=== PATIENT | female | born 1955 | race Caucasian/White ===

== ENCOUNTER → 2022-07-29 06:58 | Outpatient (CLI) | payer MEDICARE, MEDICAID, SELFPAY ==
--- NOTE | 2022-07-29 07:04 | XR_ITS ---
FINAL REPORT CLINICAL HISTORY: Right shoulder pain FINDINGS: RIGHT SHOULDER Three views demonstrate no acute fracture or dislocation. The visualized joint spaces are normally aligned. There are mild degenerative changes of the acromioclavicular and glenohumeral joints. A chronic calcification is seen of the AC joint measuring 9 mm. The soft tissues are unremarkable. IMPRESSION: No acute bony abnormality. Reviewed, Interpreted and Dictated by Mars Donaldson III, MD Transcribed by Luna Flaherty Authenticated and [facility]
--- NOTE | 2022-07-29 07:14 | MR_ITS ---
FINAL REPORT CLINICAL HISTORY: Right shoulder pain. LIMITED ROM. NO INJURY OR TRAUMA FINDINGS: Multiplanar MR imaging of the right shoulder was performed without contrast. Motion artifact is seen on all sequences which limits exam sensitivity. There is a high-grade, partial versus complete tear of the distal supraspinatus tendon. Tear measures approximately 13 mm in AP dimension. The infraspinatus tendon is intact. There are mild degenerative changes of the acromioclavicular joint. Moderate fluid is seen in the subacromial/subdeltoid bursa. The glenoid labrum is not well visualized. No definite tear is seen.. The long head of the biceps tendon is intact. There is no evidence of fracture, bone bruise or marrow edema. There are multiple subchondral cysts in the humeral head. No significant glenohumeral joint effusion is identified. The musculature is intact. There is no evidence of soft tissue mass. IMPRESSION: Exam limited by motion artifact. High-grade partial versus complete tear of the distal supraspinatus tendon. 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 Reviewed, Interpreted and Dictated by Mars Donaldson III, MD Transcribed by Luna Flaherty Authenticated and [facility]
== END ==
PROVIDERS: PCP Emergency Medicine; Visit Provider Specialist
DX: M25.511 Pain in right shoulder (principal)
CPT/HCPCS: 73030; 73221

== ENCOUNTER 2022-08-21 08:38 | Emergency (ER) | payer MEDICARE, MEDICAID, SELFPAY ==
[2022-08-21 08:39] VITALS: BP 161/76; PULSE 75; RESP 16; TEMP 37.1; O2SAT 99; BMI 27.9
--- NOTE | 2022-08-21 08:48 | HMH.EDGENADL ---
Discharge Plan Disposition Patient Disposition: Home, Self-Care Condition: Good Chief Complaint: PAIN Prescriptions Prescriptions: No Action atorvastatin [Lipitor] 10 mg tablet 10 mg PO DAILY amlodipine [Norvasc] 10 mg tablet 5 mg PO DAILY carbidopa-levodopa [Sinemet] 25-100 mg tablet 1 tab PO BID sertraline [Zoloft] 25 mg tablet 50 mg PO DAILY Ingrezza 80 mg capsule 80 mg PO DAILY Qty: 30 3RF hydrocodone-acetaminophen 5-325 mg tablet 1 tab PO TID Qty: 90 0RF Referrals Follow up/Referrals: Provider,Referral, MD [Primary Care Provider] - See instructions Activity Restrictions/Add. Instructions Additional Instructions/Restrictions: Follow-up with your orthopedic surgeon Clinical Impressions Clinical Impression: Rotator cuff disorder Instructions Patient Instructions: DI for Shoulder Pain, Shoulder Tendinopathy Discharge ED Provider: Jay Parra Adult HPI General Stated complaint: Rt arm pain, no accident Time Seen by Provider: 08/21/22 08:53 History of Present Illness HPI narrative: This is a 66-year-old white female who presents with pain in her right shoulder. Patient had an MRI done on July 29 which revealed a tear of the distal supraspinatus tendon also mild AC arthrosis with subchondral bursitis. Patient presents today stating that her [place] is not working and she wants something stronger. Patient also is requesting a brace patient denies any numbness or weakness in the right hand patient denies any recent trauma. Related Data Home Medications Medication Instructions Recorded Confirmed amlodipine 10 mg tablet (Norvasc) 5 mg PO DAILY 07/10/22 07/30/22 atorvastatin 10 mg tablet (Lipitor) 10 mg PO DAILY 07/10/22 07/30/22 carbidopa 25 mg-levodopa 100 mg 1 tab PO BID 07/10/22 07/30/22 tablet (Sinemet) sertraline 25 mg tablet (Zoloft) 50 mg PO DAILY 07/10/22 07/30/22 Previous Rx's Medication Instructions Recorded valbenazine 80 mg capsule 80 mg PO DAILY #30 caps 07/30/22 (Ingrezza) hydrocodone 5 mg-acetaminophen 325 1 tab PO TID #90 tabs 08/15/22 mg tablet Allergies Allergy/AdvReac Type Severity Reaction Status Date / Time Unable to Assess Allergy Verified 07/30/22 09:30 PFSH PFSH Disclaimer: The information contained in this section may have been updated after the patient was seen, as this information can be updated by other users. Social History (Updated 07/30/22 @ 18:43 by Mell Horton MD) Smoking Status: Current every day smoker alcohol intake: never current occupational status: unemployed Travel in the last 8 weeks: None ROS Obtained: Yes All systems reviewed & no additional complaints except as documented Skin no rash or lesions HEENT no runny nose sore throat Pulmonary no cough or shortness of breath Cardiovascular no chest pain pressure heaviness GI no abdominal pain nausea or vomiting no dysuria pyuria hematuria Musculoskeletal see HPI Endocrine no polydipsia polyuria or polyphasia Psych no SI or HI The rest of the systems were reviewed and found to be negative Physical Exam Narrative Physical exam: Skin: Warm and dry HEENT: Normocephalic atraumatic extract muscles are intact pupils are equal and reactive to light Neck: Supple nontender Lungs: Clear to auscultation Heart: Regular rate and rhythm Abdomen: NABS soft nontender Extremities: No clubbing cyanosis or edema Neurologic: No unilateral weakness or numbness Lymphatic: No cervical or inguinal adenopathy Musculoskeletal: Examination of the right shoulder reveals tenderness at the AC joint there is limited range of motion due to pain. Distal CMS is intact Psych: No SI or HI General General appearance: alert Respiratory Respiratory exam: Present normal lung sounds bilaterally Cardiovascular Cardiovascular exam: Present regular rate Neurological Exam Neurological exam: Present alert Medical Decision Making Jairo Inquiry Pt receivin
--- NOTE | 2022-08-21 09:05 | PC.NURSE ---
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
[2022-08-21 09:09] VITALS: BP 119/70; PULSE 73; RESP 18; TEMP 36.9; O2SAT 98
== END 2022-08-21 09:10 | disposition home or self-care (01) ==
LOC: ER 09:02
PROVIDERS: Emergency Provider Emergency Medicine; PCP Emergency Medicine
DX: M25.511 Pain in right shoulder (principal); F17.200 Nicotine dependence, unspecified, uncomplicated
CPT/HCPCS: 99282; 99283

== ENCOUNTER 2022-11-07 10:29 | Emergency (ER) | payer MEDICARE, MEDICAID, SELFPAY ==
[2022-11-07 10:31] VITALS: BP 119/58; PULSE 62; RESP 18; TEMP 37.3; O2SAT 97; BMI 27.5
[2022-11-07 10:39] VITALS: BP 119/58; PULSE 64; O2SAT 98
--- NOTE | 2022-11-07 10:39 | PC.NURSE ---
pt given call faustin and is hooked to monitor at this time.
[2022-11-07 11:01] VITALS: BP 123/94; PULSE 65; O2SAT 99
--- NOTE | 2022-11-07 11:12 | HMH.EDGENADL ---
Discharge Plan Disposition Patient Disposition: Home, Self-Care Prescriptions Prescriptions: New ondansetron 4 mg tablet,disintegrating 4 mg PO Q6H PRN (Reason: nausea and vomiting) Qty: 10 0RF No Action atorvastatin [Lipitor] 10 mg tablet 10 mg PO DAILY amlodipine [Norvasc] 10 mg tablet 5 mg PO DAILY sertraline [Zoloft] 25 mg tablet 50 mg PO DAILY carbidopa-levodopa [Sinemet] 25-100 mg tablet 1 tab PO TID Ingrezza 80 mg capsule 80 mg PO DAILY Qty: 30 3RF hydrocodone-acetaminophen 5-325 mg tablet 1 tab PO TID Qty: 90 0RF Referrals Follow up/Referrals: Provider,Referral, MD [Primary Care Provider] - See instructions Activity Restrictions/Add. Instructions Additional Instructions/Restrictions: Call your family doctor to establish care for this visit to the emergency department and schedule follow-up within 48 hours to ensure improvement. If you have any worsening of your condition or any other concerning signs or symptoms, return to the emergency department or your primary care doctor for further evaluation. Clinical Impressions Clinical Impression: Vomiting Qualifiers: Vomiting type: unspecified Nausea presence: with nausea Qualified Code(s): R11.2 - Nausea with vomiting, unspecified Instructions Patient Instructions: DI for Diarrhea and Traveler's Diarrhea -- Adult, DI for Diarrhea and Traveler's Diarrhea -- Child, DI for Nausea -- Adult, DI for Nausea -- Child, Nausea and Vomiting-Adult Discharge ED Provider: Carlos Alberto Salamanca General Adult HPI General Chief complaint: Nausea/Vomiting/Diarrhea Stated complaint: vomiting Time Seen by Provider: 11/07/22 10:36 Mode of Arrival: Ambulatory Source of Information: Patient Limitations: No Limitations Description of Symptoms (Recalled from ER Triage Doc. by RN): Pt reports the food at [facility] is making me sick every time I eat it . Pt reports no vomiting today. Pt states she also pees all the time r/t the tea they are giving me. \ History of Present Illness HPI narrative: This is a 67-year-old female with no relevant medical history presenting with multiple complaints. Patient states that she does not like the food at her [facility] facility and makes her vomit whenever she eats it, but she is able to tolerate from a gas station and other restaurants. Also states that she pees every time she drinks ice tea. Does not wish to live at [place] anymore. Has no other complaints at this time. Related Data Home Medications Medication Instructions Recorded Confirmed amlodipine 10 mg tablet (Norvasc) 5 mg PO DAILY 07/10/22 10/21/22 atorvastatin 10 mg tablet (Lipitor) 10 mg PO DAILY 07/10/22 10/21/22 sertraline 25 mg tablet (Zoloft) 50 mg PO DAILY 07/10/22 10/21/22 carbidopa 25 mg-levodopa 100 mg 1 tab PO TID 10/21/22 10/21/22 tablet (Sinemet) Previous Rx's Medication Instructions Recorded valbenazine 80 mg capsule 80 mg PO DAILY #30 caps 07/30/22 (Ingrezza) hydrocodone 5 mg-acetaminophen 325 1 tab PO TID #90 tabs 11/01/22 mg tablet ondansetron 4 mg disintegrating 4 mg PO Q6H PRN nausea and 11/07/22 tablet vomiting #10 tabs Allergies Allergy/AdvReac Type Severity Reaction Status Date / Time cephalexin [From Keflex] Allergy Intermediate Verified 10/21/22 14:34 [facility] Disclaimer: The information contained in this section may have been updated after the patient was seen, as this information can be updated by other users. Social History Smoking Status: Unknown if ever smoked alcohol intake: never current occupational status: unemployed Travel in the last 8 weeks: None ROS Obtained: Yes All systems reviewed & no additional complaints except as documented Physical Exam General General appearance: alert, in no apparent distress and other ( ) Head Head exam: atraumatic and normocephalic Eye Eye exam: Present normal appearance,
--- NOTE | 2022-11-07 11:27 | PC.NURSE ---
bedside FS 139. pt in the bathroom to give urine sample. notified
[2022-11-07 11:31] LABS: POC Glucose,Bedside 139 (70-110)
[2022-11-07 11:33] LABS: Microscopic, Urine URINE MICROSCOPIC (MICROSCOPIC)
[2022-11-07 11:50] LABS: Appearance,Urine Slightly Cloudy (Clear); Bilirubin,Urine Trace (Negative); Blood, Urine Negative (Negative); Color,Urine Yellow (Yellow); Glucose,Urine (UA) Negative (Negative); Ketones,Urine 1+ (Negative); Leukocyte Esterase,Urine Negative (Negative); Nitrate,Urine Negative (Negative); Protein,Urine 1+ (Negative); Urobilinogen,Urine 0.2 EU/dl (0.2)
[2022-11-07 11:57] LABS: Calcium Oxalate Crystals,Urine 1+ /lpf; Squamous Epithelial Cell,Urine Occasional #/hpf (0-5)
[2022-11-07 12:00] VITALS: BP 149/60; PULSE 58; RESP 19; TEMP 37.2; O2SAT 100
== END 2022-11-07 12:01 | disposition home or self-care (01) ==
PROVIDERS: Emergency Provider Emergency Medicine
DX: R11.2 Nausea with vomiting, unspecified (principal)
CPT/HCPCS: 81001; 82962; 87086; 99284

== ENCOUNTER 2022-11-18 10:48 | Emergency (ER) | payer MEDICARE, MEDICAID, SELFPAY ==
[2022-11-18 11:00] VITALS: BP 118/62; PULSE 69; RESP 20; TEMP 36.6; O2SAT 99; BMI 27.5
--- NOTE | 2022-11-18 11:22 | HMH.EDGENADL ---
Discharge Plan Disposition Patient Disposition: Home, Self-Care Chief Complaint: Skin/Abscess/Foreign Body Prescriptions Prescriptions: No Action atorvastatin [Lipitor] 10 mg tablet 10 mg PO DAILY amlodipine [Norvasc] 10 mg tablet 5 mg PO DAILY sertraline [Zoloft] 25 mg tablet 50 mg PO DAILY carbidopa-levodopa [Sinemet] 25-100 mg tablet 1 tab PO TID Ingrezza 80 mg capsule 80 mg PO DAILY Qty: 30 3RF hydrocodone-acetaminophen 5-325 mg tablet 1 tab PO TID Qty: 90 0RF ondansetron 4 mg tablet,disintegrating 4 mg PO Q6H PRN (Reason: nausea and vomiting) Qty: 10 0RF Referrals Follow up/Referrals: Provider,Referral, MD [Primary Care Provider] - See instructions Activity Restrictions/Add. Instructions Additional Instructions/Restrictions: At this time it was felt you are safe to be discharged home. If new or worsening symptoms please do not hesitate to return the emergency department. If symptoms persist please follow-up with your family doctor as you are able. Please apply your mupirocin 2-3 times a day for 5 days over your infected bug bite. Clinical Impressions Clinical Impression: Bug bite with infection Discharge ED Provider: Fabrice Saenz General Adult HPI General Chief complaint: Skin/Abscess/Foreign Body Stated complaint: sore on Lt ankle, redness Time Seen by Provider: 11/18/22 11:15 Mode of Arrival: Wheelchair Source of Information: Patient Limitations: No Limitations Description of Symptoms (Recalled from ER Triage Doc. by RN): pt to ed c/o red spot on her left ankle. pt states it has been present x2 days. History of Present Illness HPI narrative: Patient is a 67-year-old female with no pertinent past medical history presents emergency department for evaluation of bug bite. It has been there for 1 to 2 weeks, left lateral ankle. Due to overlying redness she presents here for continued evaluation. Patient states she thinks it was a bedbug bite. No other acute complaints at this time. Related Data Home Medications Medication Instructions Recorded Confirmed amlodipine 10 mg tablet (Norvasc) 5 mg PO DAILY 07/10/22 10/21/22 atorvastatin 10 mg tablet (Lipitor) 10 mg PO DAILY 07/10/22 10/21/22 sertraline 25 mg tablet (Zoloft) 50 mg PO DAILY 07/10/22 10/21/22 carbidopa 25 mg-levodopa 100 mg 1 tab PO TID 10/21/22 10/21/22 tablet (Sinemet) Previous Rx's Medication Instructions Recorded valbenazine 80 mg capsule 80 mg PO DAILY #30 caps 07/30/22 (Ingrezza) hydrocodone 5 mg-acetaminophen 325 1 tab PO TID #90 tabs 11/01/22 mg tablet ondansetron 4 mg disintegrating 4 mg PO Q6H PRN nausea and 11/07/22 tablet vomiting #10 tabs Allergies Allergy/AdvReac Type Severity Reaction Status Date / Time cephalexin [From Keflex] Allergy Intermediate Verified 10/21/22 14:34 [facility] Disclaimer: The information contained in this section may have been updated after the patient was seen, as this information can be updated by other users. Social History Smoking Status: Never smoker alcohol intake: never current occupational status: unemployed Travel in the last 8 weeks: None ROS Obtained: Yes Systems reviewed as appropriate & no additional complaints except as documented Physical Exam General General appearance: alert and in no apparent distress Head Head exam: atraumatic and normocephalic Eye Eye exam: Present PERRL ENT ENT exam: Present mucous membranes moist Neck Neck exam: Present normal inspection Chest Chest inspection: Present normal inspection and symmetric chest wall rise Respiratory Respiratory exam: Absent respiratory distress Cardiovascular Cardiovascular exam: Present regular rate and normal rhythm Abdominal Exam Abdominal exam: Present soft Extremities Exam Extremities exam: Present other (Subcentimeter open wound with 0.5 cm circumferential erythema, no fluctuance. L
[2022-11-18 11:40] VITALS: BP 122/70; PULSE 62; RESP 20; TEMP 36.6; O2SAT 98
== END 2022-11-18 11:42 | disposition home or self-care (01) ==
PROVIDERS: Emergency Provider Emergency Medicine
DX: L08.9 Local infection of the skin and subcutaneous tissue, unspecified (principal); S90.562S Insect bite (nonvenomous), left ankle, sequela; W57.XXXS Bitten or stung by nonvenomous insect and other nonvenomous arthropods, sequela
CPT/HCPCS: 99283

== ENCOUNTER 2022-11-27 10:00 | Outpatient (RCR) | payer MEDICARE, MEDICAID, SELFPAY ==
--- NOTE | 2022-10-23 11:04 | HMH.OTOPEV ---
OT Inpatient Evaluation Rehab OT Outpatient Eval Start: 10/23/22 10:36 Freq: Status: Active Protocol: Document 10/23/22 10:37 RMARSHALL (Rec: 10/23/22 11:03 [id number] E-signed By Davin Friend, OT Outpatient Therapy Subjective History Subjective History Pt is a 67 year old female who reports to therapy for initial evaluation to right shoulder. Pt has a past medical history of parkinson' sPt is unable to recall how long her shoulder has been painful and limited AROM. Pt did have a MRI completed in July 2022 and was found to have the following: High-grade partial versus complete tear of the distal supraspinatus tendon. Mild AC joint arthrosis with subacromial/ subdeltoid bursitis. Pt is right hand dominant. Pt reports she had an injection in right shoulder ~8 weeks ago and her pain has improved. However, pt remains significantly limited with AROM and strength at right shoulder. Pt will continue to be seen weekly in order address deficits. Chief Complaint Pain,Stiff,Weakness Symptom Type Ache,Throb,Sharp,Dull Symptoms Relieved By Rest/Positioning Symptoms Aggravated By Physical Activity,Lifting Prior Functional Limitations None Current Functional Limitations Reaching,Lifting,Housework, Dressing,Sleeping,Recreation Activity Symptom Description Intermittent,Activity Dependent Level of pain today (0-10) 0 Pain scale - at its best (0-10) 0 Pain scale - at its worst (0-10) 2 Shoulder/Elbow Eval Shoulder Objective Measurements Shoulder ROM Right Shoulder Abduction Active Range of 65 degrees Motion (degrees) Shoulder Flexion Active Range of Motion 80 degrees (degrees) Query Text: Shoulder External Rotation Active Range 45 degrees of Motion (degrees) Shoulder Internal Rotation Active Range 20 degrees of Motion (degrees) pain with active ROM shoulder exam right standard
--- NOTE | 2022-11-18 10:48 | HMH.RHREAS ---
Rehab Reassessment Rehab OP Re-assessment Start: 10/23/22 10:36 Freq: Status: Active Protocol: Document 11/18/22 10:13 ABEL (Rec: 11/18/22 10:[id number] E-signed By Davin Friend OT Rehab Re-assessment Subjective Subjective It's terrible, you are making it worst. Objective Objective Notes Pt continues to be seen weekly in order to address right shoulder defecits. Each session, pt engages in AROM and AAROM exercises. Pt has continuously refused PROM manual therapy and modalities. Assessment Progress Assessment No Progress Assessment Notes Pt does not demonstrate progress with R shoulder AROM since initial evaluation. Each session, pt remains confrontational towards therapist. Pt constantly accuses therapist of making her right shoulder worse and that she wants to be transferred to [facility]. She consistently refuses prom manual therapy and modalities despite continued re-education of the importance. Therapist attempted discharge of patient today due to no progress, but patient refused and yelled at therapist multiple times then proceeded to make another appointment despite recommendation for discharge. Therapist plans to reach out to Dr. Vasquez and discuss patient's current behavior and noncompliance. R shoulder current AROM Flex: 90 degrees Abd: 65 degrees ER: 45 degrees IR: 20 degrees Patient goals met N/a Goals Not Met see below Revised Goals ST-5 LT-5 Plan Plan Therapist recommends discharge at this time due to continued
== END 2022-11-27 10:05 | disposition home or self-care (01) ==
LOC: OT 10:00
PROVIDERS: PCP Emergency Medicine; Visit Provider Orthopaedic Surgery
DX: M79.601 Pain in right arm (principal)
CPT/HCPCS: 97010; 97110; 97140; 97164; 97166

== ENCOUNTER 2022-11-29 02:04 | Emergency (ER) | payer MEDICARE, MEDICAID, SELFPAY ==
[2022-11-29 02:07] VITALS: BP 166/85; PULSE 65; RESP 18; TEMP 36.3; O2SAT 100; BMI 27.5
--- NOTE | 2022-11-29 02:11 | HMH.EDGENADL ---
Discharge Plan Disposition Patient Disposition: Home, Self-Care Prescriptions Prescriptions: New nitrofurantoin monohyd/m-cryst [Macrobid] 100 mg capsule 100 mg PO BID 5 Days Qty: 10 0RF Rx Instructions: must administer with a meal/food No Action atorvastatin [Lipitor] 10 mg tablet 10 mg PO DAILY amlodipine [Norvasc] 10 mg tablet 5 mg PO DAILY sertraline [Zoloft] 25 mg tablet 50 mg PO DAILY carbidopa-levodopa [Sinemet] 25-100 mg tablet 1 tab PO TID Ingrezza 80 mg capsule 80 mg PO DAILY Qty: 30 3RF hydrocodone-acetaminophen 5-325 mg tablet 1 tab PO TID Qty: 90 0RF ondansetron 4 mg tablet,disintegrating 4 mg PO Q6H PRN (Reason: nausea and vomiting) Qty: 10 0RF Referrals Follow up/Referrals: Provider,Referral, MD [Primary Care Provider] - See instructions Activity Restrictions/Add. Instructions Additional Instructions/Restrictions: Call your family doctor to establish care for this visit to the emergency department and schedule follow-up within 48 hours to ensure improvement. If you have any worsening of your condition or any other concerning signs or symptoms, return to the emergency department or your primary care doctor for further evaluation. Antibiotic twice daily for 5 days. Maintain follow-up with neurology for your Parkinson's and tremor Clinical Impressions Clinical Impression: Tremor, Cystitis, Hypokalemia Discharge ED Provider: Carlos Alberto Salamanca General Adult HPI General Chief complaint: PAIN Stated complaint: body aches and shaking Time Seen by Provider: 11/29/22 02:05 History of Present Illness HPI narrative: 67-year-old female history of hypertension, hyperlipidemia, Parkinson's treated with carbidopa levodopa presenting with shakes. Patient states that she has been shaking worse for about 2 months. Been getting worse the past couple of days and states that she has not been able to sleep. Tolerating p.o. intake, but states that she is achy everywhere. No fevers or chills, dysuria or hematuria, abdominal pain, chest pain, neurologic deficits otherwise. Related Data Home Medications Medication Instructions Recorded Confirmed amlodipine 10 mg tablet (Norvasc) 5 mg PO DAILY 07/10/22 10/21/22 atorvastatin 10 mg tablet (Lipitor) 10 mg PO DAILY 07/10/22 10/21/22 sertraline 25 mg tablet (Zoloft) 50 mg PO DAILY 07/10/22 10/21/22 carbidopa 25 mg-levodopa 100 mg 1 tab PO TID 10/21/22 10/21/22 tablet (Sinemet) Previous Rx's Medication Instructions Recorded valbenazine 80 mg capsule 80 mg PO DAILY #30 caps 07/30/22 (Ingrezza) hydrocodone 5 mg-acetaminophen 325 1 tab PO TID #90 tabs 11/01/22 mg tablet ondansetron 4 mg disintegrating 4 mg PO Q6H PRN nausea and 11/07/22 tablet vomiting #10 tabs nitrofurantoin 100 mg PO BID 5 days #10 caps 11/29/22 monohydrate/macrocrystals 100 mg capsule (Macrobid) Allergies Allergy/AdvReac Type Severity Reaction Status Date / Time cephalexin [From Keflex] Allergy Intermediate Verified 10/21/22 14:34 [facility] Disclaimer: The information contained in this section may have been updated after the patient was seen, as this information can be updated by other users. Social History Smoking Status: Never smoker alcohol intake: never current occupational status: unemployed Travel in the last 8 weeks: None ROS Obtained: Yes All systems reviewed & no additional complaints except as documented Physical Exam General General appearance: alert, in no apparent distress and other (disheveled) Head Head exam: atraumatic and normocephalic Eye Eye exam: Present normal appearance, PERRL and EOMI ENT ENT exam: Present mucous membranes moist Neck Neck exam: Present normal inspection, full ROM and trachea midline Respiratory Respiratory exam: Present normal lung sounds bilaterally; Absent respiratory distress, wheezes, stridor, accessory musc
[2022-11-29 02:24] LABS: Basophils # 0.1 K/mm3 (0-0.2); Basophils % 0.9 % (0.1-2.0); Eosinophils # 0.2 K/mm3 (0.0-0.4); Eosinophils % 3.8 % (0.1-12.0); Hematocrit 43.4 % (37.0-47.0); Hemoglobin 13.4 g/dL (12.2-16.2); Lymphocytes # 1.3 K/mm3 (0.7-4.5); Lymphocytes % 20.8 % (10-50); Mean Corpuscular HGB Conc 30.9 g/dL (31.8-35.4); Mean Corpuscular Hemoglobin 28.6 pg (27.0-31.2); Mean Corpuscular Volume 92.5 fl (81-99); Mean Platelet Volume 7.7 fl (7.4-10.4); Monocytes # 0.5 K/mm3 (0.1-1.0); Monocytes % 7.5 % (1.7-9.3); Neutrophils # 4.3 K/mm3 (1.8-7.8); Platelet Count 281 K/mm3 (142-424); Red Blood Count 4.69 M/mm3 (4.20-5.40); Red Cell Distribution Width 13.3 % (11.5-17.5); White Blood Count 6.4 K/mm3 (4.8-10.8)
[2022-11-29 02:28] LABS: Chloride 101 mmol/L (98-107); Potassium 3.4 mmoL/L (3.5-5.1); Sodium 140 mmol/L (136-145)
[2022-11-29 02:30] LABS: Alanine Aminotransferase 14 U/L (12-78); Alkaline Phosphatase 114 U/L (38-126); Aspartate Amino Transferase 25 U/L (14-36); Bilirubin,Total 0.4 mg/dl (0.2-1.3); Blood Urea Nitrogen 14 mg/dl (7-17); Creatinine Clearance Estimated 69 mL/min (50-200); Estimated Glomerular Filt Rate 55 ml/min (>60); GFR (African American) 67 ML/MIN (>60)
[2022-11-29 02:31] LABS: Albumin Level 4.3 g/dl (3.5-5.0); Albumin/Globulin Ratio 1.5 (1.1-1.8); Anion Gap 13.4 mEq/L (5-15); Calcium 9.2 mg/dl (8.4-10.2); Carbon Dioxide 29 mmol/L (22.0-30.0); Creatine Kinase 40 U/L (30-135); Globulin 2.9 g/dL (1.3-3.2); Glucose 119 mg/dl (74-100); Total Protein,Serum 7.2 g/dl (6.3-8.2)
[2022-11-29 03:21] LABS: Microscopic, Urine URINE MICROSCOPIC (MICROSCOPIC)
[2022-11-29 03:24] LABS: Appearance,Urine SL CLOUDY (Clear); Bilirubin,Urine Negative (Negative); Blood, Urine Negative (Negative); Color,Urine YELLOW (Yellow); Glucose,Urine (UA) Negative (Negative); Ketones,Urine Negative (Negative); Leukocyte Esterase,Urine 2+ (Negative); Nitrate,Urine Negative (Negative); Protein,Urine Negative (Negative); Urobilinogen,Urine 0.2 EU/dl (0.2)
[2022-11-29 03:43] LABS: Amorphous Sediment,Urine 1+ /lpf; Bacteria,Urine 2+ /lpf
--- NOTE | 2022-11-29 04:06 | PC.NURSE ---
Called [facility] for transport, will call back with update.
[2022-11-29 04:14] VITALS: BP 131/78; PULSE 87; RESP 18; TEMP 37.1; O2SAT 97
--- NOTE | 2022-12-03 09:37 | PC.NURSE ---
reviewed urine culture results with Dr. Salamanca, pt d/c on ER on Macrobid bid x5 days. States adequate coverage based on culture and sensitivity is sensitive for macrobid.
== END 2022-11-29 04:26 | disposition home or self-care (01) ==
PROVIDERS: Emergency Provider Emergency Medicine
DX: E87.6 Hypokalemia (principal); G20 Parkinson's disease; N30.01 Acute cystitis with hematuria; E78.5 Hyperlipidemia, unspecified; I10 Essential (primary) hypertension
CPT/HCPCS: 80053; 81001; 82550; 85025; 87086; 87088; 87186; 96365; 99285; J3475

== ENCOUNTER 2022-12-08 23:01 | Emergency (ER) | payer MEDICARE, MEDICAID, SELFPAY ==
[2022-12-08 23:01] VITALS: BP 148/87; PULSE 69; RESP 20; TEMP 36.6; O2SAT 100; BMI 29.8
--- NOTE | 2022-12-08 23:01 | PC.NURSE ---
in room talking with patient at this time.
--- NOTE | 2022-12-08 23:13 | HMH.EDGENADL ---
Discharge Plan Disposition Patient Disposition: Home, Self-Care Prescriptions Prescriptions: New sulfamethoxazole-trimethoprim 800-160 mg tablet 1 tab PO Q12H 7 Days Qty: 14 0RF No Action atorvastatin [Lipitor] 10 mg tablet 10 mg PO DAILY amlodipine [Norvasc] 10 mg tablet 5 mg PO DAILY sertraline [Zoloft] 25 mg tablet 50 mg PO DAILY carbidopa-levodopa [Sinemet] 25-100 mg tablet 1 tab PO TID Ingrezza 80 mg capsule 80 mg PO DAILY Qty: 30 3RF hydrocodone-acetaminophen 5-325 mg tablet 1 tab PO TID Qty: 90 0RF ondansetron 4 mg tablet,disintegrating 4 mg PO Q6H PRN (Reason: nausea and vomiting) Qty: 10 0RF nitrofurantoin monohyd/m-cryst [Macrobid] 100 mg capsule 100 mg PO BID 5 Days Qty: 10 0RF Rx Instructions: must administer with a meal/food Activity Restrictions/Add. Instructions Additional Instructions/Restrictions: Please take antibiotics as prescribed for likely recurrent UTI. Please follow-up with your primary care provider. Please return to the emergency department if you develop any new or worsening symptoms or become concerned for your health. Clinical Impressions Clinical Impression: UTI (urinary tract infection) Instructions Patient Instructions: DI for Acute Abdominal Pain Discharge ED Provider: Hieu Youssef Adult HPI General Chief complaint: Abdominal Pain Stated complaint: Pain Time Seen by Provider: 12/08/22 23:05 History of Present Illness HPI narrative: 67-year-old female history of Parkinson's presents with multiple complaints. She is a resident at [facility]. The first thing that she said during HPI was that she hopes we can keep her for a couple of days because she does not have a ride home. She also reports that she does not like the food there. She reports that she has pain all over. She reports that she was seen here last week for similar symptoms and was diagnosed with a UTI. She reports that she has been taking antibiotics as prescribed but she is not sure what kind. She reports that she has had no fevers at home. She reports urinary symptoms including feeling the need to urinate but not being able to. She has Parkinson's, those symptoms are stable from baseline. She reports midline lower back pain, midline lower abdominal pain, no change in bowel function, no chest pain. Related Data Home Medications Medication Instructions Recorded Confirmed amlodipine 10 mg tablet (Norvasc) 5 mg PO DAILY 07/10/22 10/21/22 atorvastatin 10 mg tablet (Lipitor) 10 mg PO DAILY 07/10/22 10/21/22 sertraline 25 mg tablet (Zoloft) 50 mg PO DAILY 07/10/22 10/21/22 carbidopa 25 mg-levodopa 100 mg 1 tab PO TID 10/21/22 10/21/22 tablet (Sinemet) Previous Rx's Medication Instructions Recorded valbenazine 80 mg capsule 80 mg PO DAILY #30 caps 07/30/22 (Ingrezza) hydrocodone 5 mg-acetaminophen 325 1 tab PO TID #90 tabs 11/01/22 mg tablet ondansetron 4 mg disintegrating 4 mg PO Q6H PRN nausea and 11/07/22 tablet vomiting #10 tabs nitrofurantoin 100 mg PO BID 5 days #10 caps 11/29/22 monohydrate/macrocrystals 100 mg capsule (Macrobid) sulfamethoxazole 800 1 tab PO Q12H 7 days #14 tabs 12/09/22 mg-trimethoprim 160 mg tablet Allergies Allergy/AdvReac Type Severity Reaction Status Date / Time cephalexin [From Keflex] Allergy Intermediate Verified 10/21/22 14:34 PFSH PFS Disclaimer: The information contained in this section may have been updated after the patient was seen, as this information can be updated by other users. Social History Smoking Status: Current every day smoker alcohol intake: never current occupational status: unemployed Travel in the last 8 weeks: None ROS Obtained: Yes All systems reviewed & no additional complaints except as documented Physical Exam General General appearance: alert and in no apparent distress Head Hea
[2022-12-08 23:21] LABS: Basophils % 0.6 % (0.1-2.0); Eosinophils # 0.3 K/mm3 (0.0-0.4); Eosinophils % 3.9 % (0.1-12.0); Hematocrit 41.3 % (37.0-47.0); Lymphocytes # 1.4 K/mm3 (0.7-4.5); Lymphocytes % 20.9 % (10-50); Mean Corpuscular HGB Conc 31.5 g/dL (31.8-35.4); Mean Corpuscular Hemoglobin 29.1 pg (27.0-31.2); Mean Corpuscular Volume 92.3 fl (81-99); Monocytes # 0.5 K/mm3 (0.1-1.0); Monocytes % 6.6 % (1.7-9.3); Neutrophils # 4.6 K/mm3 (1.8-7.8); Platelet Count 269 K/mm3 (142-424); Red Blood Count 4.47 M/mm3 (4.20-5.40); Red Cell Distribution Width 13.2 % (11.5-17.5); White Blood Count 6.7 K/mm3 (4.8-10.8)
[2022-12-08 23:23] LABS: Alanine Aminotransferase 15 U/L (12-78); Albumin Level 4.6 g/dl (3.5-5.0); Albumin/Globulin Ratio 1.6 (1.1-1.8); Alkaline Phosphatase 100 U/L (38-126); Anion Gap 12.4 mEq/L (5-15); Aspartate Amino Transferase 30 U/L (14-36); Bilirubin,Total 0.5 mg/dl (0.2-1.3); Blood Urea Nitrogen 15 mg/dl (7-17); Calcium 9.4 mg/dl (8.4-10.2); Carbon Dioxide 29 mmol/L (22.0-30.0); Chloride 97 mmol/L (98-107); Creatinine Clearance Estimated 64 mL/min (50-200); Estimated Glomerular Filt Rate 49 ml/min (>60); GFR (African American) 60 ML/MIN (>60); Globulin 2.8 g/dL (1.3-3.2); Glucose 144 mg/dl (74-100); Potassium 3.4 mmoL/L (3.5-5.1); Sodium 135 mmol/L (136-145); Total Protein,Serum 7.4 g/dl (6.3-8.2)
[2022-12-08 23:30] VITALS: BP 135/76; PULSE 60; RESP 18; O2SAT 100
[2022-12-08 23:48] LABS: Microscopic, Urine URINE MICROSCOPIC (MICROSCOPIC)
[2022-12-08 23:55] LABS: Appearance,Urine SL CLOUDY (Clear); Blood, Urine Negative (Negative); Color,Urine YELLOW (Yellow); Glucose,Urine (UA) Negative (Negative); Ketones,Urine TRACE (Negative); Leukocyte Esterase,Urine 1+ (Negative); Nitrate,Urine Negative (Negative); PH,Urine 5.5 (5.0-8.5); Protein,Urine TRACE (Negative); Specific Gravity, Urine >= 1.030 (1.005-1.030)
[2022-12-08 23:59] LABS: Bilirubin,Urine 1+ (Negative)
[2022-12-09 00:08] LABS: Bacteria,Urine Trace /lpf; Calcium Oxalate Crystals,Urine 3+ /lpf; RBC,Urine Occasional #/hpf (0-3); Squamous Epithelial Cell,Urine Occasional #/hpf (0-5)
--- NOTE | 2022-12-09 00:22 | PC.NURSE ---
in room talking with patient at this time.
--- NOTE | 2022-12-09 00:38 | PC.NURSE ---
[facility]. staff states they do not have anyone that is able to transport the pt back.
[2022-12-09 00:46] VITALS: BP 135/76; PULSE 58; RESP 18; TEMP 36.7; O2SAT 99
--- NOTE | 2022-12-09 01:24 | PC.NURSE ---
calling dispatch at this time.
--- NOTE | 2022-12-09 02:21 | PC.NURSE ---
called Dispatch at this time.
--- NOTE | 2022-12-09 02:25 | PC.NURSE ---
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
--- NOTE | 2022-12-09 05:57 | PC.NURSE ---
Misty Beck, the Aide at [facility] wanted to check on the pt. Advised them that the pt has been discharged but still waiting for a ride to come pick her up. Advised that they do not have a vehicle at this time but as soon as the dayshift comes on they will send someone. Advised they should be there between [id number]. CR
--- NOTE | 2022-12-09 07:22 | PC.NURSE ---
Called [facility] re pt transport, they advised it would be 8 am before someone could come get them. 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
--- NOTE | 2022-12-09 07:26 | PC.NURSE ---
advised Bisi Wallis of this issue.
--- NOTE | 2022-12-09 08:11 | PC.NURSE ---
pt transportation is here
== END 2022-12-09 08:15 | disposition home or self-care (01) ==
PROVIDERS: Emergency Provider Emergency Medicine; PCP Emergency Medicine
DX: N39.0 Urinary tract infection, site not specified (principal); R10.30 Lower abdominal pain, unspecified; M54.50 Low back pain, unspecified; G20.A1 Parkinson's disease without dyskinesia, without mention of fluctuations; F17.200 Nicotine dependence, unspecified, uncomplicated; B96.89 Other specified bacterial agents as the cause of diseases classified elsewhere
CPT/HCPCS: 80053; 81001; 85025; 87086; 96374; 99285

== ENCOUNTER → 2023-01-20 10:38 | Outpatient (CLI) | payer MEDICARE, MEDICAID, SELFPAY ==
--- NOTE | 2023-01-20 10:50 | XR_ITS ---
PROCEDURE INFORMATION: Exam: XR Pelvis Exam date and time: 01/20/2023 11:02 AM Age: 67 years old Clinical indication: Pelvic pain; Additional info: Bilateral hip pain TECHNIQUE: Imaging protocol: Radiologic exam of the pelvis. Views: 1 or 2 view. COMPARISON: No relevant prior studies available. FINDINGS: Bones/joints: No fractures, dislocations, or bone lesions. Mild bone hypertrophy and medial joint space narrowing in both hips. Mild bone hypertrophy of the right and left greater trochanters and in the sacroiliac joints. Degenerative disc disease in the lower lumbar spine. Soft tissues: No soft tissue masses or radiopaque foreign bodies. IMPRESSION: 1. No acute findings in the pelvis. 2. 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 3. Degenerative disc disease in the lower lumbar spine..
--- NOTE | 2023-01-20 10:50 | XR_ITS ---
PROCEDURE INFORMATION: Exam: XR Left Foot Exam date and time: 01/20/2023 11:02 AM Age: 67 years old Clinical indication: Pain; Foot; Left; Additional info: Left foot pain TECHNIQUE: Imaging protocol: Radiologic exam of the left foot. Views: 1 or 2 views. COMPARISON: CR XR TIBIA FIBULA LT 2V 01/20/2023 11:02 AM FINDINGS: Bones/joints: No fractures, dislocations, or focal bone lesions. Plantar and Achilles heel spurs. Soft tissues: No masses, soft tissue gas, or radiopaque foreign bodies. IMPRESSION: No acute findings in the left foot foot.
--- NOTE | 2023-01-20 10:50 | XR_ITS ---
PROCEDURE INFORMATION: Exam: XR Left Tibia and Fibula Exam date and time: 01/20/2023 11:02 AM Age: 67 years old Clinical indication: Pain; Lower leg; Left; Additional info: Left leg pain TECHNIQUE: Imaging protocol: Radiologic exam of the left tibia and fibula. Views: 2 views. (4 images) COMPARISON: CR XR FOOT LT 2V 01/20/2023 11:02 AM FINDINGS: Bones/joints: No fractures, dislocations, or bone lesions. No significant joint space narrowing or widening. Mild bone hypertrophy of the tibial plateau and medial and lateral malleoli. Plantar and Achilles heel spurs. Soft tissues: No soft tissue gas, radiopaque foreign bodies, or masses. IMPRESSION: 1. No acute findings in the left tibia and fibula. 2. Mild osteoarthritis in the medial left knee and in the left ankle..
== END ==
PROVIDERS: PCP Emergency Medicine; Visit Provider Emergency Medicine
DX: M79.605 Pain in left leg (principal); M25.552 Pain in left hip
CPT/HCPCS: 72170; 73590; 73620

== ENCOUNTER 2023-01-20 11:13 | Emergency (ER) | payer MEDICARE, MEDICAID, SELFPAY ==
[2023-01-20] VITALS (13 sets, daily range): BP systolic 100–137; BP diastolic 53–74; PULSE 52–64; RESP 18; TEMP 36.5; O2SAT 97–100; BMI 27.5
--- NOTE | 2023-01-20 12:12 | HMH.EDGENADL ---
Discharge Plan Disposition Patient Disposition: Home, Self-Care Prescriptions Prescriptions: New gabapentin 100 mg capsule 100 mg PO BID Qty: 14 0RF No Action atorvastatin [Lipitor] 10 mg tablet 10 mg PO DAILY amlodipine [Norvasc] 10 mg tablet 5 mg PO DAILY sertraline [Zoloft] 25 mg tablet 50 mg PO DAILY carbidopa-levodopa [Sinemet] 25-100 mg tablet 1 tab PO TID Ingrezza 80 mg capsule 80 mg PO DAILY Qty: 30 3RF hydrocodone-acetaminophen 5-325 mg tablet 1 tab PO TID Qty: 90 0RF ondansetron 4 mg tablet,disintegrating 4 mg PO Q6H PRN (Reason: nausea and vomiting) Qty: 10 0RF nitrofurantoin monohyd/m-cryst [Macrobid] 100 mg capsule 100 mg PO BID 5 Days Qty: 10 0RF Rx Instructions: must administer with a meal/food sulfamethoxazole-trimethoprim 800-160 mg tablet 1 tab PO Q12H 7 Days Qty: 14 0RF Referrals Follow up/Referrals: Provider,Referral, MD [Primary Care Provider] - See instructions Activity Restrictions/Add. Instructions Additional Instructions/Restrictions: Call your family doctor to establish care for this visit to the emergency department and schedule follow-up within 48 hours to ensure improvement. If you have any worsening of your condition or any other concerning signs or symptoms, return to the emergency department or your primary care doctor for further evaluation. Clinical Impressions Clinical Impression: Intractable neuropathic pain of left lower extremity Discharge ED Provider: Carlos Alberto Salamanca General Adult HPI General Chief complaint: Extremity Injury, Lower Stated complaint: leg pain, no accident Time Seen by Provider: 01/20/23 11:21 Mode of Arrival: Wheelchair Source of Information: Patient Limitations: No Limitations Description of Symptoms (Recalled from ER Triage Doc. by RN): Patient reports left knee pain down to foot for about a month. History of Present Illness HPI narrative: 67-year-old female with numerous comorbidities, but none relevant to this presenting with left lower extremity pain. Patient states has been having pain in her left leg for about a month. She had surgery on her left lower extremity in the past but has chronic pain. It has been worse over the past few weeks. It is a burning, fire pain that does not radiate, mostly in her mid garcia to ankle. No trauma sustained. Has not noticed anything that makes it better or worse. Related Data Home Medications Medication Instructions Recorded Confirmed amlodipine 10 mg tablet (Norvasc) 5 mg PO DAILY 07/10/22 10/21/22 atorvastatin 10 mg tablet (Lipitor) 10 mg PO DAILY 07/10/22 10/21/22 sertraline 25 mg tablet (Zoloft) 50 mg PO DAILY 07/10/22 10/21/22 carbidopa 25 mg-levodopa 100 mg 1 tab PO TID 10/21/22 10/21/22 tablet (Sinemet) Previous Rx's Medication Instructions Recorded valbenazine 80 mg capsule 80 mg PO DAILY #30 caps 07/30/22 (Ingrezza) ondansetron 4 mg disintegrating 4 mg PO Q6H PRN nausea and 11/07/22 tablet vomiting #10 tabs nitrofurantoin 100 mg PO BID 5 days #10 caps 11/29/22 monohydrate/macrocrystals 100 mg capsule (Macrobid) sulfamethoxazole 800 1 tab PO Q12H 7 days #14 tabs 12/09/22 mg-trimethoprim 160 mg tablet hydrocodone 5 mg-acetaminophen 325 1 tab PO TID #90 tabs 12/16/22 mg tablet gabapentin 100 mg capsule 100 mg PO BID #14 caps 01/20/23 Allergies Allergy/AdvReac Type Severity Reaction Status Date / Time cephalexin [From Keflex] Allergy Intermediate Verified 10/21/22 14:34 [facility] Disclaimer: The information contained in this section may have been updated after the patient was seen, as this information can be updated by other users. Social History Smoking Status: Current every day smoker alcohol intake: never current occupational status: unemployed Travel in the last 8 weeks: None ROS Obtained: Yes All systems reviewed & no additional compl
== END 2023-01-20 13:37 | disposition home or self-care (01) ==
PROVIDERS: Emergency Provider Emergency Medicine
DX: M79.605 Pain in left leg (principal); G57.92 Unspecified mononeuropathy of left lower limb; F17.210 Nicotine dependence, cigarettes, uncomplicated
CPT/HCPCS: 72170; 73590; 73620; 99283

== ENCOUNTER 2023-03-02 11:00 | Emergency (ER) | payer MEDICARE, MEDICAID, SELFPAY ==
[2023-03-02 11:00] VITALS: BP 115/67; PULSE 70; RESP 18; O2SAT 99; BMI 27.5
--- NOTE | 2023-03-02 11:13 | PC.NURSE ---
Dr. Silva at [facility] for pt eval
--- NOTE | 2023-03-02 11:19 | HMH.EDGENADL ---
Discharge Plan Disposition Patient Disposition: Home, Self-Care Prescriptions Prescriptions: New gabapentin 300 mg tablet extended release 24 hr 300 mg PO HS 14 Days Qty: 14 0RF No Action atorvastatin [Lipitor] 10 mg tablet 10 mg PO DAILY amlodipine [Norvasc] 10 mg tablet 5 mg PO DAILY sertraline [Zoloft] 25 mg tablet 50 mg PO DAILY carbidopa-levodopa [Sinemet] 25-100 mg tablet 1 tab PO TID Ingrezza 80 mg capsule 80 mg PO DAILY Qty: 30 3RF gabapentin 100 mg capsule 100 mg PO BID Qty: 60 0RF hydrocodone-acetaminophen 5-325 mg tablet 1 tab PO TID Qty: 90 0RF ondansetron 4 mg tablet,disintegrating 4 mg PO Q6H PRN (Reason: nausea and vomiting) Qty: 10 0RF nitrofurantoin monohyd/m-cryst [Macrobid] 100 mg capsule 100 mg PO BID 5 Days Qty: 10 0RF Rx Instructions: must administer with a meal/food sulfamethoxazole-trimethoprim 800-160 mg tablet 1 tab PO Q12H 7 Days Qty: 14 0RF Activity Restrictions/Add. Instructions Additional Instructions/Restrictions: Your symptoms are consistent with a peripheral neuropathy given the stocking glove distribution and [id number] and burning sensation in your lower extremities also with the discontinuation of your gabapentin over the last 2 days. Please do not take previously prescribed gabapentin in addition to the gabapentin that I prescribed to you and discuss further with your primary care doctor escalation of your neuropathic pain medications. No other emergent medical condition identified today. Clinical Impressions Clinical Impression: Peripheral neuropathy, Neuropathic pain Discharge ED Provider: Faith Silva General Adult HPI General Chief complaint: Extremity Problem,Nontraumatic Stated complaint: Leg pain Time Seen by Provider: 03/02/23 11:12 Mode of Arrival: Ambulatory Source of Information: Patient and Medical Record Limitations: No Limitations Description of Symptoms (Recalled from ER Triage Doc. by RN): c/o all over shakes that has gotten worse over the last 2 months, left leg/foot hurts, hx of surgery on this leg and was told she would have trouble from this foot later on, denies any injury to her foot/ankle. Takes medicine for shakes but it doesnt work. History of Present Illness HPI narrative: Patient is a 67-year-old female who is a resident of [facility] presents today with chronic bilateral lower extremity pins and needle and burning pain of the legs worse on the left. Also has a chronic tremor. She states that they recently ran out of gabapentin and she has not had this in 48 hours. Denies any swelling denies any fevers denies any changes in temperature denies any injuries etc. Related Data Home Medications Medication Instructions Recorded Confirmed amlodipine 10 mg tablet (Norvasc) 5 mg PO DAILY 07/10/22 10/21/22 atorvastatin 10 mg tablet (Lipitor) 10 mg PO DAILY 07/10/22 10/21/22 sertraline 25 mg tablet (Zoloft) 50 mg PO DAILY 07/10/22 10/21/22 carbidopa 25 mg-levodopa 100 mg 1 tab PO TID 10/21/22 10/21/22 tablet (Sinemet) Previous Rx's Medication Instructions Recorded valbenazine 80 mg capsule 80 mg PO DAILY #30 caps 07/30/22 (Ingrezza) ondansetron 4 mg disintegrating 4 mg PO Q6H PRN nausea and 11/07/22 tablet vomiting #10 tabs nitrofurantoin 100 mg PO BID 5 days #10 caps 11/29/22 monohydrate/macrocrystals 100 mg capsule (Macrobid) sulfamethoxazole 800 1 tab PO Q12H 7 days #14 tabs 12/09/22 mg-trimethoprim 160 mg tablet gabapentin 100 mg capsule 100 mg PO BID #60 caps 01/28/23 hydrocodone 5 mg-acetaminophen 325 1 tab PO TID #90 tabs 02/03/23 mg tablet gabapentin 300 mg tablet,extended 300 mg PO HS 14 days #14 tabs 03/02/23 release 24 hr Allergies Allergy/AdvReac Type Severity Reaction Status Date / Time cephalexin [From Keflex] Allergy Intermediate Verified 10/21/22 14:34 [facility] Disclaimer: The information contained in this section may have bee
--- NOTE | 2023-03-02 11:33 | PC.NURSE ---
called [facility] to let them no pt was ready for discharge said she would tell her boss
[2023-03-02 12:45] VITALS: BP 115/67; PULSE 70; RESP 18; TEMP 36.7
== END 2023-03-02 12:47 | disposition home or self-care (01) ==
PROVIDERS: Emergency Provider Student in an Organized Health Care Education/Training Program
DX: G62.9 Polyneuropathy, unspecified (principal); M79.604 Pain in right leg; M79.605 Pain in left leg; F17.200 Nicotine dependence, unspecified, uncomplicated
CPT/HCPCS: 99283

== ENCOUNTER 2023-09-13 23:34 | Emergency (ER) | payer MEDICARE, MEDICAID, SELFPAY ==
--- NOTE | 2023-09-13 23:00 | ECG_ITS ---
APPROVED REPORT Exam: Resting ECG HR:47 bpm ECG Measurements Heart Rate [address] 134 P -83 QRSd 98 QRS -35 QT 425 T 77 QTc 388 Conclusion Sinus BRADYCARDIA LEFT AXIS DEVIATION [QRS AXIS < -30] NONSPECIFIC ST & T-WAVE ABNORMALITY Baseline artifact limits interpretation Electronically signed by : EDGAR PETERSON, 09/14/2023 06:46:20
[2023-09-13 23:28] VITALS: BP 139/68; PULSE 57; RESP 16; TEMP 36.5; O2SAT 99; BMI 25.2
--- NOTE | 2023-09-13 23:29 | XR_ITS ---
PROCEDURE INFORMATION: Exam: XR Chest Exam date and time: 09/13/2023 11:38 PM Age: 67 years old Clinical indication: Pain; Chest pressure; Additional info: Cp TECHNIQUE: Imaging protocol: Radiologic exam of the chest. Views: 1 view. Total images: 1 COMPARISON: MR SHOULDER RT WO CON 07/29/2022 7:36 AM FINDINGS: Tubes, catheters and devices: EKG leads are present. Lungs: Unremarkable. No consolidation. No pulmonary vascular congestion or edema. Pleural spaces: Unremarkable. No pleural effusion. No pneumothorax. Heart/Mediastinum: Unremarkable. No cardiomegaly. No mediastinal widening or hilar enlargement. Vasculature: Atherosclerotic aortic arch. Bones/joints: Osteopenia. Mild thoracic dextrocurvature. Mild degenerative changes thoracic spine. IMPRESSION: No radiographically acute cardiopulmonary process.
[2023-09-13 23:34] VITALS: BP 115/57; PULSE 48; RESP 15; O2SAT 99
--- NOTE | 2023-09-13 23:35 | ED_ITS ---
Discharge Plan Disposition Patient Disposition: Home, Self-Care Condition: Good Chief Complaint: Chest Pain Prescriptions Prescriptions: No Action atorvastatin [Lipitor] 10 mg tablet 10 mg PO DAILY amlodipine [Norvasc] 10 mg tablet 5 mg PO DAILY sertraline [Zoloft] 25 mg tablet 50 mg PO DAILY carbidopa-levodopa [Sinemet] 25-100 mg tablet 1 tab PO TID Ingrezza 80 mg capsule 80 mg PO DAILY Qty: 30 3RF acetaminophen [Tylenol Extra Strength] 500 mg tablet 500 mg PO Q6H PRN amantadine HCl 100 mg tablet 100 mg PO BID Qty: 60 5RF propranolol 40 mg tablet 40 mg PO BID MDD 80 mg Qty: 60 5RF Rx Instructions: 40 mg p.o. twice daily gabapentin 300 mg capsule 300 mg PO TID Qty: 90 2RF ondansetron 4 mg tablet,disintegrating 4 mg PO Q6H Qty: 120 0RF albuterol sulfate [Ventolin HFA] 90 mcg/actuation HFA aerosol inhaler 2 puff inhalation 6XD Qty: 8.5 2RF hydrocodone-acetaminophen 5-325 mg tablet 1 tab PO HS PRN (Reason: pain) Qty: 30 0RF Referrals Follow up/Referrals: Mell Horton MD [Staff Physician] - See instructions (While in ER for unrelated complaint, patient was persistently bradycardic with heart rate in the low 40s. I am concerned this is related to her propranolol dose. Patient describes orthostatic symptoms as well. Patient was normotensive, however review of records demonstrates normal heart rates prior to propranolol initiation. May need to reevaluate propranolol dosing for tremor control versus keeping a normal heart rate.) Provider,Referral, [Primary Care Provider] - See instructions Activity Restrictions/Add. Instructions Additional Instructions/Restrictions: You were evaluated in the ER. You are appropriate for discharge at this time. Continue taking home medications as prescribed. Increase the amount of water you are drinking to improve your kidney function. Talk to Dr. Horton about your propranolol since this is causing your heart rate to be low. Also make an appointment with your primary care physician for reevaluation in 2 to 3 days. Return to the ER with any new, worsening, or otherwise concerning symptoms. Clinical Impressions Clinical Impression: Bradycardia, Chest pain Discharge ED Provider: Christina Marcum General Chief Complaint: Chest Pain Stated Complaint: Chest Pain, SOA Time Seen by Provider: 09/13/23 23:43 Mode of Arrival: EMS Source of Information: Patient Limitations: No Limitations Description of Symptoms (Recalled from ER Triage Doc. by RN): Pt states she has had left anterior chest pain for the past 2 days which got worse this evening. Pt pain is non-radiating 11/17. Pt is having nausea, no vomiting. History of Present Illness HPI narrative: 67-year-old female presents to the ER for concerns of left-sided chest pain for the last 2 to 3 days. She states it got worse this evening. Patient states it does involve her left arm but does not radiate into her abdomen or jaw. Patient denies any history of heart attack and states she has been taking her blood pressure medication as directed. She believes her blood pressure has been getting too low and that is the problem. Patient states she has not had any nausea or vomiting, no dizziness or headache, no fever or other associated symptoms. Patient denies history of blood clot. She has not taken medications for her pain. Related Data Home Medications Medication Instructions Recorded Confirmed amlodipine 10 mg tablet (Norvasc) 5 mg PO DAILY 07/10/22 08/14/23 atorvastatin 10 mg tablet (Lipitor) 10 mg PO DAILY 07/10/22 08/14/23 sertraline 25 mg tablet (Zoloft) 50 mg PO DAILY 07/10/22 08/14/23 carbidopa 25 mg-levodopa 100 mg 1 tab PO TID 10/21/22 08/14/23 tablet (Sinemet) acetaminophen 500 mg tablet 500 mg PO Q6H PRN 04/01/23 08/14/23 (Tylenol Extra Strength) Previous Rx's Medication Instructions Recorded valbenazine 80 mg capsule 80 mg PO DAILY #30 caps 07/30/22 (Ingrezza) amantadine HCl 100 mg tablet 100 mg PO BID #60 tabs 04/01/23 propranolol 40 mg tablet 40 mg PO BID Tremor #60 tabs 06/16/23 albuterol sulfate 90 mcg/actuation 2 puff inhalation 6XD #8.5 grams 08/07/23 aerosol inhaler (Ventolin HFA) gabapentin 300 mg capsule 300 mg PO TID #90 caps 08/07/23 ondansetron 4 mg disintegrating 4 mg PO Q6H #120 tabs 08/07/23 tablet hydrocodone 5 mg-acetaminophen 325 1 tab PO HS PRN pain #30 tabs 09/01/23 mg tablet Allergies Allergy/AdvReac Type Severity Reaction Status Date / Time cephalexin [From Keflex] Allergy Intermediate Verified 08/27/23 12:04 [facility] Disclaimer: The information contained in this section may have been updated after the patient was seen, as this information can be updated by other users. Medical History Parkinsonian syndrome Most likely etiology EPS and baseline familial tremor. 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 Tremor History of tremor for longer than 20 years, (father with similar movement disorder). 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 Her tremor at rest has resolved, (likely improvement of EPS, parkinsonian syndrome). He has intention tremor most likely due to familiar predisposition, genetics, (father with history of tremor) Surgical History History of cholecystectomy Family History Other Coronary artery disease Heart attack Social History Smoking Status: Current every day smoker alcohol intake: never substance use type: denies use current occupational status: disabled Travel in the last 8 weeks: None household members: other housing: long term marital status: single ROS Obtained: Yes All systems reviewed & no additional complaints except as documented Constitutional Constitutional: Denies chills, Denies fever(s), Denies headache(s) and Denies weakness Eyes Eyes: Denies change in vision ENT Ears, Nose, Mouth, and Throat: Denies dizziness, Denies headache(s), Denies nasal congestion and Denies sore throat Cardiovascular Cardiovascular: Reports chest pain, Denies dyspnea and Denies leg edema Respiratory Respiratory: Denies cough and Denies dyspnea Gastrointestinal Gastrointestingal: Denies constipation, diarrhea, nausea or vomiting Genitourinary Female Genitourinary: Denies dysuria Musculoskeletal Musculoskeletal: Denies arthralgias, Denies myalgias, Denies numbness and Denies tingling Integumentary/Breasts Skin/Breast: Denies change in pigmentation Neurologic Neurologic: Denies dizziness, Denies headache(s), Denies numbness, Denies tingling, Reports tremor(s) (At baseline) and Denies weakness Physical Exam General General appearance: alert and in no apparent distress Head Head exam: atraumatic and normocephalic Eye Eye exam: Present PERRL and EOMI ENT ENT exam: Present mucous membranes moist Neck Neck exam: Present normal inspection and full ROM Chest Chest inspection: Present symmetric chest wall rise and tenderness (Costochondral junction bilaterally) Respiratory Respiratory exam: Present normal lung sounds bilaterally; Absent respiratory distress, wheezes or stridor Cardiovascular Cardiovascular exam: Present normal rhythm and bradycardia Abdominal Exam Abdominal exam: Present soft; Absent distention, tenderness, guarding or rebound Extremities Exam Extremities exam: Present full ROM Neurological Exam Neurological exam: Present alert, oriented X3 and other (Baseline parkinsonian type tremor); Absent motor sensory deficit Psychiatric Psychiatric exam: Present normal affect and normal mood Skin Skin exam: Present warm and dry HEART Score HEART Score HEART Score assessment performed?: Yes History (anamnesis): Slightly suspicious ECG: Non-specific disturbance Age: >65 years Risk factors: 1-2 risk factors Troponin: </= normal limit HEART Score: 4 Critical Care Critical Care Time Critical Care Time: No Medical Decision Making Jairo Inquiry Pt receiving controlled substance: No Vital Signs Vital Signs: 09/13/23 23:28 09/13/23 23:34 Temperature 97.7 F Temperature Source Oral Pulse Rate 48 L Pulse Rate [Left] 57 L Respiratory Rate 16 15 Blood Pressure 115/57 L Blood Pressure [Right Arm] 139/68 Blood Pressure Mean [Right Arm] 91 Blood Pressure Source Automatic Cuff Blood Pressure Source [Right Arm] Automatic Cuff Blood Pressure Position Sitting Blood Pressure Position [Right Arm] Sitting 02 Sat by Pulse Oximetry 99 99 Oxygen Delivery Method Room Air Room Air Lab Data Labs: Lab Results 09/13/23 23:30: WBC 4.6 L, RBC 4.38, Hgb 12.9, Hct 41.1, MCV 93.8, MCH 29.5, M CHC 31.5 L, RDW 13.7, Plt Count 194, MPV 8.1, Neut % (Auto) 61.8, Lymph % (Auto) 27.3, [place] % (Auto) 6.8, Eos % (Auto) 3.2, Baso % (Auto) 1.0, Neut # (Auto) 2.8, Lymph # (Auto) 1.3, [place] # (Auto) 0.3, Eos # (Auto) 0.2, Baso # (Auto) 0.0, Sodium 140, Potassium 4.4, Chloride 105, Carbon Dioxide 31 H, Anion Gap 8.4, BUN 20 H, Creatinine 1.20 H, Estimated Creat Clear 53, Estimated GFR 45 L, Est GFR ( Amer) 54 L, Glucose 108 H, Calcium 9.4, Total Bilirubin 0.3, AST 23, A LT 7 L, Alkaline Phosphatase 104, Troponin I < 0.01, Total Protein 6.8, Albumin 4.2, Globulin 2.6, Albumin/Globulin Ratio 1.6 09/13/23 23:41: PT 11.8, INR 1.06 09/13/23 23:30 09/13/23 23:30 Response Orders (Tests/Meds): ED MEDICATIONS Discontinued Medications Generic Name Dose Route Start Last Admin Trade Name Freq PRN Reason Stop Dose Admin Lactated Ringer's 1,000 mls @ 999 mls/hr 09/13/23 23:29 09/13/23 23:38 Lactated Ringer's 1000 Ml Bag IV 09/14/23 00:29 999 mls/hr .Q1H1M ONE Administration Ketorolac Tromethamine 15 mg 09/14/23 01:04 09/14/23 01:22 Ketorolac 30mg/Ml Vial IV 09/14/23 01:05 15 mg ONCE ONE Administration ORDERS Category Date Time Status CXR --portable [XR chest portable] Stat Exams 09/13/23 23:29 Completed CBC w/Auto Diff [Complete Blood Count Auto Diff] Stat Lab 09/13/23 23:30 Completed CMP [Comprehensive Metabolic Panel] Stat Lab 09/13/23 23:30 Completed PT INR [Prothrombin Time INR] Stat Lab 09/13/23 23:41 Completed Trop I [Troponin I] Stat Lab 09/13/23 23:30 Completed Troponin I Q3H Lab 09/14/23 01:42 Received Troponin I Q3H Lab 09/14/23 05:30 Ordered MDM Narrative Medical Decision Narrative: In summary, this 67-year-old female presents to the emergency department today with left-sided chest pain for the last 2 to 3 days, increasing in intensity tonight. On initial evaluation patient is hemodynamically stable though slightly bradycardic, afebrile, resting comfortably, cardiopulmonary exam overall is reassuring, no peripheral pitting edema, good blood pressure, at neurologic baseline with parkinsonian type tremor which is consistent with her medical history which I have reviewed. Differential diagnosis includes but is not limited to ACS, pneumothorax, pneumonia, polypharmacy, medication side effect, esophageal spasm, among others. Based on these concerns, I ordered cardiac workup, basic labs. ECG personally interpreted demonstrates bradycardia with rate 47, appears sinus however there is significant baseline artifact secondary to patient's baseline tremor, left axis deviation, no STEMI, normal GA and QTc. Patient received IV fluids for treatment. Labs personally reviewed demonstrate trace leukopenia, nonactionable at this time, no anemia, PT/INR normal, CMP with normal sodium, potassium, chloride, calcium, patient does have mild kidney dysfunction but this is similar to her baseline. She is tolerating oral intake. No findings of liver dysfunction, initial troponin undetectably low at less than 0.01, given duration of symptoms this is reassuring, however since her symptoms did intensify tonight, repeat troponin will be performed. Chest x-ray personally interpreted does not demonstrate any acute thoracic abnormality, see radiology read for final interpretation. Patient was placed in the ED observation at 0040 for continued cardiac monitoring, serial troponins to rule out evolving KS, and to preclude unnecessary admission. On continued reassessments, patient continued to be bradycardic with heart rate in the 40s though she had normal blood pressures. Patient was adamant that her blood pressures are too low despite multiple discussions with her that her blood pressure right now is normal. She states that because her heart rate is low her blood pressure must be low as well. I explained to her this is not necessarily the case, however we did discuss that her propranolol which is prescribed for tremors is likely significantly influencing her heart rate. She states Dr. Horton prescribed her propranolol and that it is more important to her that her tremors are controlled than that her HR is normal. She does state that after receiving Toradol she feels significantly improved and is resting comfortably. I reviewed previous neurology notes from Dr. Horton. Back in June patient was started on propranolol 40 mg twice daily as well as continued on amantadine, carbidopa/levodopa, and Ingrezza. At the time her propranolol was initiated, her heart rate at that visit had been in the 70s. Orthostatic vitals were performed on the patient. These are normal without significant drop in blood pressure or increase in heart rate. She tolerated these well. I placed a referral back to Dr. Horton describing my concerns with the propranolol though the patient is asymptomatic from her bradycardia and does not demonstrate significant orthostatic changes. Repeat troponin also undetectably low at less than 0.01. Repeat EKG was personally interpreted and demonstrates sinus bradycardia, rate 43, normal GA and QTc, borderline left axis deviation, no STEMI. No dynamic changes. At this time patient is appropriate for discharge. No changes have been made to her medications since she is adamant about not changing her propranolol. Referral to Dr. Horton has been placed. Patient was given instructions on symptomatic monitoring and management, follow up instructions, and return precautions for the emergency department. Patient indicated understanding and was discharged in stable condition.
[2023-09-13] MEDS: LACTATED RINGERS 1000ML 1,000 ML 999 ML IV (23:38)
[2023-09-13 23:41] LABS: Eosinophils # 0.2 K/mm3 (0.0-0.4); Eosinophils % 3.2 % (0.1-12.0); Hematocrit 41.1 % (37.0-47.0); Hemoglobin 12.9 g/dL (12.2-16.2); Lymphocytes # 1.3 K/mm3 (0.7-4.5); Lymphocytes % 27.3 % (10-50); Mean Corpuscular HGB Conc 31.5 g/dL (31.8-35.4); Mean Corpuscular Hemoglobin 29.5 pg (27.0-31.2); Mean Corpuscular Volume 93.8 fl (81-99); Mean Platelet Volume 8.1 fl (7.4-10.4); Monocytes # 0.3 K/mm3 (0.1-1.0); Monocytes % 6.8 % (1.7-9.3); Neutrophils # 2.8 K/mm3 (1.8-7.8); Neutrophils % 61.8 % (37.0-80.0); Platelet Count 194 K/mm3 (142-424); Red Blood Count 4.38 M/mm3 (4.20-5.40); Red Cell Distribution Width 13.7 % (11.5-17.5); White Blood Count 4.6 K/mm3 (4.8-10.8)
[2023-09-13 23:42] LABS: Chloride 105 mmol/L (98-107); Sodium 140 mmol/L (136-145)
[2023-09-13 23:43] LABS: Potassium 4.4 mmoL/L (3.5-5.1)
[2023-09-13 23:45] LABS: Alanine Aminotransferase 7 U/L (12-78); Albumin Level 4.2 g/dl (3.5-5.0); Alkaline Phosphatase 104 U/L (38-126); Aspartate Amino Transferase 23 U/L (14-36); Bilirubin,Total 0.3 mg/dl (0.2-1.3); Blood Urea Nitrogen 20 mg/dl (7-17); Creatinine Clearance Estimated 53 mL/min (50-200); Estimated Glomerular Filt Rate 45 ml/min (>60); GFR (African American) 54 ML/MIN (>60)
[2023-09-13 23:46] LABS: Albumin/Globulin Ratio 1.6 (1.1-1.8); Anion Gap 8.4 mEq/L (5-15); Calcium 9.4 mg/dl (8.4-10.2); Carbon Dioxide 31 mmol/L (22.0-30.0); Globulin 2.6 g/dL (1.3-3.2); Glucose 108 mg/dl (74-100); Total Protein,Serum 6.8 g/dl (6.3-8.2)
[2023-09-13 23:59] LABS: INR 1.06 (0.9-1.1); Prothrombin Time 11.8 seconds (10.1-12.5)
--- NOTE | 2023-09-14 | ECG_ITS ---
APPROVED REPORT Exam: Resting ECG HR:43 bpm ECG Measurements Heart Rate 43 AXES RI 156 P 49 QRSd 95 QRS -29 QT 489 T 52 QTc 435 Conclusion SINUS BRADYCARDIA ABNORMAL ECG No STEMI Electronically signed by : EDGAR PETERSON, 09/14/2023 06:45:06
[2023-09-14 00:04] LABS: Troponin I < 0.01 ng/ml (0.00-0.034)
[2023-09-14] MEDS: KETOROLAC 30MG/ML VIAL 15 MG IV (01:22)
[2023-09-14 01:46] VITALS: BP 111/63; BP 120/62; BP 124/61
[2023-09-14 02:07] LABS: Troponin I < 0.01 ng/ml (0.00-0.034)
--- NOTE | 2023-09-14 02:27 | PC.NURSE ---
Report called to Lore Quezada RN at [facility], EMS advised of transport back to facility
[2023-09-14 04:15] VITALS: BP 125/63; PULSE 51; RESP 16; TEMP 36.6; O2SAT 97
== END 2023-09-14 04:17 | disposition home or self-care (01) ==
PROVIDERS: Emergency Provider Emergency Medicine
DX: R07.9 Chest pain, unspecified (principal); R00.1 Bradycardia, unspecified; R11.0 Nausea; F17.210 Nicotine dependence, cigarettes, uncomplicated; I10 Essential (primary) hypertension; E78.5 Hyperlipidemia, unspecified
CPT/HCPCS: 71045; 80053; 84484; 85025; 85610; 93005; 96361; 96374; 99284; J1885; J7120

== ENCOUNTER 2023-10-28 09:06 | Outpatient (CLI) | payer MEDICARE, MEDICAID, SELFPAY ==
--- NOTE | 2023-10-28 09:09 | CA_ITS ---
FINAL REPORT TECHNIQUE: Real-time imaging was performed of the extracranial carotid arteries in transverse and longitudinal planes, with color duplex evaluation of blood flow velocity. Spectral analysis was performed. The cervical vertebral arteries were also examined. CLINICAL HISTORY: left carotid bruit. Patient had a tremor that caused artifact and motion during exam. Patient unable to lay down. She was done in an upright position with limited neck mobility. COMPARISON: None FINDINGS: NASCET technique is utilized for stenosis evaluation. Right carotid system (centimeters/second): CCA: 63 ICA: 164 ECA: 68 Vertebral artery: Not well-seen secondary to patient inability to turn her neck. ICA/CCA ratio: 2.6 Mild plaque is identified at the bifurcation. Left carotid system (centimeters/second): CCA: 61 ICA: 115 ECA: 83 Vertebral artery: Antegrade ICA/CCA ratio: 1.98 Mild plaque is identified at the bifurcation. IMPRESSION: Less than 50% right ICA stenosis. Less than 50% left ICA stenosis. Right vertebral artery not well-visualized secondary to patient's inability to turn her neck. Left vertebral artery reveals antegrade flow. Reviewed, Interpreted and Dictated by Mateus Ramos MD Transcribed by Christine Hendricks Authenticated and [facility]
== END 2023-10-28 23:59 | disposition home or self-care (01) ==
LOC: RT 09:07
PROVIDERS: PCP Family Medicine; Visit Provider Nurse Practitioner Family
DX: R09.89 Other specified symptoms and signs involving the circulatory and respiratory systems (principal); I65.29 Occlusion and stenosis of unspecified carotid artery
CPT/HCPCS: 93880

== ENCOUNTER 2023-11-27 07:43 | Day surgery (SDC) | payer MEDICARE, MEDICAID, SELFPAY ==
[2023-11-27] VITALS (8 sets, daily range): BP systolic 98–151; BP diastolic 54–72; PULSE 45–55; RESP 16–20; TEMP 36.9; O2SAT 90–100; BMI 25.2
--- NOTE | 2023-11-27 07:06 | IR_ITS ---
APPROVED REPORT Patient Location: Outpatient [facility] Operator: CLEO Cowart RT (R) PROCEDURES Left heart catheterization Left ventriculogram Selective coronary angiogram INDICATION Abnormal Myoview Informed consent was obtained prior to the procedure. COMPLICATIONS NONE Estimated Blood Loss: LESS THAN 10 ML TECHNIQUE One percent lidocaine used to anesthetize the right anterior aspect of the wrist. The right radial artery was accessed via the Seldinger technique. A 6 [place] sheath was placed in the right radial artery. 2.5 mg of Verapamil, 800 mcg of nitroglycerin, 1mg Lidocaine and 5000 U Heparin were given through the arterial sheath. The papa catheter was also used to perform left heart catheterization, left ventriculogram and selective coronary angiogram. At the end of the procedure the sheath was removed good hemostasis was achieved using Traclet band, patient was transferred to the postop holding area in stable condition. ANGIOGRAPHIC RESULTS The left main artery Normal The left anterior descending artery Has proximal 10% luminal regularities with a mid vessel myocardial bridge which compresses approximately 40% during systole. 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 Continue medical management 2. Further evaluation workup for kidney disease Electronically signed by : Easton Dietz MD 11/27/2023 10:16:58
[2023-11-27 08:24] LABS: Basophils # 0.1 K/mm3 (0-0.2); Basophils % 0.8 % (0.1-2.0); Eosinophils # 0.2 K/mm3 (0.0-0.4); Hematocrit 40.9 % (37.0-47.0); Hemoglobin 12.8 g/dL (12.2-16.2); Lymphocytes # 1.1 K/mm3 (0.7-4.5); Lymphocytes % 13.6 % (10-50); Mean Corpuscular HGB Conc 31.4 g/dL (31.8-35.4); Mean Corpuscular Hemoglobin 30.6 pg (27.0-31.2); Mean Corpuscular Volume 97.4 fl (81-99); Mean Platelet Volume 8.6 fl (7.4-10.4); Monocytes # 0.5 K/mm3 (0.1-1.0); Monocytes % 5.6 % (1.7-9.3); Neutrophils # 6.2 K/mm3 (1.8-7.8); Platelet Count 266 K/mm3 (142-424); Red Cell Distribution Width 14.1 % (11.5-17.5); White Blood Count 8.1 K/mm3 (4.8-10.8)
[2023-11-27 08:37] LABS: Anion Gap 13.5 mEq/L (5-15); Blood Urea Nitrogen 30 mg/dl (7-17); Calcium 10.5 mg/dl (8.4-10.2); Carbon Dioxide 24 mmol/L (22.0-30.0); Chloride 111 mmol/L (98-107); Creatinine Clearance Estimated 39 mL/min (50-200); Estimated Glomerular Filt Rate 32 ml/min (>60); GFR (African American) 39 ML/MIN (>60); Glucose 133 mg/dl (74-100); Potassium 3.5 mmoL/L (3.5-5.1); Sodium 145 mmol/L (136-145)
[2023-11-27] MEDS: VERAPAMIL 2.5MG/ML 2ML VIAL 2.5 MG IV (09:05)
[2023-11-27] MEDS: NITROGLYCERIN 800MCG/8ML SYR (CATH LAB) 800 MCG IA (09:05)
[2023-11-27] MEDS: LIDOCAINE 1% 10ML MDV 20 ML IJ (09:06)
[2023-11-27] MEDS: HEPARIN 1,000 UNITS/ML 10ML VIAL (CATH LAB) 10000 UNIT IV (09:06)
[2023-11-27] MEDS: diphenhydrAMINE 50MG/ML VIAL 50 MG IV (09:06)
[2023-11-27] MEDS: HEPARIN 1,000 UNITS/500ML NS (CATH LAB) 3000 UNIT IV (09:07)
[2023-11-27] MEDS: 0.9 % SODIUM CHLORIDE 500 ML 25 ML IV (09:07)
[2023-11-27] MEDS: MIDAZOLAM HCL 1MG/1ML 5ML VIAL 1 MG IV (09:43)
[2023-11-27] MEDS: FENTANYL 100MCG/2ML VIAL 50 MCG IV (09:44)
--- NOTE | 2023-11-27 10:03 | SUR.PHASEII ---
pt attempting to remove pulse ox and radial band. pt instructed on importance of pulse ox and radial band being in place
--- NOTE | 2023-11-27 10:39 | SUR.PHASEII ---
Patient, nurse aid, and nurse at [facility] instructed regarding to not use right arm for 2 days.
[2023-11-27] MEDS: IOPAMIDOL-370 (76%);100ML BOTTLE 40 ML IV (14:14)
== END 2023-11-27 10:59 | disposition home or self-care (01) ==
PROVIDERS: PCP Family Medicine; Visit Provider Internal Medicine
DX: R07.89 Other chest pain (principal); I20.9 Angina pectoris, unspecified; R93.1 Abnormal findings on diagnostic imaging of heart and coronary circulation; Z79.899 Other long term (current) drug therapy; Z82.49 Family history of ischemic heart disease and other diseases of the circulatory system; I12.9 Hypertensive chronic kidney disease with stage 1 through stage 4 chronic kidney disease, or unspecified chronic kidney disease; N18.9 Chronic kidney disease, unspecified; F17.210 Nicotine dependence, cigarettes, uncomplicated; R94.31 Abnormal electrocardiogram [ECG] [EKG]
CPT/HCPCS: 80048; 85025; 93458; 99152; C1725; C1769; J1200; J1644; J2250; J3010; Q9967

== ENCOUNTER 2023-12-25 14:24 | Inpatient (IN) | payer MEDICARE, MEDICAID, SELFPAY ==
[2023-12-25] VITALS (11 sets, daily range): BP systolic 90–127; BP diastolic 45–91; PULSE 65–73; RESP 16–18; TEMP 36.4–36.7; O2SAT 95–100; BMI 20.9
--- NOTE | 2023-12-25 14:30 | ED_ITS ---
Discharge Plan Disposition Patient Disposition: Admitted Condition: Fair Clinical Impressions Clinical Impression: Acute on chronic renal failure, Fistula of vagina, Leukocytosis, Elevated troponin, Elevated brain natriuretic peptide (BNP) level Discharge ED Provider: Faith Silva General Adult HPI <YOON Mallory - Last Filed: 12/25/23 17:48> General Chief complaint: Chest Pain Stated complaint: AMS Time Seen by Provider: 12/25/23 14:30 History of Present Illness HPI narrative: Patient presents from a local skilled nursing for multiple complaints. Patient states for 3 weeks that she has had a cough, chest pain, abdominal pain and that nobody is doing anything about it . She denies shortness of breath fever chills hemoptysis hematochezia melena vomiting or diarrhea. Patient does not know the last time she had a bowel movement or pass gas. Patient does have a significant past medical history of coronary artery disease angina chronic kidney disease Parkinsonian syndrome bradycardia hypertension hyperlipidemia tardive dyskinesia peripheral neuropathy. Related Data Home Medications ?Medication ?Instructions ?Recorded ?Confirmed atorvastatin 10 mg tablet (Lipitor) 10 mg PO DAILY 07/10/22 12/25/23 carbidopa 25 mg-levodopa 100 mg 1 tab PO TID 10/21/22 12/25/23 tablet (Sinemet) propranolol 20 mg tablet 20 mg PO BID 09/19/23 12/25/23 topiramate 50 mg tablet 50 mg PO BID 12/11/23 12/25/23 ranolazine 500 mg tablet,extended 500 mg PO BID 12/25/23 12/25/23 release,12 hr Previous Rx's ?Medication ?Instructions ?Recorded amantadine HCl 100 mg tablet 100 mg PO BID #60 tabs 04/01/23 isosorbide mononitrate 30 mg 30 mg PO DAILY #90 tabs 11/19/23 tablet,extended release 24 hr losartan 50 mg tablet 50 mg PO DAILY #90 tabs 11/19/23 Allergies Allergy/AdvReac Type Severity Reaction Status Date / Time cephalexin [From Keflex] Allergy Intermediate Verified 12/22/23 15:19 amlodipine [From Norvasc] AdvReac Mild swelling Verified 12/22/23 15:19 PFSH <YOON Mallory - Last Filed: 12/25/23 17:48> PFS Disclaimer: The information contained in this section may have been updated after the patient was seen, as this information can be updated by other users. Medical History Dilated aortic root CAD in [place] artery Angina pectoris Abnormal nuclear cardiac imaging test Carotid bruit Heart murmur Family history of ischemic heart disease Tobacco use disorder Abnormal electrocardiogram [ECG] [EKG] Edema of both lower extremities Chronic kidney disease Parkinsonian syndrome Most likely etiology EPS and baseline familial tremor. 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 TD has improved with Ingrezza. Tremor History of tremor for longer than 20 years, (father with similar movement disorder). 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 Her tremor at rest has improved, (likely improvement of EPS, parkinsonian syndrome). Surgical History History of cholecystectomy Family History Other Coronary artery disease Heart attack Social History Smoking Status: Current every day smoker alcohol intake: never substance use type: denies use current occupational status: disabled Travel in the last 8 weeks: None household members: other housing: skilled nursing marital status: single Other Medical History Have you received the Pneumonia Vaccine: No <YOON Mallory - Last Filed: 12/25/23 17:48> ROS Obtained: Yes Systems reviewed as appropriate & no additional complaints except as documented Physical Exam <YOON Mallory - Last Filed: 12/25/23 17:48> General General appearance: alert and in no apparent distress Respiratory Respiratory exam: Present normal lung sounds bilaterally Cardiovascular Cardiovascular exam: Present regular rate Neurological Exam Neurological exam: Present alert and oriented X3 Medical Decision Making <YOON Mallory - Last Filed: 12/25/23 17:48> Medical Records Medical records reviewed: Yes I reviewed the patient's medical records. Screening: Per USPSTF and CDC recommendations, given the prevalence of disease in our region, it is our hospital?s policy to screen for HIV and viral Hepatitis for all patients aged 18 and over and those with ongoing risk factors. [place] Inquiry Pt receiving controlled substance: No Vital Signs: 12/25/23 14:33 12/25/23 15:29 12/25/23 15:30 Temperature 97.5 F L Temperature Source Oral Pulse Rate 67 70 Pulse Rate [Left] 67 Respiratory Rate 16 Blood Pressure 107/67 L 115/64 Blood Pressure [Right Arm] 109/64 L Blood Pressure Mean Blood Pressure Mean [Right Arm] 79 Blood Pressure Source [Right Arm] Automatic Cuff Blood Pressure Position [Right Arm] Sitting 02 Sat by Pulse Oximetry 100 99 99 Oxygen Delivery Method Room Air 12/25/23 15:54 12/25/23 16:42 12/25/23 17:00 Temperature Temperature Source Pulse Rate 70 70 65 Pulse Rate [Left] Respiratory Rate Blood Pressure 94/65 L 121/70 97/60 L Blood Pressure [Right Arm] Blood Pressure Mean Blood Pressure Mean [Right Arm] Blood Pressure Source [Right Arm] Blood Pressure Position [Right Arm] 02 Sat by Pulse Oximetry 99 96 97 Oxygen Delivery Method 12/25/23 17:30 12/25/23 18:01 Temperature Temperature Source Pulse Rate Pulse Rate [Left] Respiratory Rate Blood Pressure 110/91 H 103/67 L Blood Pressure [Right Arm] Blood Pressure Mean 96 84 Blood Pressure Mean [Right Arm] Blood Pressure Source [Right Arm] Blood Pressure Position [Right Arm] 02 Sat by Pulse Oximetry Oxygen Delivery Method Lab Data Lab results reviewed: Yes I reviewed the patient's lab results. Lab Results 12/25/23 14:40: WBC 14.5 H, RBC 3.90 L, Hgb 12.1 L, Hct 36.3 L, MCV 93.0, MCH 31.0, MCHC 33.4, RDW 14.7, Plt Count 227, MPV 8.3, Neut % (Auto) 89.4 H, Lymph % (Auto) 5.4 L, [place] % (Auto) 4.6, Eos % (Auto) 0.4, Baso % (Auto) 0.3, Neut # (Auto) 13.0 H, Lymph # (Auto) 0.8, [place] # (Auto) 0.7, Eos # (Auto) 0.1, Baso # (Auto) 0.0, Total Counted 100, Neutrophils % (Manual) 86 H, Lymphocytes % (Manual) 11, Monocytes % (Manual) 3, Platelet Estimate Normal, RBC Morphology Normal, Sodium 144, Potassium 3.7, Chloride 116 H, Carbon Dioxide 21 L, Anion Gap 10.7, BUN 55 H, Creatinine 3.60 H, Estimated Creat Clear 16, Estimated GFR 13 L*, Est GFR ( Amer) 15 L*, Glucose 128 H, Calcium 9.7, Magnesium 1.8, Total Bilirubin 1.0, AST 32, ALT 17, Alkaline Phosphatase 90, Troponin I 0.07 H, NT-Pro-B Natriuret Pep 2990 H, Total Protein 6.7, Albumin 3.8, Globulin 2.9, Albumin/Globulin Ratio 1.3, Lipase 80, Procalcitonin 0.445, Hepatitis C Antibody Non reactive, HIV 1&2 Antibody Rapid Nonreactive 12/25/23 16:42: Urine Color Yellow, Urine Appearance Clear, Urine pH 5.0, Ur Specific [place] >= 1.030, Urine Protein 1+ A, Urine Glucose (UA) Negative, Urine Ketones Trace, Urine Blood Negative, Urine Nitrate Positive, Urine Bilirubin Negative, Urine Urobilinogen 1.0, Ur Leukocyte Esterase Negative, Urine RBC 3-5, Urine WBC 10-20, Ur Squamous Epith Cells 3-5, Urine Bacteria 4+, Hyaline Casts 3-5, Urine Mucus 2+, Ur Random Urea Nitrogn 774, Urine Creatinine 260, Urine Sodium 17.0 L 12/25/23 17:26: Troponin I 0.07 H 12/25/23 17:28: VBG Lactic Acid 1.6 12/25/23 18:00: Phosphorus 4.4, Magnesium 1.9 12/28/23 05:25 12/28/23 05:25 Orders (Tests/Meds): ED MEDICATIONS Generic Name Dose Route Start Last Admin Trade Name Freq PRN Reason Stop Dose Admin Acetaminophen 650 mg 12/25/23 17:43 12/26/23 21:00 Acetaminophen 325mg Tab PO 01/24/24 17:42 650 mg Q4HP PRN Administration Fever or Mild Pain (1-3) Amantadine HCl 100 mg 12/26/23 09:00 12/28/23 08:22 Amantadine 100mg Capsule PO 01/25/24 08:59 100 mg BID BENEDICTO Administration Atorvastatin Calcium 10 mg 12/26/23 21:00 12/27/23 21:17 Atorvastatin 10mg Tablet PO 01/25/24 20:59 10 mg HS BENEDICTO Administration Carbidopa/Levodopa 1 each 12/25/23 21:00 12/28/23 13:37 Carbidopa/Levodopa 25/100mg Tablet PO 01/24/24 20:59 1 each TID BENEDICTO Administration Enoxaparin Sodium 70 mg 12/27/23 14:15 12/27/23 15:01 Enoxaparin 80mg/0.8ml Syringe SQ 01/26/24 14:14 70 mg Q24H BENEDICTO Administration Piperacillin Sod/Tazobactam 50 mls @ 100 mls/hr 12/26/23 09:00 12/28/23 08:22 Sod 2.25 gm/ Sodium Chloride IV 01/05/24 08:59 100 mls/hr Q6H BENEDICTO Administration Sodium Chloride 1,000 mls @ 125 mls/hr 12/28/23 08:30 12/28/23 08:39 Sod Chlor 0.45% 1000ml Bag IV 01/27/24 08:29 125 mls/hr .Q8H BENEDICTO Administration Isosorbide Mononitrate 30 mg 12/26/23 09:00 12/28/23 08:22 Isosorbide [place] 30mg Tab.Er.24h PO 01/25/24 08:59 30 mg DAILY BENEDICTO Administration Mineral Oil 133 ml 12/26/23 07:22 12/26/23 16:50 Mineral Oil Enema 133ml RC 01/25/24 07:21 133 ml NEEDED PRN Administration Constipation Ondansetron HCl 4 mg 12/25/23 17:43 12/26/23 22:05 Ondansetron 4mg/2ml Vial IV 01/24/24 17:42 4 mg Q8HP PRN Administration Nausea Polyethylene Glycol 17 gm 12/26/23 09:00 12/28/23 14:29 Polyethylene Glycol 3350 17 Gm Packet PO 01/25/24 08:59 Not Given DAILY BENEDICTO Propranolol HCl 20 mg 12/25/23 21:00 12/28/23 08:22 Propranolol 20mg Tab PO 01/24/24 20:59 20 mg BID BENEDICTO Administration Ranolazine 1,000 mg 12/26/23 21:00 12/28/23 08:21 Ranolazine 500mg Er Tablet PO 01/25/24 20:59 1,000 mg BID BENEDICTO Administration Sodium Chloride 10 ml 12/25/23 20:24 Sodium Chloride 0.9% 10ml Flush Syringe IV 01/24/24 20:23 NEEDED PRN Maintain IV Site Sodium Chloride 10 ml 12/28/23 08:16 Sodium Chloride 0.9% 10ml Flush Syringe IV 01/27/24 08:15 NEEDED PRN Maintain IV Site Topiramate 50 mg 12/26/23 09:00 12/28/23 08:21 Topiramate 25mg Tablet PO 01/25/24 08:59 50 mg BID BENEDICTO Administration Discontinued Medications Generic Name Dose Route Start Last Admin Trade Name Freq PRN Reason Stop Dose Admin Belladonna Alkaloids 60 ml 12/25/23 14:32 12/25/23 14:57 Belladonna Alkaloids 60 Ml Ml PO 12/25/23 14:33 60 ml ONCE ONE Administration Heparin Sodium (Porcine) 5,000 unit 12/25/23 17:45 12/26/23 01:23 Heparin Sodium 5,000 Unit/Ml Vial SQ 01/24/24 17:44 5,000 unit Q8H BENEDICTO Administration Heparin Sodium (Porcine) 4,000 unit 12/26/23 09:00 12/26/23 17:10 Heparin Sodium 5,000 Unit/Ml Vial IV 12/26/23 09:01 Not Given ONCE ONE Heparin Sodium (Porcine) 5,000 unit 12/26/23 21:00 12/27/23 13:14 Heparin Sodium 5,000 Unit/Ml Vial SQ 01/25/24 20:59 5,000 unit TID BENEDICTO Administration Sodium Chloride 1,000 mls @ 999 mls/hr 12/25/23 15:05 12/25/23 15:18 Sod Chlor 0.9% 1000ml Bag IV 12/25/23 16:05 999 mls/hr .Q1H1M ONE Administration Piperacillin Sod/Tazobactam 50 mls @ 100 mls/hr 12/25/23 16:50 12/25/23 17:09 Sod 3.375 gm/ Sodium Chloride IV 12/25/23 17:19 100 mls/hr ONCE ONE Administration Lactated Ringer's 1,000 mls @ 100 mls/hr 12/25/23 17:45 12/25/23 20:30 Lactated Ringer's 1000 Ml Bag IV 01/24/24 17:44 Not Given .Q10H BENEDICTO Sodium Chloride 1,000 mls @ 75 mls/hr 12/25/23 20:30 12/25/23 20:55 Sod Chlor 0.9% 1000ml Bag IV 01/24/24 20:29 75 mls/hr .[id number] BENEDICTO Administration Dextrose 1,000 mls @ 150 mls/hr 12/26/23 07:45 12/27/23 17:32 Dext 5% In Water 1000mls IV 01/25/24 07:44 150 mls/hr .Q6H40M BENEDICTO Administration Heparin Sodium/Dextrose 500 mls @ 16 mls/hr 12/26/23 09:00 12/27/23 01:22 Heparin 25,000 Units In D5w 500ml Premix IV 01/25/24 08:59 Not Given .Q25H BENEDICTO 800 UNITS/HR Potassium Chloride/Water 100 mls @ 50 mls/hr 12/28/23 08:15 12/28/23 12:28 Potassium Chloride 20meq/100ml Ivpb IV 12/28/23 12:14 50 mls/hr Q2H BENEDICTO Administration Ketorolac Tromethamine 15 mg 12/25/23 14:32 12/25/23 14:57 Ketorolac 30mg/Ml Vial IV 12/25/23 14:33 15 mg ONCE ONE Administration Mineral Oil 133 ml 12/26/23 07:22 12/26/23 09:35 Mineral Oil Enema 133ml RC 12/26/23 07:23 133 ml ONCE ONE Administration Miscellaneous 1 each 12/26/23 08:45 12/27/23 01:22 Heparin Drip Consult NOTAPPLIC 01/25/24 08:44 Not Given CONSULT PHARMACY BENEDICTO Non-Formulary Medication 100 mg 12/25/23 21:00 12/25/23 20:57 Amantadine Hcl PO 01/24/24 20:59 100 mg BID BENEDICTO Administration Non-Formulary Medication 50 mg 12/25/23 21:00 12/25/23 20:57 Topiramate PO 01/24/24 20:59 50 mg BID BENEDICTO Administration Potassium Chloride 40 meq 12/27/23 07:32 12/27/23 08:10 Potassium Chloride 20meq Tab PO 12/27/23 07:33 40 meq ONCE ONE Administration Ranolazine 500 mg 12/25/23 21:00 12/26/23 09:37 Ranolazine 500mg Er Tablet PO 01/24/24 20:59 500 mg BID BENEDICTO Administration ORDERS Category Date Time Status CT abdomen pelvis wo con Stat Cat Scan 12/25/23 14:[address] chest wo con Stat Cat Scan 12/25/23 15:14 Completed BNP [NT Pro Brain Natriuretic Pep.] Stat Lab 12/25/23 14:40 Completed CBC w/Auto Diff [Complete Blood Count Auto Diff] Stat Lab 12/25/23 14:40 Completed CMP [Comprehensive Metabolic Panel] Stat Lab 12/25/23 14:40 Completed Complete Blood Count Auto Diff AMLAB Lab 12/26/23 05:59 Completed Complete Blood Count Auto Diff AMLAB Lab 12/27/23 06:11 Completed Complete Blood Count Auto Diff AMLAB Lab 12/28/23 05:25 Completed Complete Blood Count Auto Diff AMLAB Lab 12/29/23 06:00 Ordered Complete Blood Count Auto Diff AMLAB Lab 12/30/23 06:00 Ordered Comprehensive Metabolic Panel AMLAB Lab 12/26/23 05:59 Completed Comprehensive Metabolic Panel AMLAB Lab 12/27/23 06:11 Completed Comprehensive Metabolic Panel AMLAB Lab 12/28/23 05:25 Completed Comprehensive Metabolic Panel AMLAB Lab 12/29/23 06:00 Ordered Comprehensive Metabolic Panel AMLAB Lab 12/30/23 06:00 Ordered HIV (1&2) Antibody Rapid Stat Lab 12/25/23 14:40 Completed Hep C Ab with Reflex to RNA Stat Lab 12/25/23 14:40 Completed Lactate Venous Stat Lab 12/25/23 17:28 Completed Lipase Stat Lab 12/25/23 14:40 Completed Magnesium AMLAB Lab 12/26/23 05:59 Completed Magnesium Routine Lab 12/25/23 18:00 Completed Magnesium Stat Lab 12/25/23 14:40 Completed Phosphorous AMLAB Lab 12/26/23 05:59 Completed Phosphorous Routine Lab 12/25/23 18:00 Completed Procalcitonin Stat Lab 12/25/23 14:40 Completed Trop I [Troponin I] Stat Lab 12/25/23 14:40 Completed Troponin I Q3H Lab 12/25/23 17:26 Completed Troponin I Q3H Lab 12/25/23 21:00 Completed UA [Urinalysis and Microscopic] Stat Lab 12/25/23 16:42 Completed Blood Culture Stat Micro 12/25/23 15:20 Results Urine Culture Stat Micro 12/25/23 16:42 Completed HEART Score History (anamnesis): Slightly suspicious ECG: Non-specific disturbance Age: >65 years Risk factors: Atherosclerosis history Troponin: 1-3x normal limit HEART Score: 6 Medical Decision Narrative: In summary patient is a 68-year-old female who presents to the emergency department for evaluation of chest and abdominal pain and cough. Patient is hemodynamically stable with a blood pressure of 109/64 heart rate 67 respiratory rate 16 satting at 100% on room air upon arrival, afebrile at 97.5. Physical exam is remarkable for cachectic appearing 68-year-old female that has extraordinarily dry oral mucosa with debris caked in her tongue, normal breath sounds normal heart sounds normal bowel sounds but tender to palpation in the epigastrium without rebound or guarding or rigidity.. Differential diagnosis includes ACS versus pneumonia versus PE etc. Initial workup will be conducted with hematologic labs urinalysis CT scan PE protocol of the chest CT scan abdomen pelvis with contrast. Initial interventions include Tylenol Toradol. Initial workup reviewed by me shows that she has acute on chronic renal failure, a detectable troponin at 0.07 a white count of 14.5 with an absolute neutrophil count of 13.0 and NT proBNP of 2990 urinalysis shows 1+ protein trace ketones negative blood positive nitrates negative leukocyte Estrace on dipstick and microscopic exam showed 3-5 reds 10-20 white cells 3-5 epithelial cells 4+ bacteria on her urinary catheter and my informal interpretation of her CT scan abdomen pelvis shows proctitis without evidence of free air. As we could not get a urine specimen I had the nurses anchor Fletcher catheter. When they went to prepare they noticed stool coming out of her vagina. They were however able to anchor the Fletcher. Given this I had an interactive discussion about patient management with the transfer center at the [facility] regarding a colovaginal fistula. They recommended that patient be followed up as an outpatient with colorectal surgery. Given that I had interactive discussion with hospital medicine about patient management and she has been admitted for further evaluation and care <Carlos Alberto Salamanca MD - Last Filed: 12/28/23 15:12> Vital Signs: 12/25/23 14:33 12/25/23 15:29 12/25/23 15:30 Temperature 97.5 F L Temperature Source Oral Pulse Rate 67 70 Pulse Rate [Left] 67 Respiratory Rate 16 Blood Pressure 107/67 L 115/64 Blood Pressure [Right Arm] 109/64 L Blood Pressure Mean Blood Pressure Mean [Right Arm] 79 Blood Pressure Source [Right Arm] Automatic Cuff Blood Pressure Position [Right Arm] Sitting 02 Sat by Pulse Oximetry 100 99 99 Oxygen Delivery Method Room Air 12/25/23 15:54 12/25/23 16:42 12/25/23 17:00 Temperature Temperature Source Pulse Rate 70 70 65 Pulse Rate [Left] Respiratory Rate Blood Pressure 94/65 L 121/70 97/60 L Blood Pressure [Right Arm] Blood Pressure Mean Blood Pressure Mean [Right Arm] Blood Pressure Source [Right Arm] Blood Pressure Position [Right Arm] 02 Sat by Pulse Oximetry 99 96 97 Oxygen Delivery Method 12/25/23 17:30 12/25/23 18:01 Temperature Temperature Source Pulse Rate Pulse Rate [Left] Respiratory Rate Blood Pressure 110/91 H 103/67 L Blood Pressure [Right Arm] Blood Pressure Mean 96 84 Blood Pressure Mean [Right Arm] Blood Pressure Source [Right Arm] Blood Pressure Position [Right Arm] 02 Sat by Pulse Oximetry Oxygen Delivery Method Lab Data Lab Results 12/25/23 14:40: WBC 14.5 H, RBC 3.90 L, Hgb 12.1 L, Hct 36.3 L, MCV 93.0, MCH 31.0, MCHC 33.4, RDW 14.7, Plt Count 227, MPV 8.3, Neut % (Auto) 89.4 H, Lymph % (Auto) 5.4 L, [place] % (Auto) 4.6, Eos % (Auto) 0.4, Baso % (Auto) 0.3, Neut # (Auto) 13.0 H, Lymph # (Auto) 0.8, [place] # (Auto) 0.7, Eos # (Auto) 0.1, Baso # (Auto) 0.0, Total Counted 100, Neutrophils % (Manual) 86 H, Lymphocytes % (Manual) 11, Monocytes % (Manual) 3, Platelet Estimate Normal, RBC Morphology Normal, Sodium 144, Potassium 3.7, Chloride 116 H, Carbon Dioxide 21 L, Anion Gap 10.7, BUN 55 H, Creatinine 3.60 H, Estimated Creat Clear 16, Estimated GFR 13 L*, Est GFR ( Amer) 15 L*, Glucose 128 H, Calcium 9.7, Magnesium 1.8, Total Bilirubin 1.0, AST 32, ALT 17, Alkaline Phosphatase 90, Troponin I 0.07 H, NT-Pro-B Natriuret Pep 2990 H, Total Protein 6.7, Albumin 3.8, Globulin 2.9, Albumin/Globulin Ratio 1.3, Lipase 80, Procalcitonin 0.445, Hepatitis C Antibody Non reactive, HIV 1&2 Antibody Rapid Nonreactive 12/25/23 16:42: Urine Color Yellow, Urine Appearance Clear, Urine pH 5.0, Ur Specific [place] >= 1.030, Urine Protein 1+ A, Urine Glucose (UA) Negative, Urine Ketones Trace, Urine Blood Negative, Urine Nitrate Positive, Urine Bilirubin Negative, Urine Urobilinogen 1.0, Ur Leukocyte Esterase Negative, Urine RBC 3-5, Urine WBC 10-20, Ur Squamous Epith Cells 3-5, Urine Bacteria 4+, Hyaline Casts 3-5, Urine Mucus 2+, Ur Random Urea Nitrogn 774, Urine Creatinine 260, Urine Sodium 17.0 L 12/25/23 17:26: Troponin I 0.07 H 12/25/23 17:28: VBG Lactic Acid 1.6 12/25/23 18:00: Phosphorus 4.4, Magnesium 1.9 Orders (Tests/Meds): ED MEDICATIONS Generic Name Dose Route Start Last Admin Trade Name Freq PRN Reason Stop Dose Admin Acetaminophen 650 mg 12/25/23 17:43 12/26/23 21:00 Acetaminophen 325mg Tab PO 01/24/24 17:42 650 mg Q4HP PRN Administration Fever or Mild Pain (1-3) Amantadine HCl 100 mg 12/26/23 09:00 12/28/23 08:22 Amantadine 100mg Capsule PO 01/25/24 08:59 100 mg BID BENEDICTO Administration Atorvastatin Calcium 10 mg 12/26/23 21:00 12/27/23 21:17 Atorvastatin 10mg Tablet PO 01/25/24 20:59 10 mg HS BENEDICTO Administration Carbidopa/Levodopa 1 each 12/25/23 21:00 12/28/23 13:37 Carbidopa/Levodopa 25/100mg Tablet PO 01/24/24 20:59 1 each TID BENEDICTO Administration Enoxaparin Sodium 70 mg 12/27/23 14:15 12/27/23 15:01 Enoxaparin 80mg/0.8ml Syringe SQ 01/26/24 14:14 70 mg Q24H BENEDICTO Administration Piperacillin Sod/Tazobactam 50 mls @ 100 mls/hr 12/26/23 09:00 12/28/23 08:22 Sod 2.25 gm/ Sodium Chloride IV 01/05/24 08:59 100 mls/hr Q6H BENEDICTO Administration Sodium Chloride 1,000 mls @ 125 mls/hr 12/28/23 08:30 12/28/23 08:39 Sod Chlor 0.45% 1000ml Bag IV 01/27/24 08:29 125 mls/hr .Q8H BENEDICTO Administration Isosorbide Mononitrate 30 mg 12/26/23 09:00 12/28/23 08:22 Isosorbide [place] 30mg Tab.Er.24h PO 01/25/24 08:59 30 mg DAILY BENEDICTO Administration Mineral Oil 133 ml 12/26/23 07:22 12/26/23 16:50 Mineral Oil Enema 133ml RC 01/25/24 07:21 133 ml NEEDED PRN Administration Constipation Ondansetron HCl 4 mg 12/25/23 17:43 12/26/23 22:05 Ondansetron 4mg/2ml Vial IV 01/24/24 17:42 4 mg Q8HP PRN Administration Nausea Polyethylene Glycol 17 gm 12/26/23 09:00 12/28/23 14:29 Polyethylene Glycol 3350 17 Gm Packet PO 01/25/24 08:59 Not Given DAILY BENEDICTO Propranolol HCl 20 mg 12/25/23 21:00 12/28/23 08:22 Propranolol 20mg Tab PO 01/24/24 20:59 20 mg BID BENEDICTO Administration Ranolazine 1,000 mg 12/26/23 21:00 12/28/23 08:21 Ranolazine 500mg Er Tablet PO 01/25/24 20:59 1,000 mg BID BENEDICTO Administration Sodium Chloride 10 ml 12/25/23 20:24 Sodium Chloride 0.9% 10ml Flush Syringe IV 01/24/24 20:23 NEEDED PRN Maintain IV Site Sodium Chloride 10 ml 12/28/23 08:16 Sodium Chloride 0.9% 10ml Flush Syringe IV 01/27/24 08:15 NEEDED PRN Maintain IV Site Topiramate 50 mg 12/26/23 09:00 12/28/23 08:21 Topiramate 25mg Tablet PO 01/25/24 08:59 50 mg BID BENEDICTO Administration Discontinued Medications Generic Name Dose Route Start Last Admin Trade Name Freq PRN Reason Stop Dose Admin Belladonna Alkaloids 60 ml 12/25/23 14:32 12/25/23 14:57 Belladonna Alkaloids 60 Ml Ml PO 12/25/23 14:33 60 ml ONCE ONE Administration Heparin Sodium (Porcine) 5,000 unit 12/25/23 17:45 12/26/23 01:23 Heparin Sodium 5,000 Unit/Ml Vial SQ 01/24/24 17:44 5,000 unit Q8H BENEDICTO Administration Heparin Sodium (Porcine) 4,000 unit 12/26/23 09:00 12/26/23 17:10 Heparin Sodium 5,000 Unit/Ml Vial IV 12/26/23 09:01 Not Given ONCE ONE Heparin Sodium (Porcine) 5,000 unit 12/26/23 21:00 12/27/23 13:14 Heparin Sodium 5,000 Unit/Ml Vial SQ 01/25/24 20:59 5,000 unit TID BENEDICTO Administration Sodium Chloride 1,000 mls @ 999 mls/hr 12/25/23 15:05 12/25/23 15:18 Sod Chlor 0.9% 1000ml Bag IV 12/25/23 16:05 999 mls/hr .Q1H1M ONE Administration Piperacillin Sod/Tazobactam 50 mls @ 100 mls/hr 12/25/23 16:50 12/25/23 17:09 Sod 3.375 gm/ Sodium Chloride IV 12/25/23 17:19 100 mls/hr ONCE ONE Administration Lactated Ringer's 1,000 mls @ 100 mls/hr 12/25/23 17:45 12/25/23 20:30 Lactated Ringer's 1000 Ml Bag IV 01/24/24 17:44 Not Given .Q10H BENEDICTO Sodium Chloride 1,000 mls @ 75 mls/hr 12/25/23 20:30 12/25/23 20:55 Sod Chlor 0.9% 1000ml Bag IV 01/24/24 20:29 75 mls/hr .[id number] BENEDICTO Administration Dextrose 1,000 mls @ 150 mls/hr 12/26/23 07:45 10/19/24 17:32 Dext 5% In Water 1000mls IV 01/25/24 07:44 150 mls/hr .Q6H40M BENEDICTO Administration Heparin Sodium/Dextrose 500 mls @ 16 mls/hr 12/26/23 09:00 12/27/23 01:22 Heparin 25,000 Units In D5w 500ml Premix IV 01/25/24 08:59 Not Given .Q25H BENEDICTO 800 UNITS/HR Potassium Chloride/Water 100 mls @ 50 mls/hr 12/28/23 08:15 12/28/23 12:28 Potassium Chloride 20meq/100ml Ivpb IV 12/28/23 12:14 50 mls/hr Q2H BENEDICTO Administration Ketorolac Tromethamine 15 mg 12/25/23 14:32 12/25/23 14:57 Ketorolac 30mg/Ml Vial IV 12/25/23 14:33 15 mg ONCE ONE Administration Mineral Oil 133 ml 12/26/23 07:22 12/26/23 09:35 Mineral Oil Enema 133ml RC 12/26/23 07:23 133 ml ONCE ONE Administration Miscellaneous 1 each 12/26/23 08:45 12/27/23 01:22 Heparin Drip Consult NOTAPPLIC 01/25/24 08:44 Not Given CONSULT PHARMACY BENEDICTO Non-Formulary Medication 100 mg 12/25/23 21:00 12/25/23 20:57 Amantadine Hcl PO 01/24/24 20:59 100 mg BID BENEDICTO Administration Non-Formulary Medication 50 mg 12/25/23 21:00 12/25/23 20:57 Topiramate PO 01/24/24 20:59 50 mg BID BENEDICTO Administration Potassium Chloride 40 meq 12/27/23 07:32 12/27/23 08:10 Potassium Chloride 20meq Tab PO 12/27/23 07:33 40 meq ONCE ONE Administration Ranolazine 500 mg 12/25/23 21:00 12/26/23 09:37 Ranolazine 500mg Er Tablet PO 01/24/24 20:59 500 mg BID BENEDICTO Administration ORDERS Category Date Time Status CT abdomen pelvis wo con Stat Cat Scan 12/25/23 14:[address] chest wo con Stat Cat Scan 12/25/23 15:14 Completed BNP [NT Pro Brain Natriuretic Pep.] Stat Lab 12/25/23 14:40 Completed CBC w/Auto Diff [Complete Blood Count Auto Diff] Stat Lab 12/25/23 14:40 Completed CMP [Comprehensive Metabolic Panel] Stat Lab 12/25/23 14:40 Completed Complete Blood Count Auto Diff AMLAB Lab 12/26/23 05:59 Completed Complete Blood Count Auto Diff AMLAB Lab 12/27/23 06:11 Completed Complete Blood Count Auto Diff AMLAB Lab 12/28/23 05:25 Completed Complete Blood Count Auto Diff AMLAB Lab 12/29/23 06:00 Ordered Complete Blood Count Auto Diff AMLAB Lab 12/30/23 06:00 Ordered Comprehensive Metabolic Panel AMLAB Lab 12/26/23 05:59 Completed Comprehensive Metabolic Panel AMLAB Lab 12/27/23 06:11 Completed Comprehensive Metabolic Panel AMLAB Lab 12/28/23 05:25 Completed Comprehensive Metabolic Panel AMLAB Lab 12/29/23 06:00 Ordered Comprehensive Metabolic Panel AMLAB Lab 12/30/23 06:00 Ordered HIV (1&2) Antibody Rapid Stat Lab 12/25/23 14:40 Completed Hep C Ab with Reflex to RNA Stat Lab 12/25/23 14:40 Completed Lactate Venous Stat Lab 12/25/23 17:28 Completed Lipase Stat Lab 12/25/23 14:40 Completed Magnesium AMLAB Lab 12/26/23 05:59 Completed Magnesium Routine Lab 12/25/23 18:00 Completed Magnesium Stat Lab 12/25/23 14:40 Completed Phosphorous AMLAB Lab 12/26/23 05:59 Completed Phosphorous Routine Lab 12/25/23 18:00 Completed Procalcitonin Stat Lab 12/25/23 14:40 Completed Trop I [Troponin I] Stat Lab 12/25/23 14:40 Completed Troponin I Q3H Lab 12/25/23 17:26 Completed Troponin I Q3H Lab 12/25/23 21:00 Completed UA [Urinalysis and Microscopic] Stat Lab 12/25/23 16:42 Completed Blood Culture Stat Micro 12/25/23 15:20 Results Urine Culture Stat Micro 12/25/23 16:42 Completed HEART Score HEART Score: 6 Medical Decision Narrative: In summary patient is a 68-year-old female who presents to the emergency department for evaluation of chest and abdominal pain and cough. Patient is hemodynamically stable with a blood pressure of 109/64 heart rate 67 respiratory rate 16 satting at 100% on room air upon arrival, afebrile at 97.5. Physical exam is remarkable for cachectic appearing 68-year-old female that has extraordinarily dry oral mucosa with debris caked in her tongue, normal breath sounds normal heart sounds normal bowel sounds but tender to palpation in the epigastrium without rebound or guarding or rigidity.. Differential diagnosis includes ACS versus pneumonia versus PE etc. Initial workup will be conducted with hematologic labs urinalysis CT scan PE protocol of the chest CT scan abdomen pelvis with contrast. Initial interventions include Tylenol Toradol. Initial workup reviewed by me shows that she has acute on chronic renal failure, a detectable troponin at 0.07 a white count of 14.5 with an absolute neutrophil count of 13.0 and NT proBNP of 2990 urinalysis shows 1+ protein trace ketones negative blood positive nitrates negative leukocyte Estrace on dipstick and microscopic exam showed 3-5 reds 10-20 white cells 3-5 epithelial cells 4+ bacteria on her urinary catheter and my informal interpretation of her CT scan abdomen pelvis shows proctitis without evidence of free air. As we could not get a urine specimen I had the nurses anchor Fletcher catheter. When they went to prepare they noticed stool coming out of her vagina. They were however able to anchor the Fletcher. Given this I had an interactive discussion about patient management with the transfer center at the [facility] regarding a colovaginal fistula. They recommended that patient be followed up as an outpatient with colorectal surgery. Given that I had interactive discussion with hospital medicine about patient management and she has been admitted for further evaluation and care I was consulted by the JOHNATHON, and we discussed the complexity of the problems being addressed. I approved the treatment and management plan for this patient's care in the Emergency Department, thus performing a substantive portion of the medical decision making. Carlos Alberto Salamanca MD Critical Care <YOON Mallory - Last Filed: 12/25/23 17:48> Critical Care Time Critical Care Time: No
--- NOTE | 2023-12-25 14:32 | CT_ITS ---
FINAL REPORT TECHNIQUE: Axial images through the abdomen and pelvis were performed without contrast. This study was performed with techniques to keep radiation doses as low as reasonably achievable, (ALARA). Individualized dose reduction techniques using automated exposure control or adjustment of mA and/or kV according to the patient's size were employed. CLINICAL HISTORY: Chest and abdominal pain FINDINGS: Abdomen: The liver parenchyma is homogeneous. The gallbladder is absent. The spleen, pancreas, and kidneys are unremarkable. There is mild bilateral adrenal hyperplasia. Pelvis: The urinary bladder is unremarkable. The rectum is distended measuring up to 9.3 cm in transverse dimension. There is mild surrounding inflammation consistent with proctitis. There is a cyst in the left ovary measuring up to 2.9 cm in greatest dimension. The appendix is not visualized. There are hypertrophic changes of degenerative disc disease at L4-5 and L5-S1. IMPRESSION: Distended rectum with mild proctitis. Left ovarian cyst, may represent epithelial cyst or cystadenoma. Gynecologic evaluation may be of value. Reviewed, Interpreted and Dictated by Mateus Ramos MD Transcribed by Taylor Irby Authenticated and [facility]
[2023-12-25 14:51] LABS: Basophils % 0.3 % (0.1-2.0); Eosinophils # 0.1 K/mm3 (0.0-0.4); Eosinophils % 0.4 % (0.1-12.0); Hematocrit 36.3 % (37.0-47.0); Hemoglobin 12.1 g/dL (12.2-16.2); Lymphocytes # 0.8 K/mm3 (0.7-4.5); Lymphocytes % 5.4 % (10-50); Mean Corpuscular HGB Conc 33.4 g/dL (31.8-35.4); Mean Platelet Volume 8.3 fl (7.4-10.4); Monocytes # 0.7 K/mm3 (0.1-1.0); Monocytes % 4.6 % (1.7-9.3); Neutrophils % 89.4 % (37.0-80.0); Platelet Count 227 K/mm3 (142-424); Red Cell Distribution Width 14.7 % (11.5-17.5); White Blood Count 14.5 K/mm3 (4.8-10.8)
[2023-12-25 14:53] LABS: MANUAL DIFFERENTIAL MANUAL DIFFERENTIAL (MANUAL DIFF)
[2023-12-25] MEDS: KETOROLAC 30MG/ML VIAL 15 MG IV (14:57)
[2023-12-25] MEDS: BELLADONNA ALKALOIDS 60 ML ML PO (14:57)
[2023-12-25 14:58] LABS: Alanine Aminotransferase 17 U/L (12-78); Albumin Level 3.8 g/dl (3.5-5.0); Albumin/Globulin Ratio 1.3 (1.1-1.8); Alkaline Phosphatase 90 U/L (38-126); Anion Gap 10.7 mEq/L (5-15); Aspartate Amino Transferase 32 U/L (14-36); Blood Urea Nitrogen 55 mg/dl (7-17); Calcium 9.7 mg/dl (8.4-10.2); Carbon Dioxide 21 mmol/L (22.0-30.0); Chloride 116 mmol/L (98-107); Creatinine Clearance Estimated 16 mL/min (50-200); Estimated Glomerular Filt Rate 13 ml/min (>60); GFR (African American) 15 ML/MIN (>60); Globulin 2.9 g/dL (1.3-3.2); Glucose 128 mg/dl (74-100); Lipase 80 U/L (23-300); Magnesium 1.8 mg/dl (1.6-2.3); Potassium 3.7 mmoL/L (3.5-5.1); Sodium 144 mmol/L (136-145); Total Protein,Serum 6.7 g/dl (6.3-8.2)
[2023-12-25 15:10] LABS: NT Pro Brain Natriuretic Pep. 2990 pg/mL (0-125); Troponin I 0.07 ng/ml (0.00-0.034)
--- NOTE | 2023-12-25 15:14 | CT_ITS ---
FINAL REPORT TECHNIQUE: Axial images were obtained through the chest without contrast. Sagittal and coronal reformatted images were obtained and reviewed. This study was performed with techniques to keep radiation doses as low as reasonably achievable (ALARA). Individualized dose reduction techniques using automated exposure control or adjustment of mA and/or kV according to the patient's size were employed. CLINICAL HISTORY: Chest and abdominal pain FINDINGS: The ascending aorta measures 3.8 cm in diameter. There is no evidence of mediastinal mass or adenopathy. The lungs are clear. The heart size is normal. There is no pericardial or pleural effusion. No suspicious infiltrate or nodule identified. There is moderate anterior osteophyte formation in the midthoracic spine. IMPRESSION: No acute process. Reviewed, Interpreted and Dictated by Mateus Ramos MD Transcribed by Taylor Irby Authenticated and [facility]
[2023-12-25] MEDS: 0.9 % SODIUM CHLORIDE 1000ML 1,000 ML 999 ML IV (15:18)
--- NOTE | 2023-12-25 15:18 | PC.NURSE ---
patient gone to CT at this time.
--- NOTE | 2023-12-25 15:29 | PC.NURSE ---
Patient is back in the room from CT.
[2023-12-25 15:31] LABS: Lymphocytes % 11 % (10-50); Monocytes % 3 % (2-9); Neutrophils % 86 % (42-76); Total Cells Counted 100
[2023-12-25 15:32] LABS: Platelet Estimate Normal; RBC Morphology Normal
--- NOTE | 2023-12-25 15:47 | ECG_ITS ---
APPROVED REPORT Exam: Resting ECG HR:65 bpm ECG Measurements Heart Rate [address] 185 P 71 QRSd 109 QRS -21 QT 444 T 98 QTc 456 Conclusion SINUS RHYTHM BORDERLINE LEFT AXIS DEVIATION [QRS AXIS < -20] ST DEVIATION AND MODERATE T-WAVE ABNORMALITY, CONSIDER ANTEROLATERAL ISCHEMIA [-0.1+ mV T-WAVE IN V3-V6] ABNORMAL ECG UNCONFIRMED REPORT Electronically signed by : Alex Silva, 12/25/2023 23:03:26
[2023-12-25 16:10] LABS: HIV (1&2) Antibody Rapid NONREACTIVE (NONREACTIVE)
--- NOTE | 2023-12-25 16:43 | PC.NURSE ---
calling [facility] at this time.
--- NOTE | 2023-12-25 16:44 | PC.NURSE ---
stool noted vaginally with md eliane notified. alexandre placed
[2023-12-25 16:47] LABS: Microscopic, Urine URINE MICROSCOPIC (MICROSCOPIC)
--- NOTE | 2023-12-25 16:51 | PC.NURSE ---
BALAJI RUFF SPEAKING WITH [facility]
[2023-12-25 16:53] LABS: Procalcitonin 0.445 ng/mL (0.0-2.0)
[2023-12-25] MEDS: PIPERCILLIN/TAZO 3.375 GM in 0.9 % SODIUM CHLORIDE 50 ML IV (17:09)
[2023-12-25 17:13] LABS: Appearance,Urine CLEAR (Clear); Blood, Urine Negative (Negative); Color,Urine YELLOW (Yellow); Glucose,Urine (UA) Negative (Negative); Ketones,Urine TRACE (Negative); Leukocyte Esterase,Urine Negative (Negative); Nitrate,Urine POSITIVE (Negative); Protein,Urine 1+ (Negative); Specific Gravity, Urine >= 1.030 (1.005-1.030)
[2023-12-25 17:17] LABS: Bilirubin,Urine Negative (Negative)
[2023-12-25 17:18] LABS: Bacteria,Urine 4+ /lpf; Mucus,Urine 2+ /lpf
--- NOTE | 2023-12-25 17:44 | PC.NURSE ---
ROLL PANNER NOTIFIED OF ADMISSION
[2023-12-25 17:45] LABS: Lactate Venous 1.6 mmol/L (0.4-2.0)
[2023-12-25 17:53] LABS: Troponin I 0.07 ng/ml (0.00-0.034)
--- NOTE | 2023-12-25 18:16 | PC.NURSE ---
Report called to licha SCHMIDT
[2023-12-25] MEDS: HEPARIN SODIUM 5,000 UNIT/ML VIAL 5000 UNIT SQ (18:17)
[2023-12-25 18:34] LABS: Phosphorous 4.4 mg/dl (2.5-4.5)
[2023-12-25 18:35] LABS: Magnesium 1.9 mg/dl (1.6-2.3)
--- NOTE | 2023-12-25 19:45 | PC.NURSE ---
Patient's home medication reconciliation was completed at this time. Dr Calixto was paged to inform him about completion.
--- NOTE | 2023-12-25 20:31 | P.HP_ITS ---
History of Present Illness *Admission Date: 12/24/23 *Reason for visit:: Failure to thrive *History of present illness: Patient is a 68-year-old female with past medical history of CAD hypertension hyperlipidemia cardiac risk anxiety, Parkinsonsonism who presented to hospital for failure to thrive, dehydration. Patient at time of my evaluation appears very lethargic and not able to provide much history however patient appears to follow some commands, appears awake, patient does not appear to provide meaningful history, most of the history is from patient's chart. Patient has cracked lips, dry mucous membranes. Patient was found to have acute kidney injury in the emergency department and was admitted for further evaluation. [facility] Disclaimer: The information contained in this section may have been updated after the patient was seen, as this information can be updated by other users. Medical History Dilated aortic root CAD in [place] artery Angina pectoris Abnormal nuclear cardiac imaging test Carotid bruit Heart murmur Family history of ischemic heart disease Tobacco use disorder Abnormal electrocardiogram [ECG] [EKG] Edema of both lower extremities Chronic kidney disease Parkinsonian syndrome Most likely etiology EPS and baseline familial tremor. 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 TD has improved with Ingrezza. Tremor History of tremor for longer than 20 years, (father with similar movement disorder). 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 Her tremor at rest has improved, (likely improvement of EPS, parkinsonian syndrome). Surgical History History of cholecystectomy Family History Other Coronary artery disease Heart attack Social History Smoking Status: Current every day smoker alcohol intake: never substance use type: denies use current occupational status: disabled Travel in the last 8 weeks: None household members: other housing: retirement marital status: single Other Medical History Have you received the Flu Vaccine for this season: No Have you received the Pneumonia Vaccine: No Review of Systems Review of Systems Review of systems:: pertinent systems reviewed and negative unless documented below Meds Home Medications and Allergies Home Medications ?Medication ?Instructions ?Recorded ?Confirmed ?Type atorvastatin 10 mg tablet (Lipitor) 10 mg PO DAILY 07/10/22 12/25/23 History carbidopa 25 mg-levodopa 100 mg 1 tab PO TID 10/21/22 12/25/23 History tablet (Sinemet) amantadine HCl 100 mg tablet 100 mg PO BID #60 tabs 04/01/23 12/25/23 Rx propranolol 20 mg tablet 20 mg PO BID 09/19/23 12/25/23 History isosorbide mononitrate 30 mg 30 mg PO DAILY #90 tabs 11/19/23 12/25/23 Rx tablet,extended release 24 hr losartan 50 mg tablet 50 mg PO DAILY #90 tabs 11/19/23 12/25/23 Rx topiramate 50 mg tablet 50 mg PO BID 12/11/23 12/25/23 History ranolazine 500 mg tablet,extended 500 mg PO BID 12/25/23 12/25/23 History release,12 hr New Prescriptions to Start Prescriptions: Allergies Allergy/AdvReac Type Severity Reaction Status Date / Time cephalexin [From Keflex] Allergy Intermediate Verified 12/22/23 15:19 amlodipine [From [facility]] AdvReac Mild swelling Verified 12/22/23 15:19 Exam Data for Last 24 hours Vital signs and Labs for Last 24 Hours: Temp Pulse Resp BP Pulse Ox O2 Del Method 97.9 F 71 18 90/45 L 97 Room Air 12/25/23 18:33 12/25/23 18:33 12/25/23 18:33 12/25/23 18:33 12/25/23 17:00 12/25/23 18:52 Laboratory Results - last 24 hr 12/25/23 14:40: WBC 14.5 H, RBC 3.90 L, Hgb 12.1 L, Hct 36.3 L, MCV 93.0, MCH 31.0, MCHC 33.4, RDW 14.7, Plt Count 227, MPV 8.3, Neut % (Auto) 89.4 H, Lymph % (Auto) 5.4 L, [place] % (Auto) 4.6, Eos % (Auto) 0.4, Baso % (Auto) 0.3, Neut # (Auto) 13.0 H, Lymph # (Auto) 0.8, [place] # (Auto) 0.7, Eos # (Auto) 0.1, Baso # (Auto) 0.0, Total Counted 100, Neutrophils % (Manual) 86 H, Lymphocytes % (Manual) 11, Monocytes % (Manual) 3, Platelet Estimate Normal, RBC Morphology Normal, Sodium 144, Potassium 3.7, Chloride 116 H, Carbon Dioxide 21 L, Anion Gap 10.7, BUN 55 H, Creatinine 3.60 H, Estimated Creat Clear 16, Estimated GFR 13 L*, Est GFR ( Amer) 15 L*, Glucose 128 H, Calcium 9.7, Magnesium 1.8, Total Bilirubin 1.0, AST 32, ALT 17, Alkaline Phosphatase 90, Troponin I 0.07 H, NT-Pro-B Natriuret Pep 2990 H, Total Protein 6.7, Albumin 3.8, Globulin 2.9, Albumin/Globulin Ratio 1.3, Lipase 80, Procalcitonin 0.445, HIV 1&2 Antibody Rapid Nonreactive 12/25/23 16:42: Urine Color Yellow, Urine Appearance Clear, Urine pH 5.0, Ur Specific [place] >= 1.030, Urine Protein 1+ A, Urine Glucose (UA) Negative, Urine Ketones Trace, Urine Blood Negative, Urine Nitrate Positive, Urine Bilirubin Negative, Urine Urobilinogen 1.0, Ur Leukocyte Esterase Negative, Urine RBC 3-5, Urine WBC 10-20, Ur Squamous Epith Cells 3-5, Urine Bacteria 4+, Hyaline Casts 3-5, Urine Mucus 2+ 12/25/23 17:26: Troponin I 0.07 H 12/25/23 17:28: VBG Lactic Acid 1.6 12/25/23 18:00: Phosphorus 4.4, Magnesium 1.9 I & O for Last 24 hours: Intake & Output 12/22/23 12/23/23 12/24/23 12/25/23 23:59 23:59 23:59 23:59 Weight 68.039 kg Constitutional Constitutional: no acute distress, thin, cachectic and chronically ill appearing *Routine HEENT Exam Head: Present normocephalic Eye: Present EOMI and PERRL ENT: Present mucous membranes moist *Routine Neck Exam Neck: Present supple; Absent lymphadenopathy *Routine Respiratory Exam Respiratory: Present CTA bilaterally *Routine Cardiovascular Exam Cardiovascular: Present RRR *Routine Abdominal Exam Abdominal: Present soft and normoactive bowel sounds; Absent tenderness *Routine Rectal Exam Rectal:: deferred *Routine Genitalia Exam Genitalia:: deferred *Routine Extremities Exam Extremities: Absent cyanosis, clubbing or edema *Routine Skin Exam Skin: Present warm; Absent rash *Routine Neurological Exam Neurological: Present alert and oriented X3 Assessment and Plan *Assessment and plan (1) Acute on chronic renal failure: Status: Acute Category: Medical Code(s): N17.9 - Acute kidney failure, unspecified; N18.9 - Chronic kidney disease, unspecified (2) CAD in [place] artery: Status: Acute Category: Medical Code(s): I25.10 - Atherosclerotic heart disease of [place] coronary artery without angina pectoris (3) Parkinsonian syndrome: Problem Comment: 12/22/2023: Tremor improved upon discontinuation of valproic acid and after she was started on topiramate 50 mg p.o. twice daily. Most likely etiology EPS and baseline familial tremor. 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 TD has improved with Ingrezza but not longer approved by insurance company and need to transition to Austedo XR. Status: Chronic Category: Medical Code(s): G24.01 - Drug induced subacute dyskinesia (5) Proctitis: Status: Acute Category: Medical Code(s): K62.89 - Other specified diseases of anus and rectum Plan Patient is a 68-year-old female with past medical history of CAD hypertension hyperlipidemia cardiac risk anxiety, Parkinsonsonism who presented to hospital for failure to thrive, dehydration. Patient at time of my evaluation appears very lethargic and not able to provide much history however patient appears to follow some commands, appears awake, patient does not appear to provide meaningful history, most of the history is from patient's chart. Patient has cracked lips, dry mucous membranes. Patient was found to have acute kidney injury in the emergency department and was admitted for further evaluation. Assessment and plan Adult failure to thrive Acute kidney injury likely prerenal Dehydration Start IV hydration with normal saline Monitor and replace electrolytes Monitor BMP Consult PT/OT Consult dietitian Consult to speech therapy Hold nephrotoxic medications including home losartan Elevated troponin in the setting of TARA Monitor troponin Monitor on cardiac telemetry Resume home angio, propranolol, Ranexa Patient is chest pain-free, if troponin continues to get worse consult cardiology Proctitis Started on IV Zosyn Laxatives as needed Chronic medical conditions Parkinsonism Resume home carbidopa levodopa DVT prophylaxis-heparin
[2023-12-25] MEDS: 0.9 % SODIUM CHLORIDE 1000ML 1,000 ML 75 ML IV (20:55)
[2023-12-25] MEDS: CARBIDOPA/LEVODOPA 25/100MG TABLET 1 EACH PO (20:55)
[2023-12-25] MEDS: RANOLAZINE 500MG ER TABLET 500 MG PO (20:55)
[2023-12-25] MEDS: PROPRANOLOL 20MG TAB 20 MG PO (20:55)
[2023-12-25] MEDS: PATIENT'S OWN HOME MEDICATION (Topiramate 50 mg tablet) 50 EACH PO (20:57)
[2023-12-25] MEDS: AMANTADINE HCL 100 MG 100 EACH PO (20:57)
[2023-12-25] MEDS: ONDANSETRON 4MG/2ML VIAL 4 MG IV (21:05)
[2023-12-25 21:36] LABS: Troponin I 0.08 ng/ml (0.00-0.034)
[2023-12-26] VITALS: BP 82/47; PULSE 66; RESP 16; TEMP 37.1; O2SAT 97
[2023-12-26] MEDS: HEPARIN SODIUM 5,000 UNIT/ML VIAL 5000 UNIT SQ ×2 (01:23→21:00)
[2023-12-26 04:00] VITALS: BP 92/54; PULSE 65; RESP 18; TEMP 36.7; O2SAT 97; BMI 20.9
--- NOTE | 2023-12-26 05:00 | PC.NURSE ---
Patient is alert and oriented; however, periods of talking to herself and talking about things that were noticed by her but not by staff were noted. She was observed to be awake throughout the night. Patient has had some difficulty and hesitancy when swallowing PO medications and beverages. During med pass, the patient was coached when taking in fluids through a straw; however, fluid had to be poured into the patient's mouth first to get her to swallow. Then, she could suck through the straw. However, sucking through a straw remained a challenge for her and was not always successful. Patient was given ice water, mountain dew, and orange juice to drink; most of these were consumed. Yellow, cakey debris was noticed on her tongue and on her lips. Patient was given a bed bath this shift; her lower extremities were noticed to be very rigid with limited ROM. Concerning the upper extremities, she can grasp items but has difficulty maintaining her movements. Turning was initiated for the patient to avoid pressure ulcers. Patient has been having a nonproductive, weak cough. Upon auscultation, her lung sounds were diminished and her bowel sounds were hypoactive. Patient complained of an upset stomach once this shift; she was given zofran per MAR, providing relief. 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 Patient is incontinent. Patient has a alexandre in place; dark brown urine with a greenish tint and cloudiness was noticed to be draining. Patient's blood pressures have been hypotensive this shift. Normal saline is infusing at 75 mL/hr. At this time, the patient does not have any complaints. No acute changes noted thus far. Call light within reach.
[2023-12-26 06:29] LABS: Basophils % 0.3 % (0.1-2.0); Eosinophils % 0.1 % (0.1-12.0); Hematocrit 32.6 % (37.0-47.0); Lymphocytes # 0.8 K/mm3 (0.7-4.5); Lymphocytes % 7.4 % (10-50); Mean Corpuscular HGB Conc 32.6 g/dL (31.8-35.4); Mean Corpuscular Hemoglobin 30.7 pg (27.0-31.2); Mean Platelet Volume 8.3 fl (7.4-10.4); Monocytes # 0.7 K/mm3 (0.1-1.0); Monocytes % 6.3 % (1.7-9.3); Neutrophils # 9.4 K/mm3 (1.8-7.8); Neutrophils % 85.9 % (37.0-80.0); Platelet Count 190 K/mm3 (142-424); Red Blood Count 3.47 M/mm3 (4.20-5.40); Red Cell Distribution Width 14.6 % (11.5-17.5); White Blood Count 10.9 K/mm3 (4.8-10.8)
[2023-12-26 06:36] LABS: Albumin Level 3.4 g/dl (3.5-5.0); Chloride 118 mmol/L (98-107)
[2023-12-26 06:37] LABS: Potassium 3.6 mmoL/L (3.5-5.1)
[2023-12-26 06:39] LABS: Alanine Aminotransferase 7 U/L (12-78); Albumin/Globulin Ratio 1.2 (1.1-1.8); Alkaline Phosphatase 86 U/L (38-126); Anion Gap 17.6 mEq/L (5-15); Aspartate Amino Transferase 26 U/L (14-36); Bilirubin,Total 0.8 mg/dl (0.2-1.3); Blood Urea Nitrogen 66 mg/dl (7-17); Carbon Dioxide 18 mmol/L (22.0-30.0); Creatinine Clearance Estimated 13 mL/min (50-200); Estimated Glomerular Filt Rate 10 ml/min (>60); GFR (African American) 12 ML/MIN (>60); Globulin 2.8 g/dL (1.3-3.2); Phosphorous 4.1 mg/dl (2.5-4.5); Total Protein,Serum 6.2 g/dl (6.3-8.2)
[2023-12-26 06:40] LABS: Calcium 9.5 mg/dl (8.4-10.2); Glucose 102 mg/dl (74-100)
[2023-12-26 06:42] LABS: MANUAL DIFFERENTIAL MANUAL DIFFERENTIAL (MANUAL DIFF)
[2023-12-26 06:56] LABS: Sodium 150 mmol/L (136-145)
--- NOTE | 2023-12-26 06:56 | PC.NURSE ---
Lab called at this time to report a critical sodium value of 150 and a critical creatinine value of 4.4. Dr Calixto was paged to inform him about the critical lab values.
[2023-12-26 07:03] LABS: Hemoglobin 10.8 g/dL (12.2-16.2)
--- NOTE | 2023-12-26 07:13 | US_ITS ---
PROCEDURE INFORMATION: Exam: US Retroperitoneal, Complete, Kidneys and Bladder Exam date and time: 12/26/2023 11:20 AM Age: 68 years old Clinical indication: Condition or disease; Other: Louis; Additional info: Worsening louis TECHNIQUE: Imaging protocol: Real-time ultrasound of the retroperitoneum with image documentation. Complete exam focused on the bilateral kidneys and urinary bladder. COMPARISON: CT ABDOMEN PELVIS WO CON 12/25/2023 3:25 PM FINDINGS: Right kidney: Right kidney 9.8 cm. No hydronephrosis. Right renal cortex 6.9 mm Left kidney: Left kidney 9.7 cm. No hydronephrosis. Left renal cortex 10.9 mm Urinary bladder: Bladder is decompressed IMPRESSION: No hydronephrosis
[2023-12-26 07:31] LABS: Creatine Kinase 84 U/L (30-135)
[2023-12-26 07:34] LABS: Lymphocytes % 12 % (10-50); Monocytes % 1 % (2-9); Neutrophils % 87 % (42-76); Platelet Estimate Normal; RBC Morphology Normal; Total Cells Counted 100
[2023-12-26 07:44] VITALS: BP 110/80; PULSE 65; RESP 18; TEMP 36.6; O2SAT 98
--- NOTE | 2023-12-26 07:45 | HMH.PTEV ---
Physical Therapy Evaluation Rehab PT IP Evaluation Start: 12/26/23 00:00 Freq: ONCE Status: Active Protocol: Document 12/26/23 07:37 ESPERANZA (Rec: 12/26/23 07:45 ESPERANZA [id number]) Subjective/History History History Per H&P: Patient is a 68-year -old female with past medical history of CAD hypertension hyperlipidemia cardiac risk anxiety, Parkinsonsonism who presented to hospital for failure to thrive, dehydration . Patient at time of my evaluation appears very lethargic and not able to provide much history however patient appears to follow some commands, appears awake, patient does not appear to provide meaningful history, most of the history is from patient's chart. Patient has cracked lips, dry mucous membranes. Patient was found to have acute kidney injury in the emergency department and was admitted for further evaluation. Subjective Subjective Pt is a questionable historian . Oriented to self. Pt reports she lives in a 2-story house with friends. Pt reports her friends help her out with mobility as needed. Reports she does well with stairs but usually avoids them. Has 5 JAMES home. Pt was not driving prior. Pt uses a RW, w/c, and cane. New diagnosis of cancer in past 12 No months? Rehab PT IP Eval Objective Appearance Patient Behavior Appropriate Patient Orientation Person Difficulty following instructions mild Speech Pattern Garbled,Mumbled Ambulation Patient Able to Ambulate No Balance Ability to Arise Unable Sitting Balance Leans or slides in chair Transfers Bed Transfer Ability Maximum x 1 (75% assist) Rehab PT IP prob,goals,plan Problems Date of Evaluation: 12/26/23 PT IP Problems Bed Mobility,Transfers,Gait, Balance,Self care,Safety Rehab Potential Rehab Potential Fair Equipment Needs Assistive Devices Wheelchair Plan PT Intervention Plan Bed Mobility,Transfers,Gait, Balance,Safety,Therapeutic Exercise Other Intervention Plan 1-2 times PT Plan Frequency Daily Duration LOS Discharge Goals Bed Transfer Ability Moderate x 1 (50% assist) Sit to Stand Chair Transfer Ability Maximum x 2 (75% assist) Discharge Plan PT Discharge Plan Initial physical therapy evaluation performed. Patient presents below baseline at this time in functional mobility, transfers, and strength. Pt's limbs were rigid and required Max A to sit at EOB d/t inability to separate BLEs. Pt also required Mod A to remain sitting at EOB d/t rigid state and poor sitting balance. Pt not safe to return home at this time d/t current level of functional mobility. PT recommending a rehabilitation stay upon d/c from [facility]. Pt would benefit from skilled PT while at [facility] to prevent further functional decline and maximize safety with mobility . Eval Complexity Eval Charge Codes 20738 - Moderate Complexity PHYSICIAN CERTIFICATION: I certify the specified therapy services for Gladys Izquierdo are required, authorized, and reviewed every 30 days.
[2023-12-26 07:56] LABS: Creatinine,Urine Random 260 mg/dL (Not Estab.); Urea Nitrogen,Urine Random 774 mg/dl (Not Estab.)
--- NOTE | 2023-12-26 08:00 | SW/DCPLANNER ---
Addendum entered by Gypsy Brush RN 12/29/23 16:44: Called and spoke with Ema @ [facility], and notified her of MD stating patient was medically ready for discharge. She was agreeable for patient to return today. She also stated that she would start the end of life paperwork tomorrow. I notified Maura via VM of discharge today as well as Ema planning to start end of life process tomorrow. Addendum entered by Gypsy Brush RN 12/29/23 12:08: Per Dr. Mahmood this morning, patient is appropriate for Hospice services. She is unable to tolerate adequate nutrition per mouth and therefore is not medically stable to return to [facility] without Hospice. Spoke with guardian this morning, and she stated that I would need to speak with their nurse sap ppm consultant. Called sap ppm consultant, Rayne Wallis and started process for end of life care. Original Note: Patient currently resides at [facility] level of care. I will continue to follow up w/ Ema at [facility] until patient is medically stable for discharge. Discharge date is unknown at this time.
[2023-12-26] MEDS: DEXTROSE 5 % IN WATER 1,000 ML 150 ML IV ×2 (08:10→17:48)
--- NOTE | 2023-12-26 09:03 | ECG_ITS ---
APPROVED REPORT Exam: Resting ECG HR:65 bpm ECG Measurements Heart Rate 65 AXES MN 142 P 22 QRSd 122 QRS -33 QT 422 T 109 QTc 433 Conclusion SINUS RHYTHM LEFT AXIS DEVIATION [QRS AXIS < -30] SEPTAL MYOCARDIAL INFARCTION , PROBABLY OLD [40+ ms Q WAVE IN V1/V2] MODERATE T-WAVE ABNORMALITY, CONSIDER ANTEROLATERAL ISCHEMIA [-0.1+ mV T-WAVE IN V3-V6] ABNORMAL ECG UNCONFIRMED REPORT Electronically signed by : João Childers MD 12/28/2023 13:54:26
--- NOTE | 2023-12-26 09:25 | HMH.OTEV ---
OT Inpatient Evaluation Rehab OT IP Evaluation Start: 12/26/23 00:00 Freq: ONCE Status: Active Protocol: Document 12/26/23 08:[address] [address] (Rec: 12/26/23 09:24 [facility] [id number]) Rehab OT IP Assessment Subjective History Pt oriented x3 on arrival. Pt agreeable to engage in therapy evaluation. Pt admitted to [facility] on 12/24/23 due to failure to thrive. Pt history and physical report : Patient is a 68-year-old female with past medical history of CAD hypertension hyperlipidemia cardiac risk anxiety, Parkinsonsonism who presented to hospital for failure to thrive, dehydration . Patient at time of my evaluation appears very lethargic and not able to provide much history however patient appears to follow some commands, appears awake, patient does not appear to provide meaningful history, most of the history is from patient's chart. Patient has cracked lips, dry mucous membranes. Patient was found to have acute kidney injury in the emergency department and was admitted for further evaluation. Subjective Information provided by patient may not be accurate due to pt being a poor historian. Pt reports that they live in [place] with friends but later changed their response to living at [facility]. Pt reports that they are independent with all ADLs and IADLs. Pt reports that they can use both a wheelchair and walker for functional transfers. Pt resting in bed on arrival. Pt engaged in bed mobility with max assist x2 to get to eob. Pt demonstrated poor static sitting balance as they required max assist to correct posterior lean. Pt returned to supine position in bed with max assist x2. Pt demonstrated significant difficulty with mobility. Pt appears to have significant tremors, spasticity, and rigidity. Pt left resting in bed with call faustin and all other needs in reach. Objective Patient Orientation Place,Name,Birthday Right Upper Extremity Gross ROM Mod Limitation 50% Left Upper Extremity Gross ROM Mod Limitation 50% Shoulder ROM Limitations Muscle Weakness,Muscle Tone Elbow ROM Limitations Muscle Weakness,Muscle Tone Wrist Limitations of Range of Motion Muscle Weakness,Muscle Tone Bed Mobility bed mobility - supine/sit Assist Level Maximum x 2 (75% assist) Rehab OT IP prob,goals,plan Problems Date of Evaluation: 12/26/23 OT IP Problems Bed Mobility,Transfers,Balance ,Self care,Safety Rehab Potential Rehab Potential Good Equipment Needs Assistive Devices Wheelchair Plan OT intervention Plan Bed Mobility,Transfers,Balance ,Self care,Safety,Therapeutic Exercise OT Plan Frequency Daily Duration LOS Discharge Goals Bed Mobility Ability Assistance x1 Sit to Stand Chair Transfer Ability Maximum x 1 (75% assist) Chair Transfer Ability Maximum x 1 (75% assist) Chair Transfer Technique Stand Pivot Chair Transfer Assistive Devices Standard Walker Feeding Ability Needs Supervision Lower Body Dressing Ability Maximum Assistance Upper Body Dressing Ability Maximum Assistance Bathing Ability Maximum Assistance Performing Toilet Hygiene Ability Maximum Assistance Overall Commode/Toilet Transfer Ability Maximum Assistance Commode/Toilet Transfer Technique Stand Pivot Commode/Toilet Transfer Assistive Raised Toilet Seat,Grab Bars Devices Oral Care Assist Moderate Assistance Decrease in Endurance No Discharge Plan OT Discharge Plan Pt will continue to be seen for skilled OT services while at [facility]. Once medically stable, pt could return living at [facility] for long-term care. Therapist recommends pt receives short-term rehab to address functional decline upon returning to [facility]. Continued skilled services are important to improve safety, endurance, balance, ADL independence, and functional transfers to reach [facility]. Eval Complexity Eval Charge Codes 67905 - Moderate Complexity PHYSICIAN CERTIFICATION: I certify the specified therapy services for Gladys Izquierdo are required, authorized, and reviewed every 30 days.
[2023-12-26 09:33] LABS: PTT Heparin (inpatient only) 38.6 Seconds (50-75)
[2023-12-26] MEDS: MINERAL OIL ENEMA 133ML 133 ML RC ×2 (09:35→16:50)
[2023-12-26] MEDS: CARBIDOPA/LEVODOPA 25/100MG TABLET 1 EACH PO ×3 (09:36→21:00)
[2023-12-26] MEDS: PROPRANOLOL 20MG TAB 20 MG PO ×2 (09:36→21:00)
[2023-12-26] MEDS: TOPIRAMATE 25MG TABLET 50 MG PO ×2 (09:36→21:00)
[2023-12-26] MEDS: POLYETHYLENE GLYCOL 3350 17 GM PACKET PO (09:37)
[2023-12-26] MEDS: ISOSORBIDE MONO 30MG TAB.ER.24H 30 MG PO (09:37)
[2023-12-26] MEDS: AMANTADINE 100MG CAPSULE 100 MG PO ×2 (09:37→21:00)
[2023-12-26] MEDS: RANOLAZINE 500MG ER TABLET 500 MG PO (09:37)
[2023-12-26] MEDS: PIPERACILLIN/TAZO 2.25 GM in 0.9 % SODIUM CHLORIDE 50 ML IV ×3 (10:00→21:00)
--- NOTE | 2023-12-26 10:13 | CA_ITS ---
APPROVED REPORT EXAM: Comprehensive 2D, Doppler, and color-flow Echocardiogram Retail Greeting Card Merchandiser: Nataliya Ron RVT Ht: 5 ft 10 in Wt: 149lbs BSA: 1.84 BP: 90/45 mmHg Indications: ELEVATED TROP,CAD,SMOKER,HTN,HLD TDS-LIMITED WINDOWS R/T UNCONTROLLED SHAKING R/T PARKINSON DISEASE/TARDIVE DYSKINESA 2D Dimensions IVSd 1.36 cm F: 0.6-1.0 LVEF (Visual) 85.50 % PWd 0.69 cm F: 0.6 - 1.0 LA Volume 29.50 mL LVDd 4.04 cm F: 3.9 - 5.3 LA Volume Index 16.03 mL/m2 (M/F) 16-34 LVDs 1.85 cm F: 2.2 - 3.5 M-Mode Dimensions LA Diam 2.04 cm (1.9-4.0) LV Diastology E Decel Time 260 (160-240 msec) E/A Ratio 0.6 Aortic Valve CHERI Index 2.38 cm2/m2 AoV Peak Corbin. 171.0 (50-130 cm/s) AO Peak GR. 11.70 mmHg AO Mean GR. 5.40 (<5 mmHg) AO VTI 34.6 (18-25 cm) CHERI (VTI) 4.49 (2.5-4.5 cm2) Mitral Valve MV E Max Corbin. 81.0 (40-130 cm/s) MV A Velocity 128.0 (40-130 cm/s) E/A Ratio 0.64 MV PHT 76.0 ms Pulmonary Valve PV Peak Velocity 90.0 (50-150 cm/s) Tricuspid Valve TR P. Velocity 320.00 cm/s RAP Estimate 10.00 mmHg RVSP 50.90 mmHg Left Ventricle The left ventricle is normal size. The left ventricular systolic function is normal. The left ventricular ejection fraction is within the normal range. There is increased LV wall thickness. Diastolic function is indeterminate. There is normal LV segmental wall motion. LVEF is 55%. Right Ventricle Right ventricle is moderately dilated. Right ventricle is mildly hypokinetic. Atria The left atrium size is normal. The right atrium is mildly dilated. There is no Doppler evidence of interatrial shunt. Aortic Valve The aortic valve is mildly thickened. There is no aortic valvular stenosis. Trace aortic regurgitation. Mitral Valve The mitral valve leaflets are mildly thickened. Mild mitral regurgitation. No evidence of mitral valve stenosis. Tricuspid Valve The tricuspid valve leaflets are thin and pliable. Mild to moderate tricuspid regurgitation. RVSP is 40 mmHg + RA pressure. Pulmonic Valve The pulmonary valve is normal in structure. Trace pulmonic regurgitation. Great Vessels The aortic root is normal in size. The ascending aorta is not well-visualized. The IVC is not well-visualized. Pericardium Trivial, anterior pericardial effusion is present. No echo indications of tamponade. Other Information Study Quality: Technically Difficult Conclusion Technically difficult study due to poor acoustic windows. Normal LV systolic function. No regional LV wall motion abnormalities are noted. Moderately dilated RV with mild reduction in RV function. Mild to moderate TR. Mild MR. Elevated RVSP 40-45 mmHg. Compared to prior study from 10/2023, the RV dysfunction is new. Further evaluation for RV dysfunction, including PE workup, is recommended, if clinically indicated and feasible. Electronically signed by : Tracy Lopez MD 12/27/2023 00:43:49
--- NOTE | 2023-12-26 10:16 | EXP.CARD.CON ---
History of Present Illness History of Present Illness Consult date: 12/26/23 Requesting physician: Misael Mahmood Chief complaint: abdominal pain, cough, chest pain History of present illness: This is a 68-year-old white female with past medical history of coronary artery disease, hypertension, hyperlipidemia and parkinsonian syndrome who presented to hospital with complaints of abdominal pain, cough and chest pain. Upon presentation labs were as follow: WBC 14.5, hemoglobin 12.1, sodium 144, potassium 3.7, BUN 55, creatinine 3.6,troponin of 0.07 trending up to 0.10 and a proBNP of 2990. An abdomen pelvis CT was obtained which showed a distended rectum with mild proctitis and a left ovarian cyst. A chest CT was obtained which showed no acute process. EKG showed sinus rhythm at a rate of [address] and T wave abnormalities. Patient was ultimately admitted for failure to thrive and dehydration. Cardiology was asked to evaluate for uptrending troponins. This morning patient is complaining of epigastric and abdominal pain. Repeat EKG shows sinus rhythm with nonspecific ST changes. Of note patient had a medical management heart cath 11/2023. [facility] Disclaimer: The information contained in this section may have been updated after the patient was seen, as this information can be updated by other users. Medical History Dilated aortic root CAD in [place] artery Angina pectoris Abnormal nuclear cardiac imaging test Carotid bruit Heart murmur Family history of ischemic heart disease Tobacco use disorder Abnormal electrocardiogram [ECG] [EKG] Edema of both lower extremities Chronic kidney disease Parkinsonian syndrome Most likely etiology EPS and baseline familial tremor. 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 TD has improved with Ingrezza. Tremor History of tremor for longer than 20 years, (father with similar movement disorder). 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 Her tremor at rest has improved, (likely improvement of EPS, parkinsonian syndrome). Surgical History History of cholecystectomy Family History Other Coronary artery disease Heart attack Social History Smoking Status: Current every day smoker alcohol intake: never substance use type: denies use current occupational status: disabled Travel in the last 8 weeks: None household members: other housing: long term marital status: single Review of Systems Review of Systems Review of systems:: pertinent systems reviewed and negative unless documented below Constitutional Constitutional: Reports poor appetite, Reports lethargy and Reports weight loss ENT Comments: cough *Cardiovascular Cardiovascular: Reports chest pain *Respiratory Respiratory: Reports system reviewed and no additional complaints, except as documented *Gastrointestinal Gastrointestinal: Reports system reviewed and no additional complaints, except as documented *Neurologic Neurologic: Reports system reviewed and no additional complaints, except as documented and Denies confusion Psychiatric Psychiatric: Reports system reviewed and no additional complaints, except as documented and Denies confusion Exam Data for Last 24 hours Vital signs and Labs for Last 24 Hours: Temp Pulse Resp BP Pulse Ox O2 Del Method 97.9 F 65 18 110/80 98 Room Air 12/26/23 07:44 12/26/23 07:44 12/26/23 07:44 12/26/23 07:44 12/26/23 07:44 12/26/23 07:44 Laboratory Results - last 24 hr 12/25/23 14:40: WBC 14.5 H, RBC 3.90 L, Hgb 12.1 L, Hct 36.3 L, MCV 93.0, MCH 31.0, MCHC 33.4, RDW 14.7, Plt Count 227, MPV 8.3, Neut % (Auto) 89.4 H, Lymph % (Auto) 5.4 L, [place] % (Auto) 4.6, Eos % (Auto) 0.4, Baso % (Auto) 0.3, Neut # (Auto) 13.0 H, Lymph # (Auto) 0.8, [place] # (Auto) 0.7, Eos # (Auto) 0.1, Baso # (Auto) 0.0, Total Counted 100, Neutrophils % (Manual) 86 H, Lymphocytes % (Manual) 11, Monocytes % (Manual) 3, Platelet Estimate Normal, RBC Morphology Normal, Sodium 144, Potassium 3.7, Chloride 116 H, Carbon Dioxide 21 L, Anion Gap 10.7, BUN 55 H, Creatinine 3.60 H, Estimated Creat Clear 16, Estimated GFR 13 L*, Est GFR ( Amer) 15 L*, Glucose 128 H, Calcium 9.7, Magnesium 1.8, Total Bilirubin 1.0, AST 32, ALT 17, Alkaline Phosphatase 90, Troponin I 0.07 H, NT-Pro-B Natriuret Pep 2990 H, Total Protein 6.7, Albumin 3.8, Globulin 2.9, Albumin/Globulin Ratio 1.3, Lipase 80, Procalcitonin 0.445, HIV 1&2 Antibody Rapid Nonreactive 12/25/23 16:42: Urine Color Yellow, Urine Appearance Clear, Urine pH 5.0, Ur Specific [place] >= 1.030, Urine Protein 1+ A, Urine Glucose (UA) Negative, Urine Ketones Trace, Urine Blood Negative, Urine Nitrate Positive, Urine Bilirubin Negative, Urine Urobilinogen 1.0, Ur Leukocyte Esterase Negative, Urine RBC 3-5, Urine WBC 10-20, Ur Squamous Epith Cells 3-5, Urine Bacteria 4+, Hyaline Casts 3-5, Urine Mucus 2+, Ur Random Urea Nitrogn 774, Urine Creatinine 260, Urine Sodium 17.0 L 12/25/23 17:26: Troponin I 0.07 H 12/25/23 17:28: VBG Lactic Acid 1.6 12/25/23 18:00: Phosphorus 4.4, Magnesium 1.9 12/25/23 21:00: Troponin I 0.08 H 12/26/23 00:20: Troponin I 0.10 H 12/26/23 05:59: WBC 10.9 H, RBC 3.47 L, Hgb 10.8 L D, Hct 32.6 L, MCV 94.0, MCH 30.7, MCHC 32.6, RDW 14.6, Plt Count 190, MPV 8.3, Neut % (Auto) 85.9 H, Lymph % (Auto) 7.4 L, [place] % (Auto) 6.3, Eos % (Auto) 0.1, Baso % (Auto) 0.3, Neut # (Auto) 9.4 H, Lymph # (Auto) 0.8, [place] # (Auto) 0.7, Eos # (Auto) 0.0, Baso # (Auto) 0.0, Total Counted 100, Neutrophils % (Manual) 87 H, Lymphocytes % (Manual) 12, Monocytes % (Manual) 1 L, Platelet Estimate Normal, RBC Morphology Normal, Sodium 150 H, Potassium 3.6, Chloride 118 H, Carbon Dioxide 18 L, Anion Gap 17.6 H, BUN 66 H, Creatinine 4.40 H D, Estimated Creat Clear 13, Estimated GFR 10 L*, Est GFR ( Amer) 12 L*, Glucose 102 H D, Calcium 9.5, Phosphorus 4.1, Magnesium 2.0, Total Bilirubin 0.8, AST 26, ALT 7 L D, Alkaline Phosphatase 86, Total Creatine Kinase 84, Troponin I 0.10 H, Total Protein 6.2 L, Albumin 3.4 L D, Globulin 2.8, Albumin/Globulin Ratio 1.2 12/26/23 08:50: APTT 38.6 L I & O for Last 24 hours: Intake & Output 12/23/23 12/24/23 12/25/23 12/26/23 23:59 23:59 23:59 23:59 Intake Total 240 / 240 Output Total 325 / 325 Balance -85 / -85 Weight 150 lb 149 lb 4.047 oz Constitutional Constitutional: thin and chronically ill appearing Comments: Dry mucous membranes noted *Routine Respiratory Exam Respiratory: Present CTA bilaterally and symmetric chest movement *Routine Cardiovascular Exam Cardiovascular: Present RRR, Normal S1 and Normal S2 *Routine Abdominal Exam Abdominal: Present soft and normoactive bowel sounds; Absent tenderness *Routine Extremities Exam Extremities: Present full ROM and normal capillary refill; Absent edema *Routine Skin Exam Skin: Present intact, dry and warm Detailed Neck Exam: Thyroids Thyroid: Absent bruit Meds Home Medications and Allergies Home Medications ?Medication ?Instructions ?Recorded ?Confirmed ?Type atorvastatin 10 mg tablet (Lipitor) 10 mg PO DAILY 07/10/22 12/25/23 History carbidopa 25 mg-levodopa 100 mg 1 tab PO TID 10/21/22 12/25/23 History tablet (Sinemet) amantadine HCl 100 mg tablet 100 mg PO BID #60 tabs 04/01/23 12/25/23 Rx propranolol 20 mg tablet 20 mg PO BID 09/19/23 12/25/23 History isosorbide mononitrate 30 mg 30 mg PO DAILY #90 tabs 11/19/23 12/25/23 Rx tablet,extended release 24 hr losartan 50 mg tablet 50 mg PO DAILY #90 tabs 11/19/23 12/25/23 Rx topiramate 50 mg tablet 50 mg PO BID 12/11/23 12/25/23 History ranolazine 500 mg tablet,extended 500 mg PO BID 12/25/23 12/25/23 History release,12 hr New Prescriptions to Start Prescriptions: Allergies Allergy/AdvReac Type Severity Reaction Status Date / Time cephalexin [From Keflex] Allergy Intermediate Verified 12/22/23 15:19 amlodipine [From Norvas] AdvReac Mild swelling Verified 12/22/23 15:19 Assessment and Plan *Assessment and plan (1) Elevated brain natriuretic peptide (BNP) level: Status: Acute Category: Medical Code(s): R79.89 - Other specified abnormal findings of blood chemistry (2) Acute on chronic renal failure: Status: Acute Category: Medical Code(s): N17.9 - Acute kidney failure, unspecified; N18.9 - Chronic kidney disease, unspecified (3) CAD in [place] artery: Status: Acute Category: Medical Code(s): I25.10 - Atherosclerotic heart disease of [place] coronary artery without angina pectoris (4) Myocardial bridge: Status: Acute Category: Medical Code(s): Q24.5 - Malformation of coronary vessels (5) Myocardial injury: Status: Acute Category: Medical Code(s): I5A - Non-ischemic myocardial injury (non-traumatic) Plan Acute myocardial injury History of coronary artery disease History of myocardial bridge Elevated troponin Elevated troponins trending up to 0.1 in the setting of acute on chronic kidney disease with a creatinine of 4.4 Left heart cath 11/2023: Continue medical management for mild nonflow disease and moderate myocardial bridge involving the mid LAD. Normal EF and normal LVEDP. Echo 10/2023 shows normal biventricular systolic function with mild biatrial dilation mild MR mild TR with RVSP of 25-[address] changes No plan for intervention at this time. Elevated troponin likely secondary to TARA. Will obtain a repeat limited echo to check EF. If any substantial changes noted we will consider intervention. Continue atorvastatin 10 mg p.o. daily and Imdur 30 mg daily. Increase Ranexa to 1000 mg p.o. twice daily Acute on chronic kidney injury Creatinine elevated to one 4.4 in the setting of dehydration and possible UTI Will defer to primary service management CV summary 12/26/2023: CAD is likely stable. No plan for intervention at this time. Will repeat a limited echo and if any substantial changes are noted consider additional testing/intervention. Increase Ranexa to 1000 mg p.o. twice daily. Cardiology will sign off. Please contact service as needed. Cardiac meds: Atorvastatin 10 mg p.o. daily Imdur 30 mg p.o. daily Ranexa 1000 mg p.o. twice daily
[2023-12-26 12:13] VITALS: BMI 20.9
[2023-12-26 12:18] LABS: Chloride 116 mmol/L (98-107)
[2023-12-26 12:19] LABS: Potassium 3.3 mmoL/L (3.5-5.1); Sodium 146 mmol/L (136-145)
[2023-12-26 12:22] LABS: Anion Gap 15.3 mEq/L (5-15); Blood Urea Nitrogen 66 mg/dl (7-17); Calcium 9.1 mg/dl (8.4-10.2); Carbon Dioxide 18 mmol/L (22.0-30.0); Creatinine Clearance Estimated 14 mL/min (50-200); Estimated Glomerular Filt Rate 11 ml/min (>60); GFR (African American) 13 ML/MIN (>60); Glucose 156 mg/dl (74-100)
--- NOTE | 2023-12-26 13:09 | HMH.SLDYSPHA ---
Speech & Language Evaluation Speech/Language Dysphagia Evaluation Start: 12/26/23 12:47 Freq: ONCE Status: Active Protocol: Document 12/26/23 12:48 MILAGROS (Rec: 12/26/23 13:09 ECLARK Laptop) Co-signed By ST [facility] Dysphagia Assess/Goals/Plan Assessment Date of Evaluation: 12/26/23 Evaluation Type Initial Certification Assessment/Problems swallow eval per MD order Does Patient Qualify for Service No Qualify/Failure Comment Based on clinical observations made throughout bedside clinical swallow evaluation and pt/nursing interview, further skilled speech services are not warranted at this time d/t no overt s/sx of aspiration. Recommendations PHYSICIAN CERTIFICATION: The specified therapy services are required, authorized, and reviewed every 30 days. Diet Recommendations Mechanical Soft Liquid Type Recommendations Normal/Thin SL Swallow Guidelines Assist w/all meals,Alt bite w/ sip thru meal,Standard Aspiration Prec.,Eat at slow rate,Oral Care Education,Oral care pre/post meals,Reflux precautions Dysphagia Swallow Precautions/Strategies Sitting Upright (90 deg), Double Swallow,Small Bites and Sips,Alternate Liquids/Solids Plan Pt/Guardian verbally ack understanding Yes of dx/prognosis/goals G -code Required No Education Instructions provided CEO NA discussed clinical observations made throughout bedside CSE, aspiration precautions/compensatory strategies, and diet recommendations with pt, nursing, and CM, all of which expressed understanding. Pt/Caregiver able to recall information Able to recall/restate Reinforcement needed No Speech & Language HPI History Present Illness Description of Patient Problem CEO NA pulled the following information from pt's H&P and Chest CT: Patient is a 68-year-old female with past medical history of CAD hypertension hyperlipidemia cardiac risk anxiety, Parkinsonsonism who presented to hospital for failure to thrive, dehydration . Patient at time of my evaluation appears very lethargic and not able to provide much history however patient appears to follow some commands, appears awake, patient does not appear to provide meaningful history, most of the history is from patient's chart. Patient has cracked lips, dry mucous membranes. Patient was found to have acute kidney injury in the emergency department and was admitted for further evaluation. Chest CT: FINDINGS: The ascending aorta measures 3 .8 cm in diameter. There is no evidence of mediastinal mass or adenopathy. The lungs are clear. The heart size is normal. There is no pericardial or pleural effusion. No suspicious infiltrate or nodule identified. There is moderate anterior osteophyte formation in the midthoracic spine. IMPRESSION: No acute process. Pt/Caregiver Concerns Pt did not state any concerns r/t swallowing to CEO NA. Pt did state that she felt very nauseous at end of evaluation. Rehab Services Assessed Speech therapy Is this evaluation r/t stroke? No Language Primary Language Luxembourgish Therapy History Seen by other SL therapists No General Information General Current Food Consistancy Regular,Thin Liquids Dentition Edentulous Patient Orientation Person Ability to Follow Directions Excellent Communication Ability No Impairment Dysphagia:Food Presentation Evaluation Food Type Pureed,Mechanical Soft,Liquid, Pudding Dysphagia Evaluation Mechanical Soft Difficulty chewing,Residual on Food Behavior Response tongue Dysphagia Evaluation Summary Pt was seen siting upright in her bed this afternoon. She was oriented to only person, and CEO NA provided oral care prior to administering bolus consistencies for evaluation. Pt was observed to have dried secretions on tongue and lips. Pt seemed to be confused as she was stating I have to pay my bills and reaching into the air throughout evaluation. She appeared to be edentulous . Bolus consistencies given include ice chips, thin liquid (water) via straw and open cup, pudding, puree ( applesauce), and mechanical soft (cookie). Regular consistency was not given '2 poor dentition. All bolus presentations were administered x2 to assess for fatigue and consistency. Pt did not demonstrate any overt s/sx of aspiration on any trial administered. Pt exhibited lingual residue on mechanical soft trials, which was cleared with a liquid wash . Pt demonstrated prolonged mastication and manipulation of bolus on mechanical soft trial 2' dentition. AT end of CSE, pt stated that she felt very nauseous, so CEO NA provided Emesis bag to pt and notified nursing. CEO NA recommends mechanical soft diet/thin liquids w/ assist on all meals using small bites and sips, sitting upright during and 30- 60 minutes after meals, and alternating bites and sips. Further skilled speech therapy services are not warranted for this pt at this time. Stroke Dysphagia Assessment PHYSICIAN CERTIFICATION: I certify the specified therapy services for Gladys Izquierdo are required, authorized, and reviewed every 30 days.
[2023-12-26 16:00] VITALS: BP 99/59; PULSE 59; RESP 17; TEMP 36.6; O2SAT 96
--- NOTE | 2023-12-26 18:07 | PC.NURSE ---
pt is a/o x4 with periods of acute confusion. creatinine has decreased from 4.4 to 4.1. D5W currently running 150 mls/hr. i have administered two fleet enemas this shift per MAR, pt has not had a BM this shift. urine remains dark brown/ black. no c/o pain or nausea this shift. pt was able to sip water through a straw and swallows pills whole. bed alarm remains on, call light within reach, no further requests at this time.
[2023-12-26 18:11] LABS: Chloride 115 mmol/L (98-107); Potassium 3.3 mmoL/L (3.5-5.1); Sodium 146 mmol/L (136-145)
[2023-12-26 18:14] LABS: Anion Gap 16.3 mEq/L (5-15); Blood Urea Nitrogen 67 mg/dl (7-17); Calcium 9.2 mg/dl (8.4-10.2); Carbon Dioxide 18 mmol/L (22.0-30.0); Creatinine Clearance Estimated 14 mL/min (50-200); Estimated Glomerular Filt Rate 11 ml/min (>60); GFR (African American) 13 ML/MIN (>60); Glucose 111 mg/dl (74-100)
--- NOTE | 2023-12-26 19:16 | EXP.PN ---
Subjective *Date: 12/26/23 *Time: 20:36 Interval history: Patient looks a little better today, but still looks quite dehydrated. Minimally conversational. Continues to have mild fecal vaginal discharge. Exam Data for Last 24 hours Vital signs and Labs for Last 24 Hours: Temp Pulse Resp BP Pulse Ox O2 Del Method 97.9 F 59 L 17 99/59 L 96 Room Air 12/26/23 16:00 12/26/23 16:00 12/26/23 16:00 12/26/23 16:00 12/26/23 16:00 12/26/23 17:00 Laboratory Results - last 24 hr 12/25/23 16:42: Ur Random Urea Nitrogn 774, Urine Creatinine 260, Urine Sodium 17.0 L 12/25/23 21:00: Troponin I 0.08 H 12/26/23 00:20: Troponin I 0.10 H 12/26/23 05:59: WBC 10.9 H, RBC 3.47 L, Hgb 10.8 L D, Hct 32.6 L, MCV 94.0, MCH 30.7, MCHC 32.6, RDW 14.6, Plt Count 190, MPV 8.3, Neut % (Auto) 85.9 H, Lymph % (Auto) 7.4 L, [place] % (Auto) 6.3, Eos % (Auto) 0.1, Baso % (Auto) 0.3, Neut # (Auto) 9.4 H, Lymph # (Auto) 0.8, [place] # (Auto) 0.7, Eos # (Auto) 0.0, Baso # (Auto) 0.0, Total Counted 100, Neutrophils % (Manual) 87 H, Lymphocytes % (Manual) 12, Monocytes % (Manual) 1 L, Platelet Estimate Normal, RBC Morphology Normal, Sodium 150 H, Potassium 3.6, Chloride 118 H, Carbon Dioxide 18 L, Anion Gap 17.6 H, BUN 66 H, Creatinine 4.40 H D, Estimated Creat Clear 13, Estimated GFR 10 L*, Est GFR ( Amer) 12 L*, Glucose 102 H D, Calcium 9.5, Phosphorus 4.1, Magnesium 2.0, Total Bilirubin 0.8, AST 26, ALT 7 L D, Alkaline Phosphatase 86, Total Creatine Kinase 84, Troponin I 0.10 H, Total Protein 6.2 L, Albumin 3.4 L D, Globulin 2.8, Albumin/Globulin Ratio 1.2 12/26/23 08:50: APTT 38.6 L 12/26/23 12:00: Sodium 146 H, Potassium 3.3 L, Chloride 116 H, Carbon Dioxide 18 L, Anion Gap 15.3 H, BUN 66 H, Creatinine 4.10 H, Estimated Creat Clear 14, Estimated GFR 11 L*, Est GFR ( Amer) 13 L*, Glucose 156 H D, Calcium 9.1 12/26/23 18:00: Sodium 146 H, Potassium 3.3 L, Chloride 115 H, Carbon Dioxide 18 L, Anion Gap 16.3 H, BUN 67 H, Creatinine 4.00 H, Estimated Creat Clear 14, Estimated GFR 11 L*, Est GFR ( Amer) 13 L*, Glucose 111 H D, Calcium 9.2 I & O for Last 24 hours: Intake & Output 12/23/23 12/24/23 12/25/23 12/26/23 23:59 23:59 23:59 23:59 Intake Total 1920 / 1920 Output Total 325 / 325 Balance 1595 / 1595 Weight 68.039 kg 67.7 kg Microbiology Reports for the Last 24 Hours: Microbiology 12/25/23 15:20 Blood Blood Culture - Preliminary NO GROWTH AFTER 24 HOURS 12/25/23 15:15 Blood Blood Culture - Preliminary NO GROWTH AFTER 24 HOURS Constitutional Constitutional: no acute distress and cachectic Comments: Pleasant. *Routine HEENT Exam Head: Present normocephalic Eye: Present EOMI and PERRL ENT: Present mucous membranes moist *Routine Neck Exam Neck: Present supple; Absent lymphadenopathy *Routine Respiratory Exam Respiratory: Present CTA bilaterally *Routine Cardiovascular Exam Cardiovascular: Present RRR *Routine Abdominal Exam Abdominal: Present soft and normoactive bowel sounds; Absent tenderness *Routine Exam Comments: Mild feces discharge from vagina. *Routine Extremities Exam Extremities: Absent cyanosis, clubbing or edema *Routine Skin Exam Skin: Present warm; Absent rash *Routine Neurological Exam Neurological: Present alert Comments: Parkinsonian tremors. Assessment and Plan *Assessment and plan (1) Proctitis: Status: Acute Category: Medical Code(s): K62.89 - Other specified diseases of anus and rectum (2) Elevated troponin: Status: Acute Category: Medical Code(s): R79.89 - Other specified abnormal findings of blood chemistry (3) Fistula of vagina: Status: Acute Category: Medical Code(s): N82.8 - Other female genital tract fistulae (4) Acute on chronic renal failure: Status: Acute Category: Medical Code(s): N17.9 - Acute kidney failure, unspecified; N18.9 - Chronic kidney disease, unspecified (5) CAD in [place] artery: Status: Acute Category: Medical Code(s): I25.10 - Atherosclerotic heart disease of [place] coronary artery without angina pectoris (6) Parkinson disease: Status: Acute Category: Medical Code(s): G20.A1 - Parkinson's disease without dyskinesia, without mention of fluctuations (7) Failure to thrive: Status: Acute Category: Medical Plan Patient is a 68-year-old female with past medical history of CAD hypertension hyperlipidemia cardiac risk anxiety, Parkinsonsonism who presented to hospital for failure to thrive, dehydration. Patient at time of my evaluation appears very lethargic and not able to provide much history however patient appears to follow some commands, appears awake, patient does not appear to provide meaningful history, most of the history is from patient's chart. Patient has cracked lips, dry mucous membranes. Patient was found to have acute kidney injury in the emergency department and was admitted for further evaluation. #Parkinson's disease, dimentia, dysphagia #Failure to thrive #Severe malnutrition - My impression is that Parkinson's disease has processed beyond patient's ability to cope or compensate. She was in a very frail state at her nursing facility, with undiagnosed colovaginal fistula, severe rectal stool impaction, severely dehydrated from poor oral intake, physical deconditioning. - Not eating adequately, cannot care of herself. - [place] - Patient is improving with somewhat increased appetite after treatment of TARA, UTI/proctitis. However, if patient continues to have poor oral feeds patient would be appropriate candidate for hospice care given comorbidities. Will speak to case management on Friday. - Continue carbidopa/levadopa. ? Ensure supplements with meals. ? Nutrition consulted. #TARA on CKD stage III ? Initial creatinine 4.4 - Continue D5W @ 150ml/hr - Creatinine improving to 4.0 today. Baseline around 1.3. #UTI #Colovaginal fistula ? UA highly suggestive of UTI. Urine was feces colored initially in the setting of colovaginal fistula. - general surgery recommended outpatient eval and management colovaginal fistula. Stable, but continues to have mild vaginal fecal discharge. ? Urine cultures are negative. Will continue to treat given presentation as above. - Continue Zosyn day 2. #Severe rectal impaction #Proctitis - S/p mineral oil enema with multiple bowel movements. Abdominal pain improved. ? Initial WBC 14.5-resolved to 8.3. ? Continue Zosyn as above for UTI. ? MiraLAX daily. #Elevated troponins #NSTEMI type II #CAD ? Troponins initially elevated up to 0.10, though in the setting of severe TARA on CKD. EKG did not show acute ischemic findings. ? 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 Normal EF and normal LVEDP. - Echo 10/2023 shows normal biventricular systolic function with mild biatrial dilation mild MR mild TR with RVSP of 25-30. Similar to the echo on admission. ? Continue atorvastatin 10 mg, Imdur 30 mg. ? Cardiology consulted, increased Ranexa to 1000 mg twice daily Full code Lovenox 40
[2023-12-26 20:00] VITALS: BP 103/52; PULSE 68; RESP 16; TEMP 38.2; O2SAT 99
--- NOTE | 2023-12-26 20:58 | PC.NURSE ---
Dr Calixto was paged at this time concerning administrating propranolol this evening. Patient's blood pressure was 103/52 and her heart rate was 68. Dr Calixto stated that it would be ok to still administer the medication.
[2023-12-26] MEDS: ACETAMINOPHEN 325MG TAB 650 MG PO (21:00)
[2023-12-26] MEDS: RANOLAZINE 500MG ER TABLET 1000 MG PO (21:00)
[2023-12-26] MEDS: ATORVASTATIN 10MG TABLET 10 MG PO (21:00)
[2023-12-26] MEDS: ONDANSETRON 4MG/2ML VIAL 4 MG IV (22:05)
--- NOTE | 2023-12-27 00:07 | PC.NURSE ---
STEWART's Shift Patient is alert and oriented, but has had occasional confusion periods involving talking to herself. Patient was noticed to still have a weak, nonproductive cough. Patient vomited once so far and complained of feeling nauseated; she was given zofran per MAY, which provided her relief. Patient received her scheduled PO medications and IV antibiotic per MAY. Patient continues to have difficulty sucking fluid through a straw. To take her PO medications, fluid was spoonfed into her mouth; this was noticed to be easier for the patient to swallow her pills. She refused a bedtime snack; she is on a soft mechanical diet. Patient's lower extremities are rigid with limited ROM; patient has tremoring in her upper extremities and is unsteady with her grasp. Tardive dyskinesia is noted. Her neck also has limited ROM. Upon auscultation, her lung sounds were diminished and her bowel sounds were active. She has had one smear of a bowel movement thus far this shift. Patient remains to be turned every 2 hours to avoid pressure injuries. Patient's IV (previously in the left AC) was replaced due to its dislodgment; she has a new IV in the left wrist. D5W is infusing at 150 mL/hr. Fletcher catheter is in place; it has been draining dark romi and cloudy urine thus far. At this time, the patient is resting awake in bed. No further complaints noted. Call light within reach.
[2023-12-27] MEDS: DEXTROSE 5 % IN WATER 1,000 ML 150 ML IV ×3 (02:10→17:32)
[2023-12-27] MEDS: PIPERACILLIN/TAZO 2.25 GM in 0.9 % SODIUM CHLORIDE 50 ML IV ×4 (02:10→21:15)
[2023-12-27 02:54] VITALS: BMI 20.9
[2023-12-27 04:00] VITALS: BP 95/41; PULSE 60; RESP 16; TEMP 36.7; O2SAT 96
[2023-12-27 05:10] VITALS: BP 100/62
--- NOTE | 2023-12-27 05:15 | PC.NURSE ---
Alert and oriented, intermittent confusion. Has been resting on and off since taking over care @ 0100. Q2 turn. Large BM since my arrival. Fletcher in place and draining. No complaints from patient. Tolerating room air. Call light in reach.
[2023-12-27 06:53] LABS: Basophils % 0.1 % (0.1-2.0); Eosinophils % 0.1 % (0.1-12.0); Hematocrit 29.7 % (37.0-47.0); Hemoglobin 9.9 g/dL (12.2-16.2); Lymphocytes # 0.9 K/mm3 (0.7-4.5); Lymphocytes % 9.5 % (10-50); Mean Corpuscular HGB Conc 33.5 g/dL (31.8-35.4); Mean Corpuscular Hemoglobin 30.7 pg (27.0-31.2); Mean Corpuscular Volume 91.6 fl (81-99); Mean Platelet Volume 8.6 fl (7.4-10.4); Monocytes # 0.4 K/mm3 (0.1-1.0); Monocytes % 4.5 % (1.7-9.3); Neutrophils # 8.1 K/mm3 (1.8-7.8); Neutrophils % 85.8 % (37.0-80.0); Platelet Count 156 K/mm3 (142-424); Red Blood Count 3.24 M/mm3 (4.20-5.40); Red Cell Distribution Width 14.8 % (11.5-17.5); White Blood Count 9.4 K/mm3 (4.8-10.8)
[2023-12-27 06:55] LABS: MANUAL DIFFERENTIAL MANUAL DIFFERENTIAL (MANUAL DIFF)
[2023-12-27 06:58] LABS: Chloride 112 mmol/L (98-107); Sodium 143 mmol/L (136-145)
[2023-12-27 07:01] LABS: Alanine Aminotransferase 11 U/L (12-78); Albumin/Globulin Ratio 1.1 (1.1-1.8); Alkaline Phosphatase 86 U/L (38-126); Aspartate Amino Transferase 31 U/L (14-36); Bilirubin,Total 0.8 mg/dl (0.2-1.3); Blood Urea Nitrogen 65 mg/dl (7-17); Carbon Dioxide 18 mmol/L (22.0-30.0); Creatinine Clearance Estimated 16 mL/min (50-200); Estimated Glomerular Filt Rate 13 ml/min (>60); GFR (African American) 16 ML/MIN (>60); Globulin 2.7 g/dL (1.3-3.2); Total Protein,Serum 5.7 g/dl (6.3-8.2)
[2023-12-27 07:02] LABS: Calcium 8.9 mg/dl (8.4-10.2); Glucose 150 mg/dl (74-100)
[2023-12-27 07:48] LABS: Magnesium 1.8 mg/dl (1.6-2.3)
[2023-12-27 07:58] VITALS: BP 102/54; PULSE 57; RESP 18; TEMP 36.7; O2SAT 96
[2023-12-27] MEDS: POTASSIUM CHLORIDE 20MEQ TAB 40 MEQ PO (08:10)
[2023-12-27] MEDS: HEPARIN SODIUM 5,000 UNIT/ML VIAL 5000 UNIT SQ ×2 (08:10→13:14)
[2023-12-27] MEDS: AMANTADINE 100MG CAPSULE 100 MG PO ×2 (08:11→21:16)
[2023-12-27] MEDS: TOPIRAMATE 25MG TABLET 50 MG PO ×2 (08:11→21:17)
[2023-12-27] MEDS: RANOLAZINE 500MG ER TABLET 1000 MG PO ×2 (08:11→21:17)
[2023-12-27] MEDS: ISOSORBIDE MONO 30MG TAB.ER.24H 30 MG PO (08:11)
[2023-12-27] MEDS: CARBIDOPA/LEVODOPA 25/100MG TABLET 1 EACH PO ×3 (08:11→21:17)
[2023-12-27 08:26] LABS: D-Dimer 1.26 ug/mL (0.0-0.5)
[2023-12-27 08:28] LABS: HCV Ab Non Reactive (Non Reactive)
[2023-12-27 08:56] LABS: Eosinophils % 1 % (0-3); Lymphocytes % 15 % (10-50); Monocytes % 3 % (2-9); Neutrophils % 81 % (42-76); Platelet Estimate Normal; RBC Morphology Normal; Total Cells Counted 100
[2023-12-27] MEDS: ENOXAPARIN 80MG/0.8ML SYRINGE 70 MG SQ (15:01)
[2023-12-27 16:00] VITALS: BP 103/56; PULSE 68; RESP 17; TEMP 36.6; O2SAT 97
--- NOTE | 2023-12-27 17:12 | PC.NURSE ---
patient is a/ox4 with periods of acute confusion at times. she remains on RA and is tolerating well. she has had several loose BM this shift. pt has been turned q2 hours. she has c/o nausea without vomiting this shift but has denied any medication to help with nausea on several attempts this AM. no c/o nausea remain. no c/o pain. pt has refused eating for both me and the SRNA. she has only requested vanilla ensure and mountain dew which has been provided. creatinine has been showing signs of improvement this shift. dextrose running at 150 mls/hr. patient has been slightly hypotensive this shift MD notified, propranolol held this AM per MD. no further requests at this time, call light within reach.
--- NOTE | 2023-12-27 18:27 | EXP.PN ---
Subjective *Date: 01/01/24 *Time: 20:30 Exam Data for Last 24 hours Vital signs and Labs for Last 24 Hours: Temp Pulse Resp BP Pulse Ox O2 Del Method 97.8 F 68 17 103/56 L 97 Room Air 12/27/23 16:00 12/27/23 16:00 12/27/23 16:00 12/27/23 16:00 12/27/23 16:00 12/27/23 17:00 Laboratory Results - last 24 hr 12/25/23 14:40: Hepatitis C Antibody Non reactive 12/27/23 05:40: Magnesium 1.8 12/27/23 06:11: WBC 9.4, RBC 3.24 L, Hgb 9.9 L, Hct 29.7 L, MCV 91.6, MCH 30.7, MCHC 33.5, RDW 14.8, Plt Count 156, MPV 8.6, Neut % (Auto) 85.8 H, Lymph % (Auto) 9.5 L, [place] % (Auto) 4.5, Eos % (Auto) 0.1, Baso % (Auto) 0.1, Neut # (Auto) 8.1 H, Lymph # (Auto) 0.9, [place] # (Auto) 0.4, Eos # (Auto) 0.0, Baso # (Auto) 0.0, Total Counted 100, Neutrophils % (Manual) 81 H, Lymphocytes % (Manual) 15, Monocytes % (Manual) 3, Eosinophils % (Manual) 1, Platelet Estimate Normal, RBC Morphology Normal, Sodium 143, Potassium 3.0 L, Chloride 112 H, Carbon Dioxide 18 L, Anion Gap 16.0 H, BUN 65 H, Creatinine 3.50 H, Estimated Creat Clear 16, Estimated GFR 13 L*, Est GFR ( Amer) 16 L* D, Glucose 150 H D, Calcium 8.9, Total Bilirubin 0.8, AST 31, ALT 11 L D, Alkaline Phosphatase 86, Total Protein 5.7 L, Albumin 3.0 L D, Globulin 2.7, Albumin/Globulin Ratio 1.1 12/27/23 07:50: D-Dimer 1.26 H I & O for Last 24 hours: Intake & Output 12/24/23 12/25/23 12/26/23 12/27/23 23:59 23:59 23:59 23:59 Intake Total 1920 / 2792 2372 / 2372 Output Total 575 / 775 900 / 900 Balance 1344 1472 / 1472 Weight 68.039 kg 67.7 kg 67.7 kg Microbiology Reports for the Last 24 Hours: Microbiology 12/25/23 15:20 Blood Blood Culture - Preliminary NO GROWTH AFTER 48 HOURS 12/25/23 15:15 Blood Blood Culture - Preliminary NO GROWTH AFTER 48 HOURS Constitutional Constitutional: no acute distress and cachectic Comments: Pleasant. *Routine HEENT Exam Head: Present normocephalic Eye: Present EOMI and PERRL ENT: Present mucous membranes moist *Routine Neck Exam Neck: Present supple; Absent lymphadenopathy *Routine Respiratory Exam Respiratory: Present CTA bilaterally *Routine Cardiovascular Exam Cardiovascular: Present RRR *Routine Abdominal Exam Abdominal: Present soft and normoactive bowel sounds; Absent tenderness *Routine Exam Comments: Mild feces discharge from vagina. *Routine Extremities Exam Extremities: Absent cyanosis, clubbing or edema *Routine Skin Exam Skin: Present warm; Absent rash *Routine Neurological Exam Neurological: Present alert Comments: Parkinsonian tremors. Assessment and Plan *Assessment and plan (1) Proctitis: Status: Acute Category: Medical Code(s): K62.89 - Other specified diseases of anus and rectum (2) Elevated troponin: Status: Acute Category: Medical Code(s): R79.89 - Other specified abnormal findings of blood chemistry (3) Fistula of vagina: Status: Acute Category: Medical Code(s): N82.8 - Other female genital tract fistulae (4) Acute on chronic renal failure: Status: Acute Category: Medical Code(s): N17.9 - Acute kidney failure, unspecified; N18.9 - Chronic kidney disease, unspecified (5) CAD in [place] artery: Status: Acute Category: Medical Code(s): I25.10 - Atherosclerotic heart disease of [place] coronary artery without angina pectoris (6) Parkinson disease: Status: Acute Category: Medical Code(s): G20.A1 - Parkinson's disease without dyskinesia, without mention of fluctuations (7) Failure to thrive: Status: Acute Category: Medical Plan Patient is a 68-year-old female with past medical history of CAD hypertension hyperlipidemia cardiac risk anxiety, Parkinsonsonism who presented to hospital for failure to thrive, dehydration. Patient at time of my evaluation appears very lethargic and not able to provide much history however patient appears to follow some commands, appears awake, patient does not appear to provide meaningful history, most of the history is from patient's chart. Patient has cracked lips, dry mucous membranes. Patient was found to have acute kidney injury in the emergency department and was admitted for further evaluation. #Parkinson's disease, dimentia, dysphagia #Failure to thrive #Severe malnutrition - My impression is that Parkinson's disease has processed beyond patient's ability to cope or compensate. She was in a very frail state at her nursing facility, with undiagnosed colovaginal fistula, severe rectal stool impaction, severely dehydrated from poor oral intake, physical deconditioning. - Not eating adequately, cannot care of herself. - [place] - Patient is improving with somewhat increased appetite after treatment of TARA, UTI/proctitis. However, if patient continues to have poor oral feeds patient would be appropriate candidate for hospice care given comorbidities. Will speak to case management on Friday. - Continue carbidopa/levadopa. ? Ensure supplements with meals. ? Nutrition consulted. #TARA on CKD stage III ? Initial creatinine 3.6 - Continue D5W @ 150ml/hr - Creatinine improving to 3.5 today. Baseline around 1.3. #UTI #Colovaginal fistula ? UA highly suggestive of UTI. Urine was feces colored initially in the setting of colovaginal fistula. - general surgery recommended outpatient eval and management colovaginal fistula. Stable, but continues to have mild vaginal fecal discharge. ? Urine cultures are negative. Will continue to treat given presentation as above. - Continue Zosyn day 3. #Severe rectal impaction #Proctitis - S/p mineral oil enema with multiple bowel movements. Abdominal pain improved. ? Initial WBC 14.5-resolved to 8.3. ? Continue Zosyn as above for UTI. ? MiraLAX daily. #Suspected PE - ECHO shows right heart strain with RV dysfunction, elevated d-dimer. - Wells criteria is 1.5. As such, PE is unlikely but cannot be ruled out given above studies. - Patient has TARA at this time, cannot perform CTA chest. - Continue therapeutic Lovenox. ? Consider CTA chest once TARA improves. #Elevated troponins #NSTEMI type II #CAD ? Troponins initially elevated up to 0.10, though in the setting of severe TARA on CKD. EKG did not show acute ischemic findings. ? 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 Normal EF and normal LVEDP. - Echo 10/2023 shows normal biventricular systolic function with mild biatrial dilation mild MR mild TR with RVSP of 25-30. Similar to the echo on admission. ? Continue atorvastatin 10 mg, Imdur 30 mg. ? Cardiology consulted, increased Ranexa to 1000 mg twice daily Full code Therapeutic
[2023-12-27 20:00] VITALS: BP 104/63; PULSE 59; RESP 18; TEMP 36.5; O2SAT 99
[2023-12-27] MEDS: ATORVASTATIN 10MG TABLET 10 MG PO (21:17)
[2023-12-27] MEDS: PROPRANOLOL 20MG TAB 20 MG PO (21:17)
[2023-12-28] MEDS: PIPERACILLIN/TAZO 2.25 GM in 0.9 % SODIUM CHLORIDE 50 ML IV ×4 (03:38→20:38)
[2023-12-28 03:55] VITALS: BP 101/58; PULSE 54; RESP 16; TEMP 36.4; O2SAT 98; BMI 20.9
--- NOTE | 2023-12-28 05:51 | PC.NURSE ---
68 yo female pt A/O x 1 but difficult to assess further orientation. Early in the shift, pt would not speak to service writer advisor. With med pass, she spoke by answering yes or no. Adjunct Nursing Faculty assisted 6[employer] GRADE TEACHER with incont care and linen change, pt became agitated and uncooperative arguing with staff. She continues to have loose stool from enemas. Iv antibiotics administered per MAR with D5 at 150/hr.
[2023-12-28 06:23] LABS: Basophils % 0.2 % (0.1-2.0); Eosinophils % 0.5 % (0.1-12.0); Hematocrit 27.5 % (37.0-47.0); Hemoglobin 9.4 g/dL (12.2-16.2); Lymphocytes % 11.8 % (10-50); Mean Corpuscular HGB Conc 34.3 g/dL (31.8-35.4); Mean Corpuscular Hemoglobin 31.2 pg (27.0-31.2); Mean Corpuscular Volume 91.1 fl (81-99); Mean Platelet Volume 8.6 fl (7.4-10.4); Monocytes # 0.5 K/mm3 (0.1-1.0); Monocytes % 5.5 % (1.7-9.3); Neutrophils # 6.8 K/mm3 (1.8-7.8); Platelet Count 145 K/mm3 (142-424); Red Blood Count 3.02 M/mm3 (4.20-5.40); Red Cell Distribution Width 14.4 % (11.5-17.5); White Blood Count 8.3 K/mm3 (4.8-10.8)
[2023-12-28 06:24] LABS: Albumin Level 2.9 g/dl (3.5-5.0); Chloride 110 mmol/L (98-107); Sodium 138 mmol/L (136-145)
[2023-12-28 06:27] LABS: Alanine Aminotransferase 11 U/L (12-78); Albumin/Globulin Ratio 1.2 (1.1-1.8); Alkaline Phosphatase 75 U/L (38-126); Anion Gap 12.9 mEq/L (5-15); Aspartate Amino Transferase 38 U/L (14-36); Bilirubin,Total 0.7 mg/dl (0.2-1.3); Blood Urea Nitrogen 41 mg/dl (7-17); Carbon Dioxide 18 mmol/L (22.0-30.0); Creatinine Clearance Estimated 25 mL/min (50-200); Estimated Glomerular Filt Rate 22 ml/min (>60); GFR (African American) 27 ML/MIN (>60); Globulin 2.5 g/dL (1.3-3.2); Total Protein,Serum 5.4 g/dl (6.3-8.2)
[2023-12-28 06:28] LABS: Calcium 8.7 mg/dl (8.4-10.2); Glucose 129 mg/dl (74-100)
[2023-12-28 06:29] LABS: Potassium 2.9 mmoL/L (3.5-5.1)
--- NOTE | 2023-12-28 06:55 | PC.NURSE ---
Critical K+ called from lab of 2.9. Informed Dr Calixto, no new orders
[2023-12-28 07:41] VITALS: BP 122/57; PULSE 52; RESP 18; TEMP 36.9; O2SAT 97
[2023-12-28] MEDS: RANOLAZINE 500MG ER TABLET 1000 MG PO ×2 (08:21→20:38)
[2023-12-28] MEDS: TOPIRAMATE 25MG TABLET 50 MG PO ×2 (08:21→20:39)
[2023-12-28] MEDS: CARBIDOPA/LEVODOPA 25/100MG TABLET 1 EACH PO ×3 (08:21→20:39)
[2023-12-28] MEDS: AMANTADINE 100MG CAPSULE 100 MG PO ×2 (08:22→20:38)
[2023-12-28] MEDS: PROPRANOLOL 20MG TAB 20 MG PO (08:22)
[2023-12-28] MEDS: ISOSORBIDE MONO 30MG TAB.ER.24H 30 MG PO (08:22)
[2023-12-28] MEDS: SODIUM CHLORIDE 0.45 % 1,000 ML 125 ML IV ×2 (08:39→23:21)
[2023-12-28] MEDS: KCl 20mEq/100ml 100 ML 50 MEQ IV ×2 (10:05→12:28)
--- NOTE | 2023-12-28 14:27 | P.PN_ITS ---
Subjective *Date: 12/28/23 *Time: 14:27 Exam Data for Last 24 hours Vital signs and Labs for Last 24 Hours: Temp Pulse Resp BP Pulse Ox O2 Del Method O2 Flow Rate 98.4 F 52 L 18 122/57 L 97 Room Air 4 12/28/23 07:41 12/28/23 07:41 12/28/23 07:41 12/28/23 07:41 12/28/23 07:41 12/28/23 11:00 12/28/23 05:00 Laboratory Results - last 24 hr 12/28/23 05:25: WBC 8.3, RBC 3.02 L, Hgb 9.4 L, Hct 27.5 L, MCV 91.1, MCH 31.2, MCHC 34.3, RDW 14.4, Plt Count 145, MPV 8.6, Neut % (Auto) 82.0 H, Lymph % (Auto) 11.8, [place] % (Auto) 5.5, Eos % (Auto) 0.5, Baso % (Auto) 0.2, Neut # (Auto) 6.8, Lymph # (Auto) 1.0, [place] # (Auto) 0.5, Eos # (Auto) 0.0, Baso # (Auto) 0.0, Sodium 138, Potassium 2.9 L*, Chloride 110 H, Carbon Dioxide 18 L, Anion Gap 12.9, BUN 41 H D, Creatinine 2.20 H D, Estimated Creat Clear 25, Estimated GFR 22 L, Est GFR ( Amer) 27 L D, Glucose 129 H, Calcium 8.7, Total Bilirubin 0.7, AST 38 H, ALT 11 L, Alkaline Phosphatase 75, Total Protein 5.4 L, Albumin 2.9 L, Globulin 2.5, Albumin/Globulin Ratio 1.2 I & O for Last 24 hours: Intake & Output 12/25/23 12/26/23 12/27/23 12/28/23 23:59 23:59 23:59 23:59 Intake Total 1920 / 2792 2372 / 3172 800 / 800 Output Total 575 / 775 900 / 900 1100 / 1100 Balance 1344 1472 / 2272 -300 / -300 Weight 68.039 kg 67.7 kg 67.7 kg 67.7 kg Microbiology Reports for the Last 24 Hours: Microbiology 12/25/23 16:42 Urine,Clean Catch Urine Culture - Final No growth. 12/25/23 15:20 Blood Blood Culture - Preliminary NO GROWTH AFTER 48 HOURS 12/25/23 15:15 Blood Blood Culture - Preliminary NO GROWTH AFTER 48 HOURS Constitutional Constitutional: no acute distress and cachectic Comments: Pleasant. *Routine HEENT Exam Head: Present normocephalic Eye: Present EOMI and PERRL ENT: Present mucous membranes moist *Routine Neck Exam Neck: Present supple; Absent lymphadenopathy *Routine Respiratory Exam Respiratory: Present CTA bilaterally *Routine Cardiovascular Exam Cardiovascular: Present RRR *Routine Abdominal Exam Abdominal: Present soft and normoactive bowel sounds; Absent tenderness *Routine Exam Comments: Mild feces discharge from vagina. *Routine Extremities Exam Extremities: Absent cyanosis, clubbing or edema *Routine Skin Exam Skin: Present warm; Absent rash *Routine Neurological Exam Neurological: Present alert Comments: Parkinsonian tremors. Assessment and Plan *Assessment and plan (1) Proctitis: Status: Acute Category: Medical Code(s): K62.89 - Other specified diseases of anus and rectum (2) Elevated troponin: Status: Acute Category: Medical Code(s): R79.89 - Other specified abnormal findings of blood chemistry (3) Fistula of vagina: Status: Acute Category: Medical Code(s): N82.8 - Other female genital tract fistulae (4) Acute on chronic renal failure: Status: Acute Category: Medical Code(s): N17.9 - Acute kidney failure, unspecified; N18.9 - Chronic kidney disease, unspecified (5) CAD in [place] artery: Status: Acute Category: Medical Code(s): I25.10 - Atherosclerotic heart disease of [place] coronary artery without angina pectoris (6) Parkinson disease: Status: Acute Category: Medical Code(s): G20.A1 - Parkinson's disease without dyskinesia, without mention of fluctuations (7) Failure to thrive: Status: Acute Category: Medical Plan Patient is a 68-year-old female with past medical history of CAD hypertension hyperlipidemia cardiac risk anxiety, Parkinsonsonism who presented to hospital for failure to thrive, dehydration. Patient at time of my evaluation appears very lethargic and not able to provide much history however patient appears to follow some commands, appears awake, patient does not appear to provide meaningful history, most of the history is from patient's chart. Patient has cracked lips, dry mucous membranes. Patient was found to have acute kidney injury in the emergency department and was admitted for further evaluation. #Parkinson's disease, dimentia, dysphagia #Failure to thrive #Severe malnutrition - My impression is that Parkinson's disease has processed beyond patient's ability to cope or compensate. She was in a dilapidated state at her nursing facility, with undiagnosed colovaginal fistula, severe rectal stool impaction, severely dehydrated from poor oral intake, physical deconditioning. - Not eating adequately, cannot care of herself. - [place] - Patient is improving with somewhat increased appetite after treatment of TARA, UTI/proctitis. However, if patient continues to have poor oral feeds patient would be appropriate candidate for hospice care given comorbidities. Will speak to case management. - Continue carbidopa/levadopa. ? Ensure supplements with meals. ? Nutrition consulted. #TARA on CKD stage III ?Initial creatinine 3.6 - Continue 1/2 NS maintenance fluids, discontinue D5W given hypokalemia. - Creatinine improving to 2.2 today. Baseline around 1.3. #UTI #Colovaginal fistula ? UA highly suggestive of UTI. Urine was feces colored initially in the setting of colovaginal fistula. - general surgery recommended outpatient eval and management colovaginal fistula. Stable, but continues to have mild vaginal fecal discharge. ? Urine cultures are negative. Will continue to treat given presentation as above. - Continue Zosyn day 3. #Severe rectal impaction #Proctitis - S/p mineral oil enema with multiple bowel movement. Abdominal pain improved. ? Initial WBC 14.5-resolved to 8.3. ? Continue Zosyn as above for UTI. ? MiraLAX daily. #Suspected PE - ECHO shows right heart strain with RV dysfunction, elevated d-dimer. - Wells criteria is 1.5. As such, PE is unlikely but cannot be ruled out given above studies. - Patient has TARA at this time, cannot perform CTA chest. -Continue therapeutic Lovenox. ? Consider CTA chest once TARA improves. #Elevated troponins #NSTEMI type II #CAD ? Troponins initially elevated up to 0.10, though in the setting of severe TARA on CKD. EKG did not show acute ischemic findings. ? 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 Normal EF and normal LVEDP. - Echo 10/2023 shows normal biventricular systolic function with mild biatrial dilation mild MR mild TR with RVSP of 25-30. Similar to the echo on admission. ? Continue atorvastatin 10 mg, Imdur 30 mg. ? Cardiology consulted, increased Ranexa to 1000 mg twice daily Full code Therapeutic
[2023-12-28] MEDS: ENOXAPARIN 80MG/0.8ML SYRINGE 70 MG SQ (15:21)
[2023-12-28 16:00] VITALS: BP 101/53; PULSE 60; RESP 18; TEMP 37.1; O2SAT 97
--- NOTE | 2023-12-28 17:12 | DIET.NUTRFU ---
Conculted for severe malnutrition, patient noted to have SPCM and supplements are ordered. Staff to assisting with meals. Very poor intake, only bites documented or referrals of meals. Will review POC with provider to determine patient wishes dependent on quality of life
--- NOTE | 2023-12-28 17:44 | PC.NURSE ---
pt states she feels better this shift. she appears to have higher energy levels; she was able to be transferred to the wheelchair and taken down the hallway. she has sat up to the chair today for dinner. pts appetite is increasing. urine color is now a dark yellow. she remains on RA and tolerating well. call light within reach.
[2023-12-28 20:00] VITALS: BP 108/53; PULSE 61; RESP 16; TEMP 37.1; O2SAT 97
[2023-12-28] MEDS: ATORVASTATIN 10MG TABLET 10 MG PO (20:38)
[2023-12-29] MEDS: PIPERACILLIN/TAZO 2.25 GM in 0.9 % SODIUM CHLORIDE 50 ML IV ×3 (02:03→14:50)
--- NOTE | 2023-12-29 03:56 | PC.NURSE ---
68 yo female pt is alert and more oriented this shift than previous night. Pt did have difficulty sucking through straw with meds. All PO meds administered with applesauce. Pt has only had one loose BM this shift. FC patent to BSD. VSS for pt, 02 sats above 90 on RA. Skin intact.
[2023-12-29 04:00] VITALS: BP 114/60; PULSE 57; RESP 18; TEMP 36.6; O2SAT 98; BMI 20.9
[2023-12-29 07:29] LABS: Alanine Aminotransferase 12 U/L (12-78); Albumin Level 2.7 g/dl (3.5-5.0); Alkaline Phosphatase 67 U/L (38-126); Anion Gap 8.2 mEq/L (5-15); Aspartate Amino Transferase 41 U/L (14-36); Bilirubin,Total 0.7 mg/dl (0.2-1.3); Blood Urea Nitrogen 24 mg/dl (7-17); Calcium 8.5 mg/dl (8.4-10.2); Carbon Dioxide 18 mmol/L (22.0-30.0); Chloride 115 mmol/L (98-107); Creatinine Clearance Estimated 35 mL/min (50-200); Estimated Glomerular Filt Rate 32 ml/min (>60); GFR (African American) 39 ML/MIN (>60); Globulin 2.6 g/dL (1.3-3.2); Glucose 71 mg/dl (74-100); Potassium 3.2 mmoL/L (3.5-5.1); Sodium 138 mmol/L (136-145); Total Protein,Serum 5.3 g/dl (6.3-8.2)
[2023-12-29 07:30] LABS: Basophils % 0.2 % (0.1-2.0); Eosinophils # 0.1 K/mm3 (0.0-0.4); Hematocrit 28.2 % (37.0-47.0); Hemoglobin 9.4 g/dL (12.2-16.2); Lymphocytes # 1.1 K/mm3 (0.7-4.5); Lymphocytes % 16.6 % (10-50); Mean Corpuscular HGB Conc 33.5 g/dL (31.8-35.4); Mean Corpuscular Volume 92.6 fl (81-99); Mean Platelet Volume 8.8 fl (7.4-10.4); Monocytes # 0.5 K/mm3 (0.1-1.0); Monocytes % 8.1 % (1.7-9.3); Neutrophils # 4.6 K/mm3 (1.8-7.8); Neutrophils % 74.1 % (37.0-80.0); Platelet Count 158 K/mm3 (142-424); Red Blood Count 3.05 M/mm3 (4.20-5.40); Red Cell Distribution Width 14.4 % (11.5-17.5); White Blood Count 6.3 K/mm3 (4.8-10.8)
[2023-12-29 07:43] VITALS: BP 134/54; PULSE 68; RESP 16; TEMP 36.6; O2SAT 95
--- NOTE | 2023-12-29 07:56 | CT_ITS ---
PROCEDURE INFORMATION: Exam: CTA Chest With Contrast Exam date and time: 12/29/2023 9:15 AM Age: 68 years old Clinical indication: Shortness of breath; Additional info: Rule out pe TECHNIQUE: Imaging protocol: Computed tomographic angiography of the chest with contrast. Exam focused on the arteries. 3D rendering (Not supervised by radiologist): MIP and/or 3D reconstructed images were created by the technologist. Radiation optimization: All CT scans at this facility use at least one of these dose optimization techniques: automated exposure control; mA and/or kV adjustment per patient size (includes targeted exams where dose is matched to clinical indication); or iterative reconstruction. Contrast material: ISO 370; Contrast volume: 80 ml; Contrast route: INTRAVENOUS (IV); COMPARISON: CT CHEST WO CON 12/25/2023 3:25 PM FINDINGS: Pulmonary arteries: No PE. No evidence of cardiac strain. Aorta: Unremarkable. No aortic aneurysm. No aortic dissection. Lungs: Evaluation of the lungs is limited by respiratory motion artifact. Small focal patchy ground-glass opacities are seen in the medial aspect of the right lower lobe and less prominently dependent left lower lobe. May be infectious or inflammatory. Mild right basilar subsegmental atelectasis The lungs are otherwise clear. Pleural spaces: Unremarkable. No pneumothorax. No pleural effusion. Heart: See Pulmonary arteries finding. Lymph nodes: Unremarkable. No enlarged lymph nodes. Bones/joints: No acute osseous abnormality. Soft tissues: Mild anasarca. IMPRESSION: 1. No PE. No evidence of cardiac strain. 2. Small focal patchy ground-glass opacities are seen in the medial aspect of the right lower lobe and less prominently dependent left lower lobe. May be infectious or inflammatory. Recommend imaging follow-up to resolution.
[2023-12-29] MEDS: SODIUM CHLORIDE 0.45 % 1,000 ML 125 ML IV (07:57)
--- NOTE | 2023-12-29 08:17 | P.PN_ITS ---
Subjective *Date: 12/29/23 *Time: 08:17 Medical Exam Vital signs and Labs for Last 24 Hours: Vital Signs Temp Pulse Resp BP Pulse Ox O2 Del Method 12/29/23 07:43 98 F 68 16 134/54 L 95 Room Air 12/29/23 06:48 Room Air 12/29/23 05:00 Room Air 12/29/23 04:00 97.8 F 57 L 18 114/60 98 Room Air 12/29/23 03:00 Room Air 12/29/23 01:00 Room Air 12/28/23 23:00 Room Air 12/28/23 21:00 Room Air 12/28/23 20:00 97 Room Air 12/28/23 20:00 98.7 F 61 16 108/53 L 97 Room Air 12/28/23 18:48 Room Air 12/28/23 17:00 Room Air 12/28/23 16:00 98.7 F 60 18 101/53 L 97 Room Air 12/28/23 15:00 Room Air 12/28/23 13:00 Room Air 12/28/23 11:00 Room Air 12/28/23 09:00 Room Air Intake and Output 12/28/23 12/29/23 12/29/23 23:59 07:59 15:59 Intake Total 300 / 1775 675 / 675 Output Total 200 / 1300 400 / 400 Balance 100 / 475 275 / 275 Intake: Intake, Total IV Amount 300 / 1775 675 / 675 KCl 20mEq/100ml 100 ml @ 50 mls 200 / 200 /hr IV Q2H BENEDICTO Rx#:[id number] Piperacillin/Tazo 2.25 gm In 0. 100 / 200 50 / 50 9 % Sodium Chloride 50 ml @ 100 mls/hr IV Q6H BENEDICTO Rx#:[id number] Sodium Chloride 0.45 % 1,000 ml 625 / 625 @ 125 mls/hr IV .Q8H BENEDICTO Rx#: [id number] Output: Output, Urine Amount 200 / 1300 400 / 400 Other: Number of Unmeasured Voids 0 0 Number of Bowel Movements 1 Weight 67.7 kg Patient Weight 12/29/23 23:59 Weight 67.7 kg Laboratory Results - last 24 hr 12/29/23 06:28: WBC 6.3, RBC 3.05 L, Hgb 9.4 L, Hct 28.2 L, MCV 92.6, MCH 31.0, MCHC 33.5, RDW 14.4, Plt Count 158, MPV 8.8, Neut % (Auto) 74.1, Lymph % (Auto) 16.6, [place] % (Auto) 8.1, Eos % (Auto) 1.0, Baso % (Auto) 0.2, Neut # (Auto) 4.6, Lymph # (Auto) 1.1, [place] # (Auto) 0.5, Eos # (Auto) 0.1, Baso # (Auto) 0.0, Sodium 138, Potassium 3.2 L, Chloride 115 H, Carbon Dioxide 18 L, Anion Gap 8.2, BUN 24 H D, Creatinine 1.60 H D, Estimated Creat Clear 35, Estimated GFR 32 L, Est GFR ( Amer) 39 L D, Glucose 71 L, Calcium 8.5, Total Bilirubin 0.7, AST 41 H, ALT 12, Alkaline Phosphatase 67, Total Protein 5.3 L, Albumin 2.7 L, Globulin 2.6, Albumin/Globulin Ratio 1.0 L I & O for Labs for Last 24 Hours: Intake & Output 12/26/23 12/27/23 12/28/23 12/29/23 23:59 23:59 23:59 23:59 Intake Total 1820 / 2692 2372 / 3172 1100 / 1775 675 / 675 Output Total 575 / 775 900 / 900 1300 / 1300 400 / 400 Balance 1245 / 1917 1472 / 2272 -200 / 475 275 / 275 Weight 67.7 kg 67.7 kg 67.7 kg 67.7 kg Microbiology Reports for the Last 24 Hours: Microbiology 12/25/23 16:42 Urine,Clean Catch Urine Culture - Final No growth. The patient's infection will respond to the chosen ABx?: Yes (BLOOD AND URINE CULTURE NO GROWTH, AFEBRILE OVER 24 HRS, WBC 6.3/TREND DOWN) Is the patient receiving the right drug, dose, and route?: Yes Could a more targeted ABx be ordered?: No How long ABx needed (days)?: 7
[2023-12-29 09:01] LABS: Thyroid Stimulating Hormone 2.47 uIU/mL (0.465-4.68)
[2023-12-29] MEDS: MAGNESIUM SULFATE IN WATER 2 GM/50 ML PIGGYBACK IV (09:06)
[2023-12-29] MEDS: 0.9 % SODIUM CHLORIDE 50 ML VIAL IV (09:35)
[2023-12-29] MEDS: IOPAMIDOL-370 (76%);100ML BOTTLE 70 ML IV (09:35)
[2023-12-29] MEDS: SODIUM CHLORIDE 0.9% 10ML SYR (RAD ONLY) 10 ML IV (09:35)
[2023-12-29 09:37] LABS: Vitamin B12 252 pg/mL (239-931)
[2023-12-29 09:44] LABS: Folate 4.09 ng/mL
[2023-12-29] MEDS: POTASSIUM CHLORIDE 20MEQ TAB 40 MEQ PO ×2 (10:00→12:43)
[2023-12-29] MEDS: RANOLAZINE 500MG ER TABLET 1000 MG PO (10:02)
[2023-12-29] MEDS: ISOSORBIDE MONO 30MG TAB.ER.24H 30 MG PO (10:02)
[2023-12-29] MEDS: CARBIDOPA/LEVODOPA 25/100MG TABLET 1 EACH PO ×2 (10:03→12:44)
[2023-12-29] MEDS: TOPIRAMATE 25MG TABLET 50 MG PO (10:03)
[2023-12-29] MEDS: AMANTADINE 100MG CAPSULE 100 MG PO (10:08)
[2023-12-29] MEDS: POLYETHYLENE GLYCOL 3350 17 GM PACKET PO (10:09)
--- NOTE | 2023-12-29 12:22 | DIET.NUTRFU ---
Addendum entered by Lashell Lang RD, LD 12/29/23 14:30: nursing reported she drank 1/2 of ensure, nursing staff was very persistent about drinking it. Addendum entered by Lashell Lang RD, LD 12/29/23 13:38: Saw patient after lunch with therapy, she was sitting at side of bed, alert. This RD asked if she wanted anything else to eat and she did agree to drink vanilla or strawberry ensure, asked the nursing staff to assist with that. She often says she wants to sleep instead of eating. She dislikes applesauce. According to the nurse her BM maybe slowing down, only a smear so far today Original Note: Patient continues to have poor po intake, nursing reported she consumed a couple bites of pureed peaches and took her medications this morning. Patient continues to decline, she has multiple comorbilities that would qualify her for hospice, along with SPCM with significant wt loss. Based on quality of life would not recommend enteral feedings at this time. No family involvement at this time, she is a rocha of the [facility]. Labs reviewed, renal labs improved, potassium low at 3.2L (2.9) potassium replacement ordered and NaCl in place for hydration. mineral oil enema was given on 12/25 with loose bowels noted since then, ABT tx could also be causing loose bowels.
[2023-12-29] MEDS: ENOXAPARIN 80MG/0.8ML SYRINGE 70 MG SQ (14:50)
--- NOTE | 2023-12-29 15:35 | P.DS_ITS ---
General Admission date:: 12/25/23 HPI HPI HPI: Patient is a 68-year-old female with past medical history of CAD hypertension hyperlipidemia cardiac risk anxiety, Parkinsonsonism who presented to hospital for failure to thrive, dehydration. Patient at time of my evaluation appears very lethargic and not able to provide much history however patient appears to follow some commands, appears awake, patient does not appear to provide mean ingful history, most of the history is from patient's chart. Patient has cracked lips, dry mucous membranes. Patient was found to have acute kidney injury in the emergency department and was admitted for further evaluation. Hospital Course Hospital Course Hospital Course: Patient is a 68-year-old female with past medical history of CAD hypertension hyperlipidemia cardiac risk anxiety, Parkinsonsonism who presented to hospital for failure to thrive, dehydration. Patient at time of my evaluation appears very lethargic and not able to provide much history however patient appears to follow some commands, appears awake, patient does not appear to provide meaningful history, most of the history is from patient's chart. Patient has cracked lips, dry mucous membranes. Patient was found to have acute kidney injury in the emergency department and was admitted for further evaluation. #Parkinson's disease, dimentia, dysphagia #Failure to thrive #Severe protein malnutrition - My impression is that Parkinson's disease has processed beyond patient's ability to cope or compensate. She was in a very frail state at nursing facility, with colovaginal fistula, severe rectal stool impaction, severely dehydrated from poor oral intake, physical deconditioned. - Not eating adequately, cannot care of herself. - She is the [place] of [place] state. ? TSH, B12, folate normal. - Patient is improving with somewhat increased appetite after treatment of TARA, UTI/proctitis. However, she continues to have very poor appetite and minimal oral intake. For this reason, patient would benefit from hospice care from progressive Parkinson's disease. We have spoken to [facility], who will start the process of evaluating her for end-of-life care. From this standpoint, she is medically stable to be discharged back to the facility. ? Consider appetite stimulants at the nursing facility. - Continue carbidopa/levadopa. ? Ensure supplements with meals. #TARA on CKD stage III ?Initial creatinine 3.6 - Improved to 1.6 after IV fluid rehydration. #Hypertension ? Patient's blood pressures have been soft during hospitalization given poor oral intake. ? Discontinued losartan, Imdur, propranolol. #UTI #Colovaginal fistula ? UA highly suggestive of UTI. Urine was feces colored initially in the setting of colovaginal fistula. - general surgery recommended outpatient eval and management colovaginal fistula. Stable, but continues to have mild vaginal fecal discharge. ? Urine cultures are negative. Will continue to treat given presentation as above. -Received 5 days of Zosyn. #Severe rectal impaction #Proctitis - S/p mineral oil enema with multiple bowel movements. Abdominal pain improved. ? Initial WBC 14.5-resolved to 8.3. Received 5 days of Zosyn. ? MiraLAX daily. Consider enemas if needed. # Right ventricular dysfunction - ECHO shows right heart strain with RV dysfunction, elevated d-dimer. - Wells criteria is 1.5. As such, PE is unlikely but cannot be ruled out given above studies. - CTPA negative for PE. Discontinued therapeutic Lovenox. #Elevated troponins #NSTEMI type II #CAD ? Troponins initially elevated up to 0.10, though in the setting of severe TARA on CKD. EKG did not show acute ischemic findings. ? [facility] 11/28/2023: Continue medical management for mild nonflow disease and mode rate myocardial bridge involving the mid LAD. Normal EF and normal LVEDP. - Echo 10/2023 shows normal biventricular systolic function with mild biatrial dilation mild MR mild TR with RVSP of 25-30. Similar to the echo on admission. ? Continue atorvastatin 10 mg, Imdur 30 mg. ? Cardiology consulted, increased Ranexa to 1000 mg twice daily. Exam Data for Last 24 hours Vital signs and Labs for Last 24 Hours: Temp Pulse Resp BP Pulse Ox O2 Del Method O2 Flow Rate 98 F 68 16 134/54 L 95 Room Air 4 12/29/23 07:43 12/29/23 07:43 12/29/23 07:43 12/29/23 07:43 12/29/23 07:43 12/29/23 15:00 12/28/23 05:00 Laboratory Results - last 24 hr 12/29/23 06:28: WBC 6.3, RBC 3.05 L, Hgb 9.4 L, Hct 28.2 L, MCV 92.6, MCH 31.0, MCHC 33.5, RDW 14.4, Plt Count 158, MPV 8.8, Neut % (Auto) 74.1, Lymph % (Auto) 16.6, [place] % (Auto) 8.1, Eos % (Auto) 1.0, Baso % (Auto) 0.2, Neut # (Auto) 4.6, Lymph # (Auto) 1.1, [place] # (Auto) 0.5, Eos # (Auto) 0.1, Baso # (Auto) 0.0, Sodium 138, Potassium 3.2 L, Chloride 115 H, Carbon Dioxide 18 L, Anion Gap 8.2, BUN 24 H D, Creatinine 1.60 H D, Estimated Creat Clear 35, Estimated GFR 32 L, Est GFR ( Amer) 39 L D, Glucose 71 L, Calcium 8.5, Total Bilirubin 0.7, AST 41 H, ALT 12, Alkaline Phosphatase 67, Total Protein 5.3 L, Albumin 2.7 L, Globulin 2.6, Albumin/Globulin Ratio 1.0 L, Vitamin B12 252, Folate 4.09, TSH 2.47 I & O for Last 24 hours: Intake & Output 12/26/23 12/27/23 12/28/23 12/29/23 23:59 23:59 23:59 23:59 Intake Total 1820 / 2692 2372 / 3172 1100 / 1775 3198 / 3198 Output Total 575 / 775 900 / 900 1300 / 1300 400 / 400 Balance 1245 / 1917 1472 / 2272 -200 / 475 2798 / 2798 Weight 67.7 kg 67.7 kg 67.7 kg 67.7 kg Microbiology Reports for the Last 24 Hours: Microbiology 12/25/23 15:20 Blood Blood Culture - Preliminary NO GROWTH AFTER 4 DAYS 12/25/23 15:15 Blood Blood Culture - Preliminary NO GROWTH AFTER 4 DAYS Constitutional Constitutional: no acute distress and cachectic Comments: Pleasant. *Routine HEENT Exam Head: Present normocephalic Eye: Present EOMI and PERRL ENT: Present mucous membranes moist *Routine Neck Exam Neck: Present supple; Absent lymphadenopathy *Routine Respiratory Exam Respiratory: Present CTA bilaterally *Routine Cardiovascular Exam Cardiovascular: Present RRR *Routine Abdominal Exam Abdominal: Present soft and normoactive bowel sounds; Absent tenderness *Routine Exam Comments: Mild feces discharge from vagina. *Routine Extremities Exam Extremities: Absent cyanosis, clubbing or edema *Routine Skin Exam Skin: Present warm; Absent rash *Routine Neurological Exam Neurological: Present alert Comments: Parkinsonian tremors. Results Data Completed and Pending Labs on day of discharge: Labs from last 24 hours 12/29/23 06:28 WBC 6.3 RBC 3.05 L Hgb 9.4 L Hct 28.2 L MCV 92.6 MCH 31.0 MCHC 33.5 RDW 14.4 Plt Count 158 MPV 8.8 Neut % (Auto) 74.1 Lymph % (Auto) 16.6 [place] % (Auto) 8.1 Eos % (Auto) 1.0 Baso % (Auto) 0.2 Neut # (Auto) 4.6 Lymph # (Auto) 1.1 [place] # (Auto) 0.5 Eos # (Auto) 0.1 Baso # (Auto) 0.0 Sodium 138 Potassium 3.2 L Chloride 115 H Carbon Dioxide 18 L Anion Gap 8.2 BUN 24 H D Creatinine 1.60 H D Estimated Creat Clear 35 Estimated GFR 32 L Est GFR ( Amer) 39 L D Glucose 71 L Calcium 8.5 Total Bilirubin 0.7 AST 41 H ALT 12 Alkaline Phosphatase 67 Total Protein 5.3 L Albumin 2.7 L Globulin 2.6 Albumin/Globulin Ratio 1.0 L Vitamin B12 252 Folate 4.09 TSH 2.47 Preliminary micro results at discharge 12/25/23 15:20 Blood Culture - Preliminary Blood NO GROWTH AFTER 4 DAYS 12/25/23 15:15 Blood Culture - Preliminary Blood NO GROWTH AFTER 4 DAYS DS: Diagnosis Discharge Diagnosis (1) Proctitis: Status: Acute Code(s): K62.89 - Other specified diseases of anus and rectum (2) Elevated troponin: Status: Acute Code(s): R79.89 - Other specified abnormal findings of blood chemistry (3) Fistula of vagina: Status: Acute Code(s): N82.8 - Other female genital tract fistulae (4) Acute on chronic renal failure: Status: Acute Code(s): N17.9 - Acute kidney failure, unspecified; N18.9 - Chronic kidney disease, unspecified (5) CAD in [place] artery: Status: Acute Code(s): I25.10 - Atherosclerotic heart disease of [place] coronary artery without angina pectoris (6) Parkinson disease: Status: Acute Code(s): G20.A1 - Parkinson's disease without dyskinesia, without mention of fluctuations (7) Failure to thrive: Status: Acute Meds Home Medications and Allergies Home Medications ?Medication ?Instructions ?Recorded ?Confirmed ?Type atorvastatin 10 mg tablet (Lipitor) 10 mg PO DAILY 07/10/22 12/25/23 History carbidopa 25 mg-levodopa 100 mg 1 tab PO TID 10/21/22 12/25/23 History tablet (Sinemet) amantadine HCl 100 mg tablet 100 mg PO BID #60 tabs 04/01/23 12/25/23 Rx topiramate 50 mg tablet 50 mg PO BID 12/11/23 12/25/23 History ranolazine 500 mg tablet,extended 500 mg PO BID 12/25/23 12/25/23 History release,12 hr polyethylene glycol 3350 17 gram 17 g PO DAILY 30 days #30 ea 12/29/23 Rx oral powder packet (HealthyLax) New Prescriptions to Start Prescriptions: polyethylene glycol 3350 [HealthyLax] Misael Mahmood Allergies Allergy/AdvReac Type Severity Reaction Status Date / Time cephalexin [From Keflex] Allergy Intermediate Verified 12/22/23 15:19 amlodipine [From Norvasc] AdvReac Mild swelling Verified 12/22/23 15:19 Discharge Plan Disposition Patient Disposition: er SNF Condition: Fair Discharge Order Discharge Orders: Discharge Order (Routine); Ordered 12/29/23 Ordered By: Misael Mahmood Follow up Plan Prescriptions/Medication Reconciliation: New polyethylene glycol 3350 [HealthyLax] 17 gram Powder In Packet 17 g PO DAILY 30 Days Qty: 30 0RF Continued atorvastatin [Lipitor] 10 mg tablet 10 mg PO DAILY carbidopa-levodopa [Sinemet] 25-100 mg tablet 1 tab PO TID amantadine HCl 100 mg tablet 100 mg PO BID Qty: 60 5RF topiramate 50 mg tablet 50 mg PO BID ranolazine 500 mg Tablet Extended Release 12 Hr 500 mg PO BID Discontinued propranolol 20 mg tablet 20 mg PO BID isosorbide mononitrate 30 mg tablet extended release 24 hr 30 mg PO DAILY Qty: 90 3RF losartan 50 mg tablet 50 mg PO DAILY Qty: 90 3RF Problem Reconciliation Problems Reviewed?: Yes Patient Discharge Instructions ACTIVITY: Continue current activity DIET: regular diet Patient Instructions: DI for Urinary Tract Infection (UTI), DI for Rectovaginal Fistula Print Language: Ukrainian Providers Primary Care Provider: Easton Lorenzana Provider: Misael Mahmood Attending Provider: Misael Mahmood
--- NOTE | 2023-12-29 16:52 | PC.NURSE ---
attempted to call report to group home. Nurse stated to call her back in 15 minutes so that she had time to look over the d/c summary.
--- NOTE | 2023-12-29 17:11 | PC.NURSE ---
report given to jail at this time
--- NOTE | 2023-12-29 17:13 | PC.NURSE ---
ambulance notified of transfer at this time
[2024-01-01 07:32] LABS: Osmolality, Urine 477 mOsmol/kg (.)
== END 2023-12-29 19:19 | DRG 682 ==
LOC: ER 17:48 → 2ND 18:07
PROVIDERS: Internal Medicine; Physician Assistant; Admitting Provider Student in an Organized Health Care Education/Training Program; Emergency Provider Student in an Organized Health Care Education/Training Program; PCP Internal Medicine; Visit Provider Student in an Organized Health Care Education/Training Program
DX: N17.9 Acute kidney failure, unspecified (principal); E43 Unspecified severe protein-calorie malnutrition; G21.11 Neuroleptic induced parkinsonism; N39.0 Urinary tract infection, site not specified; I5A Non-ischemic myocardial injury (non-traumatic); N82.3 Fistula of vagina to large intestine; N18.30 Chronic kidney disease, stage 3 unspecified; I25.10 Atherosclerotic heart disease of native coronary artery without angina pectoris; G24.01 Drug induced subacute dyskinesia; K62.89 Other specified diseases of anus and rectum; F17.210 Nicotine dependence, cigarettes, uncomplicated; E86.0 Dehydration; K56.41 Fecal impaction; R62.7 Adult failure to thrive; G25.0 Essential tremor; Z79.899 Other long term (current) drug therapy; Z68.20 Body mass index [BMI] 20.0-20.9, adult; Z73.89 Other problems related to life management difficulty; T43.505A Adverse effect of unspecified antipsychotics and neuroleptics, initial encounter
CPT/HCPCS: 36415; 71250; 71275; 74176; 76770; 80048; 80053; 81001; 82550; 82570; 82607; 82746; 83605; 83690; 83735; 83880; 83930; 83935; 84100; 84145; 84443; 84484; 84540; 85007; 85025; 85378; 85730; 86803; 87040; 87086; 87389; 92610; 93005; 93306; 97162; 97166; 97530; 99285; J1644; J1650; J1885; J2405; J2543; J3475; J7030; J7060; Q9967